=== PATIENT | female | born 1935 | race Caucasian/White ===

== ENCOUNTER 2017-04-28 17:52 | Inpatient (IN) ==
[2017-04-28] MEDS ORDERED: Ipratropium/Albuterol Neb 3 ML IH ONE (18:23)
[2017-04-28] MEDS ORDERED: methylPREDNISolone 125 MG/2 ML VIAL IVP ONE (18:23)
--- NOTE | 2017-04-28 18:27 | Emergency Department Note ---
Disposition Clinical Impression: Acute exacerbation of chronic obstructive airways disease, HEIDY (acute kidney injury) Acute and chronic respiratory failure Qualifiers: Respiratory failure complication: hypoxia and hypercapnia Qualified Code(s): J96.21 - Acute and chronic respiratory failure with hypoxia; J96.22 - Acute and chronic respiratory failure with hypercapnia; J96.22 - Acute and chronic respiratory failure with hypercapnia; J96.22 - Acute and chronic respiratory failure with hypercapnia Disposition: Admitted As Inpatient Referrals: Virgilio Delcid Jr, MD [Primary Care Provider] - Forms: ED Satisfaction Letter Time of Disposition: 22:02 SOB HPI - General Chief Complaint: ED Shortness of Breath/Dyspnea Stated Complaint: SHABNAM Time Seen by Provider: 04/28/17 18:21 Source: patient Limitations: no limitations Nursing Notes Reviewed: Yes Vital Signs Reviewed: Yes - History of Present Illness Mrs. Jesus, an 82-year-old female, presents from home for evaluation of increased work of breathing. Onset this afternoon and persisted. Mildly improved with at home albuterol nebulizer. Patient has history of chronic respiratory failure; COPD on 2.5 L oxygen continuous. PMH: COPD, A. fib on unknown anticoagulant, Parkinson's, hyperlipidemia ROS: Positive: Dyspnea, increased work of breathing Negative: Fever, chills, nausea, vomiting, chest pains, palpitations, abdominal pains, unusual weakness, cough, vertigo - Related Data Home Medications Medication Instructions Recorded Confirmed Carbidopa/Levodopa ER 50/200 1 each PO TID #0 02/26/15 04/28/17 [Sinemet ER 50-200 TAB] Quetiapine Fumarate [SEROquel] 12.5 mg PO HS #0 02/26/15 04/28/17 Diltiazem HCl [Diltiazem ER] 180 mg PO DAILY 04/28/17 04/28/17 Ipratropium/Albuterol Neb [Duoneb] 3 ml IH Q4H PRN 04/28/17 04/28/17 Previous Rx's Medication Instructions Recorded Aspirin Enteric Coated [Aspirin EC] 81 mg PO DAILY #30 tablet. 03/08/15 Calcitriol [Rocaltrol] 0.25 mcg PO DAILY #30 capsule 03/08/15 Allergies Allergy/AdvReac Type Severity Reaction Status Date / Time No Known Allergies Allergy Verified 02/25/15 19:57 All systems ED: reviewed and negative except as stated. 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 With her baseline 3 L oxygen via nasal cannula, she was oxygenating in the mid 70s on intake. Patient is oxygenating well with a nonrebreather however she is ventilating poorly in that she has significant hypercarbia; will begin BiPAP. Patient tolerating BiPAP quite well. O2 saturation high 90s. Chest x-ray not concerning for acute process. Initial lab specimens clotted; rejected. Will redraw. Lab work shows elevated creatinine which is above patient's baseline; acute kidney injury. I discussed the patient with the admitting hospitalist, Dr. Rousseau, who agrees to accept the patient for continued evaluation and management. Chest X-Ray 04/28/17 18:23 IMPRESSION: Minimal irregular opacity is seen over the right apex. This may be artifactual due to overlapping structures or represent a small lung nodule. Dedicated chest CT recommended for further evaluation on a nonemergent basis. D/ / Lin East MD / Lin East MD Interpreting Provider: Lin East MD Vital Signs Temperature 98.5 F 04/28/17 18:13 Pulse Rate 105 04/28/17 18:13 Respiratory Rate 18 04/28/17 18:13 Blood Pressure 144/79 04/28/17 18:13 O2 Sat by Pulse Oximetry 70 04/28/17 18:13 Temperature 98.5 F 04/28/17 18:13 Pulse Rate 92 04/28/17 21:00 Respiratory Rate 27 04/28/17 21:19 Blood Pressure 123/70 04/28/17 21:00 O2 Sat by Pulse Oximetry 100 04/28/17 21:19 Oxygen Delivery Oxygen Delivery Bipap Shortness of Breath/Dyspnea - Lab Data Result diagrams: 04/28/17 21:14 04/28/17 20:32 Lab Results 04/28/17 04/28/17 04/28/17 Range/Units 18:37 19:30 20:32 WBC (4.3-11.1) K/mcL RBC (3.82-4.97) M/mcL Hgb (11.5-15.4) g/dL Hct (35.3-44.9) % MCV (83.0-100.0) fL MCH (28.0-33.3) pg MCHC (31.6-35.5) g/dL RDW (11.5-14.5) % Plt Count (140-400) K/mcL MPV (9.4-12.4) fL Immature Gran % (0-4) % Seg Neutrophils % % Lymphocytes % % Monocytes % % Eosinophils % % Basophils % % Neutrophils # (1.6-8.9) K/mcL Lymphocytes # (0.6-4.6) K/mcL Monocytes # (0.0-1.3) K/mcL Eosinophils # (0.0-0.6) K/mcL Basophils # (0.0-0.2) K/mcL Immature Plt Fraction (1.1-6.1) % ABG pH 7.34 (7.32-7.45) pH Units ABG pCO2 72 H* (35-45) mmHg ABG pO2 374 H (85-104) mmHg ABG HCO3 38 H (21-27) mEq/L ABG Total CO2 40 H (20-26) mEq/L ABG O2 Saturation 100 H (95-98) % ABG Base Excess 9 H (-2 to 3) mEq/L O2 Delivery Device NRB Inspired O2 100.0 (1-15=lpm zf87-673=%) Sodium 148 H (136-145) mEq/L Potassium 4.3 (3.5-4.5) mEq/L Chloride 107 (98-109) mEq/L Carbon Dioxide 28 (19-29) mEq/L BUN 31 H (7-20) mg/dL Creatinine 1.34 H (0.57-1.11) mg/dL Est GFR ( Amer) 46 L (> 60) Est GFR (Non-Af Amer) 38 L (> 60) BUN/Creatinine Ratio 23 (6-26) Glucose 201 H (70-99) mg/dL Calculated Osmolality 318 H (280-300) Calcium 10.5 (8.6-10.8) mg/dL Specimen Rejected Clotted 04/28/17 Range/Units 21:14 WBC 10.1 (4.3-11.1) K/mcL RBC 4.02 (3.82-4.97) M/mcL Hgb 11.9 (11.5-15.4) g/dL Hct 39.5 (35.3-44.9) % MCV 98.3 (83.0-100.0) fL MCH 29.6 (28.0-33.3) pg MCHC 30.1 L (31.6-35.5) g/dL RDW 14.6 H (11.5-14.5) % Plt Count 217 (140-400) K/mcL MPV 10.3 (9.4-12.4) fL Immature Gran % 0.5 (0-4) % Seg Neutrophils % 86.2 % Lymphocytes % 9.4 % Monocytes % 3.4 % Eosinophils % 0.3 % Basophils % 0.2 % Neutrophils # 8.7 (1.6-8.9) K/mcL Lymphocytes # 1.0 (0.6-4.6) K/mcL Monocytes # 0.3 (0.0-1.3) K/mcL Eosinophils # 0.0 (0.0-0.6) K/mcL Basophils # 0.0 (0.0-0.2) K/mcL Immature Plt Fraction 3.4 (1.1-6.1) % ABG pH (7.32-7.45) pH Units ABG pCO2 (35-45) mmHg ABG pO2 (85-104) mmHg ABG HCO3 (21-27) mEq/L ABG Total CO2 (20-26) mEq/L ABG O2 Saturation (95-98) % ABG Base Excess (-2 to 3) mEq/L O2 Delivery Device Inspired O2 (1-15=lpm [id number]=%) Sodium (136-145) mEq/L Potassium (3.5-4.5) mEq/L Chloride (98-109) mEq/L Carbon Dioxide (19-29) mEq/L BUN (7-20) mg/dL Creatinine (0.57-1.11) mg/dL Est GFR ( Amer) (> 60) Est GFR (Non-Af Amer) (> 60) BUN/Creatinine Ratio (6-26) Glucose (70-99) mg/dL Calculated Osmolality (280-300) Calcium (8.6-10.8) mg/dL Specimen Rejected - EKG Data EKG attestation: Yes I reviewed and interpreted this EKG. EKG results narrative: EKG dated 28 April 2017 at 18:25 interpreted as sinus rhythm with a rate of 96. Normal intervals OK 168, QRS 75, QT/QTC 344/. Normal intervals. Nonspecific ST-T changes. Compared to previous dated 03/03/2015 showing no acute extremity changes comparison.
--- NOTE | 2017-04-28 18:28 | Emergency Department Note ---
Disposition Clinical Impression: Acute exacerbation of chronic obstructive airways disease, HEIDY (acute kidney injury), Acute and chronic respiratory failure Disposition: Admitted As Inpatient General Adult HPI - General Chief complaint: ED Shortness of Breath/Dyspnea Stated complaint: SHABNAM Time Seen by Provider: 04/28/17 18:21 Source: patient Limitations: no limitations - History of Present Illness Pain Scale: 5 - Related Data Home Medications Medication Instructions Recorded Confirmed Carbidopa/Levodopa ER 50/200 1 each PO TID #0 02/26/15 04/28/17 [Sinemet ER 50-200 TAB] Quetiapine Fumarate [SEROquel] 12.5 mg PO HS #0 02/26/15 04/28/17 Diltiazem HCl [Diltiazem ER] 180 mg PO DAILY 04/28/17 04/28/17 Ipratropium/Albuterol Neb [Duoneb] 3 ml IH Q4H PRN 04/28/17 04/28/17 Previous Rx's Medication Instructions Recorded Aspirin Enteric Coated [Aspirin EC] 81 mg PO DAILY #30 tablet. 03/08/15 Calcitriol [Rocaltrol] 0.25 mcg PO DAILY #30 capsule 03/08/15 Allergies Allergy/AdvReac Type Severity Reaction Status Date / Time No Known Allergies Allergy Verified 02/25/15 19:57 Past Medical History - Past Medical History Medical history: Reports: COPD, dementia, other Surgical history: Reports: hysterectomy, other (neck surgery) Psychiatric history: Reports: no psych history INSIDE ACCOUNT REPRESENTATIVE history: Reports: non-contributory - Social History Smoking Status: Heavy tobacco smoker Smokeless Tobacco Status: No Alcohol use: Reports: none Drug use: Reports: none Physical Exam - General Limitations: no limitations General appearance: alert, in no apparent distress Course Vital Signs Temperature 98.5 F 04/28/17 18:13 Pulse Rate 105 04/28/17 18:13 Respiratory Rate 18 04/28/17 18:13 Blood Pressure 144/79 04/28/17 18:13 O2 Sat by Pulse Oximetry 70 04/28/17 18:13 Temperature 97.6 F 04/29/17 06:30 Pulse Rate 73 04/29/17 06:30 Respiratory Rate 18 04/29/17 06:30 Blood Pressure 117/70 04/29/17 06:30 O2 Sat by Pulse Oximetry 100 11/07/17 06:30 Oxygen Delivery Oxygen Delivery Room Air Medical Decision Making - Lab Data Result diagrams: 04/29/17 07:15 04/29/17 07:15 Lab Results 04/28/17 04/28/17 04/28/17 Range/Units 18:37 19:30 20:32 WBC (4.3-11.1) K/mcL RBC (3.82-4.97) M/mcL Hgb (11.5-15.4) g/dL Hct (35.3-44.9) % MCV (83.0-100.0) fL MCH (28.0-33.3) pg MCHC (31.6-35.5) g/dL RDW (11.5-14.5) % Plt Count (140-400) K/mcL MPV (9.4-12.4) fL Immature Gran % (0-4) % Seg Neutrophils % % Lymphocytes % % Monocytes % % Eosinophils % % Basophils % % Neutrophils # (1.6-8.9) K/mcL Lymphocytes # (0.6-4.6) K/mcL Monocytes # (0.0-1.3) K/mcL Eosinophils # (0.0-0.6) K/mcL Basophils # (0.0-0.2) K/mcL Immature Plt Fraction (1.1-6.1) % Sample Site ABG pH 7.34 (7.32-7.45) pH Units ABG pCO2 72 H* (35-45) mmHg ABG pO2 374 H (85-104) mmHg ABG HCO3 38 H (21-27) mEq/L ABG Total CO2 40 H (20-26) mEq/L ABG O2 Saturation 100 H (95-98) % ABG Base Excess 9 H (-2 to 3) mEq/L Geoff Test O2 Delivery Device NRB Inspired O2 100.0 (1-15=lpm zp14-490=%) Sodium 148 H (136-145) mEq/L Potassium 4.3 (3.5-4.5) mEq/L Chloride 107 (98-109) mEq/L Carbon Dioxide 28 (19-29) mEq/L BUN 31 H (7-20) mg/dL Creatinine 1.34 H (0.57-1.11) mg/dL Est GFR ( Amer) 46 L (> 60) Est GFR (Non-Af Amer) 38 L (> 60) BUN/Creatinine Ratio 23 (6-26) Glucose 201 H (70-99) mg/dL Calculated Osmolality 318 H (280-300) Calcium 10.5 (8.6-10.8) mg/dL Specimen Rejected Clotted 04/28/17 04/29/17 Range/Units 21:14 06:08 WBC 10.1 (4.3-11.1) K/mcL RBC 4.02 (3.82-4.97) M/mcL Hgb 11.9 (11.5-15.4) g/dL Hct 39.5 (35.3-44.9) % MCV 98.3 (83.0-100.0) fL MCH 29.6 (28.0-33.3) pg MCHC 30.1 L (31.6-35.5) g/dL RDW 14.6 H (11.5-14.5) % Plt Count 217 (140-400) K/mcL MPV 10.3 (9.4-12.4) fL Immature Gran % 0.5 (0-4) % Seg Neutrophils % 86.2 % Lymphocytes % 9.4 % Monocytes % 3.4 % Eosinophils % 0.3 % Basophils % 0.2 % Neutrophils # 8.7 (1.6-8.9) K/mcL Lymphocytes # 1.0 (0.6-4.6) K/mcL Monocytes # 0.3 (0.0-1.3) K/mcL Eosinophils # 0.0 (0.0-0.6) K/mcL Basophils # 0.0 (0.0-0.2) K/mcL Immature Plt Fraction 3.4 (1.1-6.1) % Sample Site R Radial ABG pH 7.32 (7.32-7.45) pH Units ABG pCO2 60 H (35-45) mmHg ABG pO2 96 (85-104) mmHg ABG HCO3 31 H (21-27) mEq/L ABG Total CO2 33 H (20-26) mEq/L ABG O2 Saturation 97 (95-98) % ABG Base Excess 3 (-2 to 3) mEq/L Geoff Test N/A O2 Delivery Device BiPAP Inspired O2 40.0 (1-15=lpm fe72-485=%) Sodium (136-145) mEq/L Potassium (3.5-4.5) mEq/L Chloride (98-109) mEq/L Carbon Dioxide (19-29) mEq/L BUN (7-20) mg/dL Creatinine (0.57-1.11) mg/dL Est GFR ( Amer) (> 60) Est GFR (Non-Af Amer) (> 60) BUN/Creatinine Ratio (6-26) Glucose (70-99) mg/dL Calculated Osmolality (280-300) Calcium (8.6-10.8) mg/dL Specimen Rejected Critical Care Time Critical Care Time: Yes Total Critical Care Time: 30 Attestation: Dyspnea with hypercarbia per blood gas interpretation require any BiPAP Attestation Statement - Attestation Attestation: I examined this patient and my medical decision-making was reviewed with the Resident Physician. I agree with the documented findings, disposition and treatment plan as described except to the extent set forth below. [id number] time provided Patient arrives in the care of her family. She is a limited historian due to dementia. She exhibits pursed lip breathing and tachypnea upon arrival. She has known history of oxygen-dependent COPD
[2017-04-28 18:43] LABS: ABG Base Excess 9 mEq/L (-2 to 3); ABG HCO3 38 mEq/L (21-27); ABG Oxygen Saturation 100 % (95-98); ABG PCO2 72 mmHg (35-45); ABG PH 7.34 pH Units (7.32-7.45); ABG PO2 374 mmHg (85-104); ABG TCO2 40 mEq/L (20-26)
[2017-04-28 20:55] LABS: Calcium 10.5 mg/dL (8.6-10.8); Potassium 4.3 mEq/L (3.5-4.5)
[2017-04-28 21:21] LABS: Basophils % 0.2 %; Eosinophils % 0.3 %; Hematocrit 39.5 % (35.3-44.9); Hemoglobin 11.9 g/dL (11.5-15.4); Immature Granulocytes % 0.5 % (0-4); Immature Platelets 3.4 % (1.1-6.1); Lymphocytes % 9.4 %; Mean Corpuscular HGB Conc 30.1 g/dL (31.6-35.5); Mean Corpuscular Hemoglobin 29.6 pg (28.0-33.3); Mean Corpuscular Volume 98.3 fL (83.0-100.0); Mean Platelet Volume 10.3 fL (9.4-12.4); Monocytes # 0.3 K/mcL (0.0-1.3); Monocytes % 3.4 %; Neutrophils # 8.7 K/mcL (1.6-8.9); Platelet Count 217 K/mcL (140-400); Red Blood Count 4.02 M/mcL (3.82-4.97); Red Cell Distribution Width 14.6 % (11.5-14.5); Segmented Neutrophils % 86.2 %
--- NOTE | 2017-04-29 03:32 | Internal Med History&Physical ---
<Juan Francisco Medina - Last Filed: 04/29/17 04:51> Date of Encounter: 04/29/17 Time of Encounter: 03:29 Assessment and Plan (1) Acute and chronic respiratory failure ([id number]) Current visit: Yes Status: Acute - Likely secondary to COPD exacerbation given the recent information as well as past medical history - Patient was noted to be hypoxic and hypercapnic in the emergency department - Started on BiPAP and patient is tolerating it well. Unable to express plaints at this time - Saturating well, will follow up with ABG in a.m. - Per nursing, however turning is okay with short-term intubation if necessary - Further management as below Qualifiers: Respiratory failure complication: hypoxia and hypercapnia Qualified Code(s) : J96.21 - Acute and chronic respiratory failure with hypoxia; J96.22 - Acute and chronic respiratory failure with hypercapnia; J96.22 - Acute and chronic respiratory failure with hypercapnia; J96.22 - Acute and chronic respiratory failure with hypercapnia (2) Acute on chronic renal failure Current visit: Yes Status: Acute - Per records review, patient has a history of chronic kidney disease - Baseline creatinine around 0.9-1.1. - Patient noted to have elevated BUN/creatinine at admission Of 311.34 -Most likely related to decreased oral intake, dehydration - Family reports decreased urine output and increased concentration of urine. - Patient is incontinent of urine. Will Place Tijerina catheter to obtain urine sample -Gentle IV hydration Qualifiers: Acute renal failure type: unspecified Chronic kidney disease stage: stage 3 (moderate) Qualified Code(s): N17.9 - Acute kidney failure, unspecified; N18.3 - Chronic kidney disease, stage 3 (moderate); N18.3 - Chronic kidney disease, stage 3 (moderate) (3) COPD exacerbation Current visit: Yes Status: Acute - BiPAP as necessary for hypercapnic hypoxic acute on chronic respiratory failure - Patient normally wears 3 L of oxygen via nasal cannula at home - We will give methylprednisone 40 milligrams IV twice a day as patient is able to tolerate by mouth meds - Azithromycin 500 mg daily, DuoNeb's - Repeat ABG in morning (4) Hypercapnic acidosis Current visit: Yes Status: Acute Secondary to COPD exacerbation as above (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 visit: Yes Status: Chronic - Per nursing report from family and patient at baseline is minimally vocal, bedbound - Patient unable to tolerate by mouth meds at this time, will continue home meds when able Qualifiers: Dementia behavioral disturbance: without behavioral disturbance Qualified Code(s): G20 - Parkinson's disease; F02.80 - Dementia in other diseases classified elsewhere without behavioral disturbance; F02.80 - Dementia in other diseases classified elsewhere without behavioral disturbance; F02.80 - Dementia in other diseases classified elsewhere without behavioral disturbance (6) Tobacco abuse Current visit: Yes Status: Chronic - Unknown baseline tobacco usage. - Patient unable to vocalize needs for nicotine patch at this time (7) DVT prophylaxis Current visit: No Status: Acute - Heparin 5000 units twice a day Internal Medicine - H&P: HPI Chief complaint: Difficulty breathing Admitted From: Emergency Dept Plans for Post Hospital Care: Home History of present illness: Ms. Jesus is a 82 year old female presents to the emergency room with family who reported pt had increased work of breathing. Her intelligence interview, patient is nonverbal and family is not at bedside. History obtained ROM emergency department reports as well as nursing who communicated with family who is power of research attorney. Patient is reportedly visiting from [place] where she is at a long-term care facility as well as receiving home health. She has a history of Parkinson's dementia, COPD requiring supplemental oxygen, 3 L. Family apparently noticed her having increased work of breathing and shortness of breath. She is reportedly minimally vocal at baseline, bedbound. In the emergency department, patient was noted to be hypoxic at 70% on 3 L of oxygen. He was placed on BiPAP. She was also noted to be tachycardic. Lab results were significant for arterial blood gas show respiratory acidosis with CO2 level of 72. HEIDY. CXR showed no acute process. Past Med Surg Social Fam HX - Past Medical History Medical history: COPD, dementia, other Psychiatric history: no psych history - Past Surgical History Surgical History: hysterectomy, other - Social History Smoking Status: Heavy tobacco smoker Smokeless Tobacco Status: No Alcohol use: none Drug use: none - Family History Father Adopted: No Living Status: Hx Family Cardiac Disorders: Yes Hx Family Respiratory Disorders: No Hx Family Cancer: No Hx Family GI Disorders: No Hx Family Endocrine Disorder: Yes Hx Family Neuromuscular Disorders: No Hx Family Neurologic Disorders: No Hx Family HEENT Disorders: No Hx Family Autoimmune Disorders: No Internal Medicine - H&P: Meds Carbidopa/Levodopa ER 50/200 [Sinemet ER 50-200 TAB] 1 each PO TID #0 02/26/15 [ History] Quetiapine Fumarate [SEROquel] 12.5 mg PO HS #0 02/26/15 [History] Aspirin Enteric Coated [Aspirin EC] 81 mg PO DAILY #30 tablet.dr 03/08/15 [Rx] Calcitriol [Rocaltrol] 0.25 mcg PO DAILY #30 capsule 03/08/15 [Rx] Diltiazem HCl [Diltiazem ER] 180 mg PO DAILY 04/28/17 [History] Ipratropium/Albuterol Neb [Duoneb] 3 ml IH Q4H PRN 04/28/17 [History] 3 Allergy/AdvReac Type Severity Reaction Status Date / Time No Known Allergies Allergy Verified 02/25/15 19:57 ROS unobtainable: due to mental status All Systems PM: A 10-system review of systems was performed and is negative for pertinent findings except as documented above in the HPI. - Constitutional Vitals: Temp Pulse Resp BP Pulse Ox 98.2 F 82 22 116/67 100 04/29/17 00:41 04/29/17 00:41 04/29/17 00:41 04/29/17 00:41 04/29/17 00:41 Exam: Gen: Elderly female resting in bed BiPAP in place. Nonvocal. Eye tracking to voice. Vitals noted. No acute distress. HEENT: scarred pupils, bipap in place. unable to evaluate oral cavity Cardiac: RRR, no murmur, +S1/S2 Pulmonary: difficulty assessing auscultation given bipap. No obvious rales, wheezes. equal chest expansion Abdomen: soft, nontender, BS noted, no guarding MSK: ROM intact, no joint swelling noted Extremities: no BLE edema, no cyanosis or clubbing Neuro: tremors. Non vocal. Eye tracking to vocal stimuli. Psych: Unable to determine. Internal Med - H&P Results - Labs CBC & Chem 7: 04/28/17 21:14 04/28/17 20:32 <Chidi Lindsey - Last Filed: 04/29/17 06:21> Date of Encounter: 04/29/17 Time of Encounter: 05:05 Internal Medicine - H&P: HPI History of present illness: Patient is nonverbal. All history obtained from RN and libertarian reports. ROS unobtainable: due to mental status - Constitutional Vitals: Temp Pulse Resp BP Pulse Ox 98.2 F 82 14 116/67 98 04/29/17 00:41 04/29/17 00:41 04/29/17 04:40 04/29/17 00:41 04/29/17 04:40 General appearance: Present: A&O X 0, no acute distress - Head Head exam: Present: atraumatic - Eye Eye exam: Present: PERRL. Absent: scleral icterus - ENT ENT exam: Present: mucous membranes dry Additional comments: BiPap mask in place - Neck Neck exam general surgery: Present: full ROM, supple. Absent: tenderness, trachea midline - Respiratory Respiratory exam: Present: accessory muscle use (mild), rhonchi, wheezes (rare scattered wheezes). Absent: chest wall tenderness, rales, respiratory distress - Cardiovascular Cardiovascular exam: Present: distant heart sounds, +S1, +S2. Absent: JVD, systolic murmur - GI/Abdominal GI/Abdominal exam: Present: soft. Absent: hepatomegaly, splenomegaly, tenderness - Extremities Exam Extremities exam: Present: warm, radial pulses palpable and symmetrical. Absent : calf tenderness, cyanotic, pedal edema - Neurological Exam Neurological exam: Present: altered Additional comments: non-verbal; resting tremor - Skin Skin exam: Present: dry, warm. Absent: rash Internal Med - H&P Results - Labs CBC & Chem 7: 04/28/17 21:14 04/28/17 20:32 - Diagnostic Studies Chest x-ray Status: image reviewed by me (negative in my opinion; radiology notes minimal opacity in right apex) - Attending Attestation I discussed the patient [place], PMH, lab data, and exam findings with Dr. Medina. I also discussed at length with patient's RN. I then saw and examined patient independently as well. Patient is resting comfortably in bed on BiPap. She responds to pain and loud stimuli. She will not acknowledge me or try to make eye contact. Family is not present. Patient was DNR-CC prior to admission. She is now DNR-Arrest. I recommend patient and family discuss end of life issues in the near future. If patient unable to come off BiPap, I would not recommend intubation and mechanical ventilation. I will consult palliative care to assist with goals of care. Other than my comments above and noted exam findings, I agree with Dr. Medina's assessment and plan.
[2017-04-29] MEDS ORDERED: Naloxone 0.4 MG/ML INJ IVP PRN (03:35)
[2017-04-29] MEDS ORDERED: *HR* Morphine 2 MG/ML SYRINGE IVP PRN (03:35)
[2017-04-29] MEDS ORDERED: *HR* OxyCODONE Immed Rel 5 MG TABLET PO PRN (03:35)
[2017-04-29] MEDS ORDERED: Ondansetron 4 MG/2 ML VIAL IVP PRN (03:35)
[2017-04-29] MEDS ORDERED: Acetaminophen 325 MG TABLET PO PRN (03:35)
[2017-04-29] MEDS ORDERED: 0.9 % Sodium Chloride 250 ML IVC ONE (03:53)
[2017-04-29] MEDS: Azithromycin 500 MG in D5% in Water 250 ML IVPB SCH (04:17)
[2017-04-29] MEDS: *HR* Heparin 5,000 UNIT/ML VIAL SQ SCH ×2 (04:18→18:00)
[2017-04-29] MEDS: Ipratropium/Albuterol Neb 3 ML IH SCH ×4 (04:40→23:58)
[2017-04-29 06:12] LABS: ABG Base Excess 3 mEq/L (-2 to 3); ABG HCO3 31 mEq/L (21-27); ABG Oxygen Saturation 97 % (95-98); ABG PCO2 60 mmHg (35-45); ABG PH 7.32 pH Units (7.32-7.45); ABG PO2 96 mmHg (85-104); ABG TCO2 33 mEq/L (20-26)
[2017-04-29] MEDS: MethylPREDNISolone 40 MG/ML VIAL IVP SCH ×2 (07:47→20:41)
[2017-04-29 07:50] LABS: Hematocrit 42.8 % (35.3-44.9); Hemoglobin 12.8 g/dL (11.5-15.4); Immature Granulocytes % 0.5 % (0-4); Lymphocytes # 0.6 K/mcL (0.6-4.6); Lymphocytes % 10.2 %; Mean Corpuscular HGB Conc 29.9 g/dL (31.6-35.5); Mean Corpuscular Hemoglobin 29.6 pg (28.0-33.3); Mean Corpuscular Volume 99.1 fL (83.0-100.0); Mean Platelet Volume 11.1 fL (9.4-12.4); Monocytes # 0.1 K/mcL (0.0-1.3); Monocytes % 1.4 %; Neutrophils # 5.1 K/mcL (1.6-8.9); Platelet Count 186 K/mcL (140-400); Red Blood Count 4.32 M/mcL (3.82-4.97); Red Cell Distribution Width 14.9 % (11.5-14.5); Segmented Neutrophils % 87.9 %
[2017-04-29 08:00] LABS: Calcium 10.5 mg/dL (8.6-10.8); Potassium 4.6 mEq/L (3.5-4.5)
[2017-04-29 08:23] LABS: Hemoglobin A1C 5.4 %
--- NOTE | 2017-04-29 10:50 | Palliative - Consult Note ---
Date of Encounter: 04/29/17 Time of Encounter: 10:50 - Assessment and Plan (1) Dyspnea Current Visit: Yes Status: Acute Assessment and plan: Appears to be tolerating bipap well and in no distress. Hopefully this can be weaned off some today. Continues on steroids/nebs. Qualifiers: Dyspnea type: unspecified Qualified Code(s): R06.00 - Dyspnea, unspecified (2) Counseling regarding advanced care planning and goals of care Current Visit: Yes Status: Acute Assessment and plan: Awaiting family to arrive. Nurse to notify team when daughter is here. (3) COPD exacerbation Current Visit: Yes Status: Acute (4) Parkinson disease Current Visit: No Status: Chronic Palliative-CN HPI - Data of Consult Consult date: 04/29/17 Requesting Physician: Alan Alejo MD Primary Care Provider: Virgilio Delcid Jr, MD - Consult Narrative History of present illness: Ms. Jesus is a 82 year old female brought to the ER last night with c/o difficulty in breathing. There is no family present so HPI obtained from chart review and discussion with nurse. She apparently resides in [place] half of the year with family. Daughter is next of kin and reported POA, however, there is nothing on file here. She has history of COPD and is on oxygen at baseline at home. Other medical issues include: Parkinson's, dementia, COPD, She has smoking history. Found to be hypoxia and hypercapneic in ED - placed on bipap which she has tolerated well. CO2 down to 60 from 72 initally. She has been started on IV steroids/nebs. Upon my visit, she opens eyes when spoken to. Appears [place] or has difficulty hearing while on bipap. Speech is difficult to understand at this time, but she did follow a few simple commands. Answered "2" when I asked how many children she has. Appears calm and comfortable and not in acute distress. CC: Alan Alejo MD Past Med Surg Social Fam HX - Past Medical History Medical history: COPD, dementia, other Psychiatric history: no psych history - Past Surgical History Surgical History: hysterectomy, other - Social History Smoking Status: Heavy tobacco smoker Smokeless Tobacco Status: No Alcohol use: none Drug use: none - Family History Father Adopted: No Living Status: Hx Family Cardiac Disorders: Yes Hx Family Respiratory Disorders: No Hx Family Cancer: No Hx Family GI Disorders: No Hx Family Endocrine Disorder: Yes Hx Family Neuromuscular Disorders: No Hx Family Neurologic Disorders: No Hx Family HEENT Disorders: No Hx Family Autoimmune Disorders: No Medications and Allergies Carbidopa/Levodopa ER 50/200 [Sinemet ER 50-200 TAB] 1 each PO TID #0 02/26/15 [ History] Quetiapine Fumarate [SEROquel] 12.5 mg PO HS #0 02/26/15 [History] Aspirin Enteric Coated [Aspirin EC] 81 mg PO DAILY #30 tablet.dr 03/08/15 [Rx] Calcitriol [Rocaltrol] 0.25 mcg PO DAILY #30 capsule 03/08/15 [Rx] Diltiazem HCl [Diltiazem ER] 180 mg PO DAILY 04/28/17 [History] Ipratropium/Albuterol Neb [Duoneb] 3 ml IH Q4H PRN 04/28/17 [History] 3 Allergy/AdvReac Type Severity Reaction Status Date / Time No Known Allergies Allergy Verified 02/25/15 19:57 ROS unobtainable: due to mental status Palliative Care-Exam - Constitutional Vitals: Temp Pulse Resp BP Pulse Ox 97.6 F 73 18 117/70 100 04/29/17 06:30 04/29/17 06:30 04/29/17 06:30 04/29/17 06:30 04/29/17 06:30 General appearance: Present: thin - Head Head Exam: Present: normal inspection, normocephalic - Respiratory Respiratory exam: Present: decreased breath sounds, CTAB - Cardiovascular Cardiovascular exam: Present: +S1, +S2 - GI/Abdominal Exam GI/Abdominal exam: Present: normal bowel sounds, soft - Catheter Type: Urethral ([place]) - Extremities Exam Extremities exam: Present: normal capillary refill, normal inspection - Neurological Exam Neurological exam: Present: alert Additional comments: Unable to understand speech at this time. Does follow very simple commands - Skin Skin exam: Present: dry, pallor, warm Internal Medicine - CN: Reslt - Labs CBC & Chem 7: 04/29/17 07:15 04/29/17 07:15 Labs: Short CBC 04/29/17 Range/Units 07:15 WBC 5.8 (4.3-11.1) K/mcL Hgb 12.8 (11.5-15.4) g/dL Hct 42.8 (35.3-44.9) % Plt Count 186 (140-400) K/mcL Neutrophils # 5.1 (1.6-8.9) K/mcL BMP 04/29/17 07:15 Sodium 146 H Potassium 4.6 H Chloride 105 Carbon Dioxide 24 BUN 36 H Creatinine 1.61 H Glucose 237 H Calcium 10.5 - ABG Interpretation ABG results: ABG ABG pH 7.32 pH Units (7.32-7.45) 04/29/17 06:08 ABG pCO2 60 mmHg (35-45) H 04/29/17 06:08 ABG pO2 96 mmHg (85-104) 04/29/17 06:08 ABG O2 Saturation 97 % (95-98) 04/29/17 06:08 Consult Discharge Plan - Plan Referrals: Virgilio Delcid Jr, MD [Primary Care Provider] - Palliative Quality Palliative Quality: Screen for Code Status: NA (awaiting family), Screen for Goals of Care: NA, Screen for Pain: Yes, If Pain Regimen Started, Initiate Bowel Regimen: NA, Screen for Nausea/Vomitting: Yes
--- NOTE | 2017-04-29 17:13 | Internal Med Progress Note ---
Date of Encounter: 04/29/17 Time of Encounter: 16:30 - Assessment and plan (1) Acute and chronic respiratory failure ([id number]) Current Visit: Yes Status: Acute Assessment and plan: Acute on chronic hypercapnic respiratory failure - secondary to acute exacerbation of probable end-stage COPD Continue DuoNeb breathing treatment, O2 via nasal cannula, Solu-Medrol IV Patient is currently off BiPAP, will continue empiric IV azithromycin Chest x-ray - minimal irregular opacity over the right apex EKG - sinus rhythm with no acute ST-T changes ABG - reviewed Cardiac Telemetry, labs in a.m., monitor closely Qualifiers: Respiratory failure complication: hypoxia and hypercapnia Qualified Code(s) : J96.21 - Acute and chronic respiratory failure with hypoxia; J96.22 - Acute and chronic respiratory failure with hypercapnia; J96.22 - Acute and chronic respiratory failure with hypercapnia; J96.22 - Acute and chronic respiratory failure with hypercapnia (2) Acute on chronic renal failure Current Visit: Yes Status: Acute Assessment and plan: Acute kidney injury on chronic kidney disease stage III - likely secondary to poor oral intake, dehydration Continue IV fluids, labs in a.m. 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 Current Visit: Yes Status: Chronic Assessment and plan: Moderate to severe dementia, bedbound, patient does not verbalize well - without behavioral disturbances Swallow study - no evidence of aspiration Qualifiers: Dementia behavioral disturbance: without behavioral disturbance Qualified Code(s): G20 - Parkinson's disease; F02.80 - Dementia in other diseases classified elsewhere without behavioral disturbance; F02.80 - Dementia in other diseases classified elsewhere without behavioral disturbance; F02.80 - Dementia in other diseases classified elsewhere without behavioral disturbance (5) DVT prophylaxis Current Visit: Yes Status: Acute Assessment and plan: Continue heparin subcutaneous - Time Spent With Patient 25 - 35 minutes - Subjective Interval history: Examined this afternoon. Patient is awake. She is unable to provide any history due to medical condition and due to dementia. Daughter is at bedside, she states that patient's breathing has improved. No fever. Hemodynamically stable. Swallow study does not show any evidence of aspiration. Patient is currently on O2 via nasal cannula. Admitted last night for acute on chronic respiratory failure. No acute events or complaints. Patient is a DNR comfort care arrest DNI status. - Constitutional Vitals: Temp Pulse Resp BP Pulse Ox 98.0 F 104 18 157/73 95 04/29/17 16:09 04/29/17 16:09 04/29/17 16:09 04/29/17 16:09 04/29/17 16:09 General appearance: Present: A&O X 0, no acute distress Exam: Chronically ill-appearing, frail, generalized weakness, unable to provide history due to medical condition - Head Head exam: Present: atraumatic - Eye Eye exam: Present: EOMI - ENT ENT exam: Present: mucous membranes dry - Respiratory Respiratory exam: Present: wheezes (Mild bibasilar, otherwise clear to auscultation). Absent: accessory muscle use, rales, rhonchi, tachypnea - Cardiovascular Cardiovascular exam: Present: RRR, +S1, +S2 - GI/Abdominal GI/Abdominal exam: Present: soft. Absent: distended, firm, guarding, tenderness - Extremities Exam Extremities exam: Present: radial pulses palpable and symmetrical. Absent: calf tenderness, cyanotic, pedal edema - Neurological Exam Additional comments: Patient does not verbalize well, does not follow commands well, opens eyes spontaneously, eye tracking to vocal stimuli, able to withdraw to pain. Probable moderate to severe dementia. Internal Medicine: Result - Labs CBC & Chem 7: 04/29/17 07:15 04/29/17 07:15 Labs: Short CBC 04/29/17 Range/Units 07:15 WBC 5.8 (4.3-11.1) K/mcL Hgb 12.8 (11.5-15.4) g/dL Hct 42.8 (35.3-44.9) % Plt Count 186 (140-400) K/mcL Neutrophils # 5.1 (1.6-8.9) K/mcL BMP 04/29/17 07:15 Sodium 146 H Potassium 4.6 H Chloride 105 Carbon Dioxide 24 BUN 36 H Creatinine 1.61 H Glucose 237 H Calcium 10.5 - ABG Interpretation ABG results: ABG ABG pH 7.32 pH Units (7.32-7.45) 04/29/17 06:08 ABG pCO2 60 mmHg (35-45) H 04/29/17 06:08 ABG pO2 96 mmHg (85-104) 04/29/17 06:08 ABG O2 Saturation 97 % (95-98) 04/29/17 06:08 - Impressions Impressions Videofluoroscopic Swallow 04/29/17 11:21 IMPRESSION: 1. Deep penetration with thin liquids. No evidence of aspiration. Please see separate speech pathology report for full discussion of findings and recommendations. D/ / 04/29/2017 16:45:49 Tim Cary MD / miguel Interpreting Provider: Tim Cary MD Consult Discharge Plan - Plan Referrals: Virgilio Delcid Jr, MD [Primary Care Provider] -
[2017-04-29] MEDS: Aspirin Enteric Coated 81 MG Tablet PO SCH (17:47)
[2017-04-29] MEDS: 0.9 % Sodium Chloride 1,000 ML IVC SCH (19:12)
[2017-04-29] MEDS: Carbidopa/Levodopa ER 50/200 TABLET PO SCH (20:41)
[2017-04-29 22:50] LABS: Bilirubin,Urine Negative (Negative); Blood,Urine Trace (Negative); Clarity,Urine Clear (Clear); Color,Urine Yellow (Yellow); Glucose,Urine (UA) Normal (Normal); Ketones,Urine Negative (Negative); Leukocyte Esterase,Urine Trace (Negative); Nitrite,Urine Negative (Negative); Protein,Urine Trace mg/dL (Neg-Trace); Specific Gravity,Urine 1.022 (1.010-1.025); Urobilinogen,Urine Normal (Normal)
[2017-04-29 22:52] LABS: Bacteria,Urine Many per hpf (None-Few); Hyaline Casts,Urine Few per lpf (None-Few); RBC,Urine 0-3 per hpf (0-3); Squamous Epithelial Cell,Urine Moderate per lpf (None-Few)
[2017-04-30] MEDS: Azithromycin 500 MG in D5% in Water 250 ML IVPB SCH (03:32)
[2017-04-30] MEDS: Ipratropium/Albuterol Neb 3 ML IH SCH ×4 (04:12→22:51)
[2017-04-30] MEDS: *HR* Heparin 5,000 UNIT/ML VIAL SQ SCH ×2 (05:26→16:38)
[2017-04-30 05:44] LABS: Calcium 9.7 mg/dL (8.6-10.8); Potassium 5.8 mEq/L (3.5-4.5)
[2017-04-30] MEDS ORDERED: Diltiazem CD (24hr) 180 MG CAPSULE PO SCH (09:00)
--- NOTE | 2017-04-30 09:05 | Palliative Progress Note ---
Date of Encounter: 04/30/17 Time of Encounter: 09:00 - Assessment and plan (1) Dyspnea Current Visit: Yes Status: Acute Assessment and plan: Appears improved. On bipap last pm - removed this am and on nasal cannula. Continues with neb/steroids. Monitor Qualifiers: Dyspnea type: unspecified Qualified Code(s): R06.00 - Dyspnea, unspecified (2) Counseling regarding advanced care planning and goals of care Current Visit: Yes Status: Acute Assessment and plan: Will meet again with daughter this afternoon. Although pt meets criteria for hospice for both COPD and Parkinson's, I believe the daughter will lean toward home health at this point. food service utility worker to discuss options further with family this afternoon. I did order bipap qualification. Will f/u later today. (3) COPD exacerbation Current Visit: Yes Status: Acute (4) Dysphagia Current Visit: Yes Status: Acute Assessment and plan: MBS results noted and pt currently on pureed with honey thick by spoon. Tolerating breakfast well. Monitor (5) Parkinson disease Current Visit: No Status: Chronic - Time Spent With Patient Total time spent is greater than 50% in coordination of care (as documented) at patient's floor/unit and/or counseling patient: 25 - 35 minutes - Subjective Interval history: Patient awakened easily. Appears pleasant and smiling. Mumbling speech. Bipap removed and placed on NC. Eating well this am. Night nurse reports she was having apneic periods during sleep last pm. - Constitutional Vitals: Abnormal lab results MCHC 29.9 g/dL (31.6-35.5) L 04/29/17 07:15 RDW 14.9 % (11.5-14.5) H 04/29/17 07:15 ABG pCO2 60 mmHg (35-45) H 04/29/17 06:08 ABG HCO3 31 mEq/L (21-27) H 04/29/17 06:08 ABG Total CO2 33 mEq/L (20-26) H 04/29/17 06:08 Sodium 148 mEq/L (136-145) H 04/30/17 04:48 Potassium 5.8 mEq/L (3.5-4.5) H D 04/30/17 04:48 Chloride 111 mEq/L (98-109) H 04/30/17 04:48 BUN 51 mg/dL (7-20) H D 04/30/17 04:48 Creatinine 1.22 mg/dL (0.57-1.11) H 04/30/17 04:48 Est GFR ( Amer) 51 (> 60) L 04/30/17 04:48 Est GFR (Non-Af Amer) 42 (> 60) L 04/30/17 04:48 BUN/Creatinine Ratio 42 (6-26) H 04/30/17 04:48 Glucose 168 mg/dL (70-99) H 04/30/17 04:48 POC Glucose 147 (58-89) H 04/29/17 21:00 Calculated Osmolality 324 (280-300) H 04/30/17 04:48 Urine Blood Trace (Negative) H 04/29/17 22:45 Ur Leukocyte Esterase Trace (Negative) H 04/29/17 22:45 Urine Microscopic WBC 5-15 per hpf (0-3) H 04/29/17 22:45 Ur Squamous Epith Cells Moderate per lpf (None-Few) H 04/29/17 22:45 Urine Bacteria Many per hpf (None-Few) H 04/29/17 22:45 Ur Culture Indicated? YES (NO) A 04/29/17 22:45 General appearance: Present: no acute distress - Respiratory Respiratory exam: Present: decreased breath sounds, CTAB - Cardiovascular Cardiovascular exam: Present: +S1, +S2 - GI/Abdominal GI/Abdominal exam: Present: normal bowel sounds, soft - Additional comments: [place] with yellow urine - Extremities Exam Extremities exam: Present: normal capillary refill, normal inspection - Neurological Exam Neurological exam: Present: alert Additional comments: Patient with mumbling speech. SARGENT - does not follow commands. - Skin Skin exam: Present: dry, pallor, warm Palliative Quality Palliative Quality: Screen for Code Status: NA (awaiting family), Screen for Goals of Care: NA, Screen for Pain: Yes, If Pain Regimen Started, Initiate Bowel Regimen: NA, Screen for Nausea/Vomitting: Yes Code Status: 04/29/17 14:53 DNR [Resuscitation Status: Active] [RES] Routine Comment: Resuscitation Status: [id number] - Labs CBC & Chem 7: 04/29/17 07:15 04/30/17 04:48 Labs: Laboratory Results - last 24 hr 04/29/17 04/29/17 04/29/17 06:30 21:00 22:45 Sodium Potassium Chloride Carbon Dioxide BUN Creatinine Est GFR ( Amer) Est GFR (Non-Af Amer) BUN/Creatinine Ratio Glucose POC Glucose 250 H 147 H Calculated Osmolality Calcium Urine Color Yellow Urine Clarity Clear Urine pH 6.0 Ur Specific [place] 1.022 Urine Protein Trace Urine Glucose (UA) Normal Urine Ketones Negative Urine Blood Trace H Urine Nitrite Negative Urine Bilirubin Negative Urine Urobilinogen Normal Ur Leukocyte Esterase Trace H Urine Microscopic RBC 0-3 Urine Microscopic WBC 5-15 H Ur Squamous Epith Cells Moderate H Urine Bacteria Many H Hyaline Casts Few Ur Culture Indicated? YES A Specimen Rejected 04/30/17 04/30/17 03:42 04:48 Sodium 148 H Potassium 5.8 H D Chloride 111 H Carbon Dioxide 23 BUN 51 H D Creatinine 1.22 H Est GFR ( Amer) 51 L Est GFR (Non-Af Amer) 42 L BUN/Creatinine Ratio 42 H Glucose 168 H POC Glucose Calculated Osmolality 324 H Calcium 9.7 Urine Color Urine Clarity Urine pH Ur Specific [place] Urine Protein Urine Glucose (UA) Urine Ketones Urine Blood Urine Nitrite Urine Bilirubin Urine Urobilinogen Ur Leukocyte Esterase Urine Microscopic RBC Urine Microscopic WBC Ur Squamous Epith Cells Urine Bacteria Hyaline Casts Ur Culture Indicated? Specimen Rejected Hemolyzed - Impressions Impressions Videofluoroscopic Swallow 04/29/17 11:21 IMPRESSION: 1. Deep penetration with thin liquids. No evidence of aspiration. Please see separate speech pathology report for full discussion of findings and recommendations. D/ / 04/29/2017 16:45:49 Tim Cary MD / miguel Interpreting Provider: Tim Cary MD - ABG Interpretation ABG results: ABG ABG pH 7.32 pH Units (7.32-7.45) 04/29/17 06:08 ABG pCO2 60 mmHg (35-45) H 04/29/17 06:08 ABG pO2 96 mmHg (85-104) 04/29/17 06:08 ABG O2 Saturation 97 % (95-98) 04/29/17 06:08 Consult Discharge Plan - Plan Referrals: Virgilio Delcid Jr, MD [Primary Care Provider] -
[2017-04-30] MEDS: Aspirin Enteric Coated 81 MG Tablet PO SCH ×2 (09:50→11:51)
[2017-04-30] MEDS: MethylPREDNISolone 40 MG/ML VIAL IVP SCH ×2 (09:51→20:32)
--- NOTE | 2017-04-30 11:29 | Electrocardiograph Report ---
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
[2017-04-30] MEDS: Carbidopa/Levodopa 25/100 TABLET PO SCH ×3 (11:52→20:32)
--- NOTE | 2017-04-30 15:12 | Internal Med Progress Note ---
Date of Encounter: 04/30/17 Time of Encounter: 10:30 - Assessment and plan (1) Acute and chronic respiratory failure ([id number]) Current Visit: Yes Status: Acute Assessment and plan: Acute on chronic hypercapnic respiratory failure - secondary to acute exacerbation of probable end-stage COPD - slowly improving Continue DuoNeb breathing treatment, O2 via nasal cannula, Solu-Medrol IV Patient is currently off BiPAP, will continue empiric Azithromycin Chest x-ray - minimal irregular opacity over the right apex EKG - sinus rhythm with no acute ST-T changes ABG - reviewed Palliative care following Cardiac Telemetry, labs in a.m., monitor closely 04/30 - patient required BiPAP last night due to prolonged apneic spells, currently on O2 via nasal cannula, currently at baseline mental status Qualifiers: Respiratory failure complication: hypoxia and hypercapnia Qualified Code(s) : J96.21 - Acute and chronic respiratory failure with hypoxia; J96.22 - Acute and chronic respiratory failure with hypercapnia; J96.22 - Acute and chronic respiratory failure with hypercapnia; J96.22 - Acute and chronic respiratory failure with hypercapnia (2) Acute on chronic renal failure Current Visit: Yes Status: Acute Assessment and plan: Acute kidney injury on chronic kidney disease stage III - likely secondary to poor oral intake, dehydration - now improved Continue IV fluids, labs in a.m. 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 Current Visit: Yes Status: Chronic Assessment and plan: Moderate to severe dementia, bedbound, patient does not verbalize well - without behavioral disturbances Swallow study - no evidence of aspiration Palliative care following Qualifiers: Dementia behavioral disturbance: without behavioral disturbance Qualified Code(s): G20 - Parkinson's disease; F02.80 - Dementia in other diseases classified elsewhere without behavioral disturbance; F02.80 - Dementia in other diseases classified elsewhere without behavioral disturbance; F02.80 - Dementia in other diseases classified elsewhere without behavioral disturbance (5) DVT prophylaxis Current Visit: Yes Status: Acute Assessment and plan: Continue Heparin subcutaneous - Time Spent With Patient 25 - 35 minutes - Subjective Interval history: Examined this afternoon. Patient is awake. Not in any distress. She is unable to provide any history due to medical condition and due to dementia. Patient was on BiPAP last night, currently on nasal cannula. No fever. Hemodynamically stable. Swallow study does not show any evidence of aspiration. Patient did have prolonged apneic spells during sleep and required BiPAP. No other acute events or complaints. Admitted last night for acute on chronic respiratory failure. No acute events or complaints. Patient is a DNR comfort care arrest DNI status. Palliative care following. - Constitutional Vitals: Temp Pulse Resp BP Pulse Ox 98.2 F 105 20 123/70 98 04/30/17 10:54 04/30/17 10:54 04/30/17 10:54 04/30/17 10:54 04/30/17 10:54 General appearance: Present: A&O X 0, no acute distress Exam: Chronically ill-appearing, frail, generalized weakness, unable to provide history due to medical condition - Head Head exam: Present: atraumatic - Eye Eye exam: Present: sclera anicteric - ENT ENT exam: Present: mucous membranes dry - Respiratory Respiratory exam: Present: wheezes (Mild bibasilar, otherwise clear to auscultation). Absent: accessory muscle use, chest wall tenderness, rales, rhonchi, tachypnea - Cardiovascular Cardiovascular exam: Present: RRR, +S1, +S2 - GI/Abdominal GI/Abdominal exam: Present: soft. Absent: distended, firm, guarding, tenderness - Extremities Exam Extremities exam: Present: radial pulses palpable and symmetrical. Absent: calf tenderness, cyanotic, pedal edema - Neurological Exam Additional comments: Patient does not verbalize well, does not follow commands well, opens eyes spontaneously, eye tracking to vocal stimuli, able to withdraw to pain. Withdraws to painful stimuli. Probable moderate to severe dementia. Internal Medicine: Result - Labs CBC & Chem 7: 04/29/17 07:15 04/30/17 04:48 Labs: BMP 04/30/17 04:48 Sodium 148 H Potassium 5.8 H D Chloride 111 H Carbon Dioxide 23 BUN 51 H D Creatinine 1.22 H Glucose 168 H Calcium 9.7 Urine 04/29/17 Range/Units 22:45 Urine Color Yellow (Yellow) Urine Clarity Clear (Clear) Urine pH 6.0 (5.0-8.0) pH Units Ur Specific [place] 1.022 (1.010-1.025) Urine Protein Trace (Neg-Trace) mg/dL Urine Glucose (UA) Normal (Normal) mg/dL - ABG Interpretation ABG results: ABG ABG pH 7.32 pH Units (7.32-7.45) 04/29/17 06:08 ABG pCO2 60 mmHg (35-45) H 04/29/17 06:08 ABG pO2 96 mmHg (85-104) 04/29/17 06:08 ABG O2 Saturation 97 % (95-98) 04/29/17 06:08 - Impressions Impressions Videofluoroscopic Swallow 04/29/17 11:21 IMPRESSION: 1. Deep penetration with thin liquids. No evidence of aspiration. Please see separate speech pathology report for full discussion of findings and recommendations. D/ / 04/29/2017 16:45:49 Tim Cary MD / miguel Interpreting Provider: Tim Cary MD Consult Discharge Plan - Plan Referrals: Virgilio Delcid Jr, MD [Primary Care Provider] -
[2017-04-30] MEDS: 0.9 % Sodium Chloride 1,000 ML IVC SCH (16:09)
[2017-04-30] MEDS: Carbidopa/Levodopa ER 50/200 TABLET PO SCH (16:10)
[2017-04-30] MEDS: dilTIAZem HCl 60 MG TABLET PO SCH (16:38)
[2017-05-01] MEDS: dilTIAZem HCl 60 MG TABLET PO SCH ×4 (01:00→23:51)
[2017-05-01] MEDS: 0.9 % Sodium Chloride 1,000 ML IVC SCH (03:29)
[2017-05-01] MEDS: Ipratropium/Albuterol Neb 3 ML IH SCH ×4 (04:13→22:26)
[2017-05-01] MEDS: *HR* Heparin 5,000 UNIT/ML VIAL SQ SCH ×2 (05:21→18:13)
[2017-05-01 05:53] LABS: BUN/Creatinine Ratio 51 (6-26); Blood Urea Nitrogen 45 mg/dL (7-20); Calcium 9.3 mg/dL (8.6-10.8); Carbon Dioxide 27 mEq/L (19-29); Chloride 113 mEq/L (98-109); Glucose 180 mg/dL (70-99); Osmolality,Calculated 324 (280-300); Sodium 149 mEq/L (136-145); eGFR For African Americans > 60 (> 60); eGFR For Non-African Americans > 60 (> 60)
[2017-05-01] MEDS ORDERED: Azithromycin 250 MG TABLET PO SCH (07:00)
--- NOTE | 2017-05-01 08:53 | Event Note ---
Date of Encounter: 05/01/17 Time of Encounter: 08:50 MOre alert today and able to answer questions with short sentence responses. Denies any complaints and is asking to go home. No family present as of this time. Eating and tolerating modified diet well. Social service working on home health set up. Will f/u later if new issues arise with pt family re: goals of care.
[2017-05-01] MEDS ORDERED: Levofloxacin 750 MG/150 ML 750 MG/150 ML BAG IVPB SCH (09:00)
[2017-05-01] MEDS: Aspirin Enteric Coated 81 MG Tablet PO SCH (09:21)
[2017-05-01] MEDS: MethylPREDNISolone 40 MG/ML VIAL IVP SCH ×2 (09:21→20:43)
[2017-05-01] MEDS: Carbidopa/Levodopa 25/100 TABLET PO SCH ×3 (09:21→20:42)
[2017-05-01] MEDS ORDERED: levoFLOXacin 750 MG TABLET PO ONE (10:54)
--- NOTE | 2017-05-01 15:45 | Internal Med Progress Note ---
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 - symptoms slowly improving Continue DuoNeb breathing treatment, O2 via nasal cannula, Solu-Medrol IV Patient is currently off BiPAP, will continue empiric Levaquin Chest x-ray - minimal irregular opacity over the right apex EKG - sinus rhythm with no acute ST-T changes ABG - reviewed Urine culture - Escherichia coli Palliative care following - appreciate input Cardiac Telemetry, labs in a.m., monitor closely 04/30 - patient required BiPAP last night due to prolonged apneic spells, currently on O2 via nasal cannula, currently at baseline mental status 05/01 - patient is now doing well on O2 via nasal cannula. She has qualified for BiPAP at home. Her mental status seems to be baseline and seems to have improved since yesterday. Anticipate discharge soon. Qualifiers: Respiratory failure complication: hypoxia and hypercapnia Qualified Code(s) : J96.21 - Acute and chronic respiratory failure with hypoxia; J96.22 - Acute and chronic respiratory failure with hypercapnia; J96.22 - Acute and chronic respiratory failure with hypercapnia; J96.22 - Acute and chronic respiratory failure with hypercapnia (2) Acute on chronic renal failure Current Visit: Yes Status: Acute Assessment and plan: Acute kidney injury on chronic kidney disease stage III - likely secondary to poor oral intake, dehydration - now improved Continue IV fluids, labs in a.m. 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 Visit: Yes Status: Chronic Assessment and plan: Moderate to severe dementia, bedbound, patient does not verbalize well - without behavioral disturbances Swallow study - no evidence of aspiration - continue honey thickened liquids and pureed diet Palliative care following Qualifiers: Dementia behavioral disturbance: without behavioral disturbance Qualified Code(s): G20 - Parkinson's disease; F02.80 - Dementia in other diseases classified elsewhere without behavioral disturbance; F02.80 - Dementia in other diseases classified elsewhere without behavioral disturbance; F02.80 - Dementia in other diseases classified elsewhere without behavioral disturbance (5) DVT prophylaxis Current Visit: Yes Status: Acute Assessment and plan: Continue Heparin subcutaneous - Time Spent With Patient 25 - 35 minutes - Subjective Interval history: Examined this afternoon. Patient is awake and seems to be more responsive today. Not in any distress. Tolerating oral diet. She is unable to provide any history due to medical condition and due to dementia. Patient was on BiPAP last night, currently doing well on nasal cannula. No fever. Hemodynamically stable. Swallow study does not show any evidence of aspiration. Patient does qualify for BiPAP at home. No other acute events or complaints. Admitted for acute on chronic respiratory failure. No acute events or complaints. Patient is a DNR comfort care arrest DNI status. Palliative care following. - Constitutional Vitals: Temp Pulse Resp BP Pulse Ox 98.2 F 92 20 153/76 97 05/01/17 11:44 05/01/17 11:44 05/01/17 11:44 05/01/17 11:44 05/01/17 11:44 General appearance: Present: A&O X 0, no acute distress Exam: Chronically ill-appearing, frail, generalized weakness, unable to provide history due to medical condition - Head Head exam: Present: atraumatic - Eye Eye exam: Present: sclera anicteric - ENT ENT exam: Present: mucous membranes dry - Respiratory Respiratory exam: Present: wheezes (Mild bibasilar, otherwise clear). Absent: accessory muscle use, chest wall tenderness, rales, rhonchi, tachypnea - Cardiovascular Cardiovascular exam: Present: RRR, +S1, +S2 - GI/Abdominal GI/Abdominal exam: Present: soft. Absent: distended, firm, guarding, tenderness - Extremities Exam Extremities exam: Present: radial pulses palpable and symmetrical. Absent: calf tenderness, cyanotic, pedal edema - Neurological Exam Additional comments: Patient seems to be more responsive today. Trying to verbalize. Patient does not verbalize well, does not follow commands well, opens eyes spontaneously, eye tracking to vocal stimuli, able to withdraw to pain. Withdraws to painful stimuli. Moderate to severe dementia. Internal Medicine: Result - Labs CBC & Chem 7: 04/29/17 07:15 05/01/17 04:40 Labs: BMP 05/01/17 04:40 Sodium 149 H Potassium 4.0 D Chloride 113 H Carbon Dioxide 27 BUN 45 H Creatinine 0.88 Glucose 180 H Calcium 9.3 Urine 04/29/17 Range/Units 22:45 Urine Color Yellow (Yellow) Urine Clarity Clear (Clear) Urine pH 6.0 (5.0-8.0) pH Units Ur Specific [place] 1.022 (1.010-1.025) Urine Protein Trace (Neg-Trace) mg/dL Urine Glucose (UA) Normal (Normal) mg/dL - ABG Interpretation ABG results: ABG ABG pH 7.32 pH Units (7.32-7.45) 04/29/17 06:08 ABG pCO2 60 mmHg (35-45) H 04/29/17 06:08 ABG pO2 96 mmHg (85-104) 04/29/17 06:08 ABG O2 Saturation 97 % (95-98) 04/29/17 06:08 - Impressions Impressions Videofluoroscopic Swallow 04/29/17 11:21 IMPRESSION: 1. Deep penetration with thin liquids. No evidence of aspiration. Please see separate speech pathology report for full discussion of findings and recommendations. D/ / 04/29/2017 16:45:49 Tim Cary MD / miguel Interpreting Provider: Tim Cary MD Consult Discharge Plan - Plan Referrals: Virgilio Delcid Jr, MD [Primary Care Provider] -
[2017-05-02 03:58] LABS: BUN/Creatinine Ratio 39 (6-26); Blood Urea Nitrogen 38 mg/dL (7-20); Calcium 8.9 mg/dL (8.6-10.8); Carbon Dioxide 32 mEq/L (19-29); Chloride 108 mEq/L (98-109); Glucose 209 mg/dL (70-99); Osmolality,Calculated 317 (280-300); Potassium 4.1 mEq/L (3.5-4.5); Sodium 146 mEq/L (136-145); eGFR For African Americans > 60 (> 60); eGFR For Non-African Americans 55 (> 60)
[2017-05-02] MEDS: Ipratropium/Albuterol Neb 3 ML IH SCH ×4 (04:20→23:26)
[2017-05-02] MEDS: 0.9 % Sodium Chloride 1,000 ML IVC SCH ×2 (05:31→17:29)
[2017-05-02] MEDS: *HR* Heparin 5,000 UNIT/ML VIAL SQ SCH ×2 (05:31→17:29)
[2017-05-02] MEDS ORDERED: Levofloxacin 750 MG/150 ML 750 MG/150 ML BAG IVPB SCH (09:00)
[2017-05-02] MEDS: Aspirin Enteric Coated 81 MG Tablet PO SCH (09:37)
[2017-05-02] MEDS: Carbidopa/Levodopa 25/100 TABLET PO SCH ×3 (09:37→22:28)
[2017-05-02] MEDS: dilTIAZem HCl 60 MG TABLET PO SCH ×2 (09:37→16:13)
[2017-05-02] MEDS: MethylPREDNISolone 40 MG/ML VIAL IVP SCH ×2 (09:37→22:28)
[2017-05-02] MEDS ORDERED: cefTRIAXone 1,000 MG in Water for inj. (sterile) 10 ML IVP SCH (13:00)
--- NOTE | 2017-05-02 17:05 | Internal Med Progress Note ---
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 - symptoms slowly improving Continue DuoNeb breathing treatment, O2 via nasal cannula, Solu-Medrol IV Patient is currently off BiPAP, will continue empiric Levaquin Chest x-ray - minimal irregular opacity over the right apex EKG - sinus rhythm with no acute ST-T changes ABG - reviewed Urine culture - Escherichia coli Palliative care following - appreciate input Cardiac Telemetry, labs in a.m., monitor closely 04/30 - patient required BiPAP last night due to prolonged apneic spells, currently on O2 via nasal cannula, currently at baseline mental status 05/01 - patient is now doing well on O2 via nasal cannula. She has qualified for BiPAP at home. Her mental status seems to be baseline and seems to have improved since yesterday. Anticipate discharge soon. 05/02 - patient was on BiPAP last night. Doing well on O2 via NC. At baseline mental status at this time. Poor appetite. [facility]. Palliative care following. Qualifiers: Respiratory failure complication: hypoxia and hypercapnia Qualified Code(s) : J96.21 - Acute and chronic respiratory failure with hypoxia; J96.22 - Acute and chronic respiratory failure with hypercapnia; J96.22 - Acute and chronic respiratory failure with hypercapnia; J96.22 - Acute and chronic respiratory failure with hypercapnia (2) Acute on chronic renal failure Current Visit: Yes Status: Acute Assessment and plan: Acute kidney injury on chronic kidney disease stage III - likely secondary to poor oral intake, dehydration - now improved Continue IV fluids, labs in a.m. 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 Visit: Yes Status: Chronic Assessment and plan: Moderate to severe dementia, bedbound, patient does not verbalize well - without behavioral disturbances Swallow study - no evidence of aspiration - continue honey thickened liquids and pureed diet Palliative care following Qualifiers: Dementia behavioral disturbance: without behavioral disturbance Qualified Code(s): G20 - Parkinson's disease; F02.80 - Dementia in other diseases classified elsewhere without behavioral disturbance; F02.80 - Dementia in other diseases classified elsewhere without behavioral disturbance; F02.80 - Dementia in other diseases classified elsewhere without behavioral disturbance (5) DVT prophylaxis Current Visit: Yes Status: Acute Assessment and plan: Continue Heparin subcutaneous - Time Spent With Patient 25 - 35 minutes - Subjective Interval history: Examined this afternoon. Patient is awake and she continues to be confused. Not in any distress. Tolerating oral diet. She is unable to provide any history due to medical condition and due to dementia. Patient was on BiPAP last night, currently doing well on nasal cannula. No fever. Hemodynamically stable. Swallow study does not show any evidence of aspiration. Patient does qualify for BiPAP at home. She has a poor appetite. No other acute events or complaints. Patient is a DNR comfort care arrest DNI status. Palliative care following. Anticipate discharge [facility] tomorrow. - Constitutional Vitals: Temp Pulse Resp BP Pulse Ox 97.9 F 102 18 128/65 97 05/02/17 16:03 05/02/17 16:03 05/02/17 16:03 05/02/17 16:03 05/02/17 16:03 General appearance: Present: A&O X 0, no acute distress Exam: Chronically ill-appearing, frail, generalized weakness, unable to provide history due to medical condition, moderate to severe dementia - Head Head exam: Present: atraumatic - Eye Eye exam: Present: EOMI - ENT ENT exam: Present: mucous membranes dry - Respiratory Respiratory exam: Present: wheezes (Mild bibasilar, otherwise clear to auscultation). Absent: accessory muscle use, chest wall tenderness, rales, rhonchi, tachypnea - Cardiovascular Cardiovascular exam: Present: RRR, +S1, +S2 - GI/Abdominal GI/Abdominal exam: Present: soft. Absent: distended, firm, guarding, tenderness - Extremities Exam Extremities exam: Present: radial pulses palpable and symmetrical. Absent: calf tenderness, cyanotic, pedal edema - Neurological Exam Additional comments: Patient is awake, but is confused. She does have moderate to severe dementia. Trying to verbalize. Patient does not verbalize well, does not follow commands well, opens eyes spontaneously, eye tracking to vocal stimuli, able to withdraw to pain. Withdraws to painful stimuli. Internal Medicine: Result - Labs CBC & Chem 7: 04/29/17 07:15 05/02/17 03:25 Labs: BMP 05/02/17 03:25 Sodium 146 H Potassium 4.1 Chloride 108 Carbon Dioxide 32 H BUN 38 H Creatinine 0.97 Glucose 209 H Calcium 8.9 - ABG Interpretation ABG results: ABG ABG pH 7.32 pH Units (7.32-7.45) 04/29/17 06:08 ABG pCO2 60 mmHg (35-45) H 04/29/17 06:08 ABG pO2 96 mmHg (85-104) 04/29/17 06:08 ABG O2 Saturation 97 % (95-98) 04/29/17 06:08 Consult Discharge Plan - Plan Referrals: Virgilio Delcid Jr, MD [Primary Care Provider] - (Web request sent on 05/01/17)
[2017-05-03] MEDS: dilTIAZem HCl 60 MG TABLET PO SCH ×4 (00:26→22:36)
[2017-05-03] MEDS: Ipratropium/Albuterol Neb 3 ML IH SCH ×6 (05:31→23:33)
[2017-05-03] MEDS: *HR* Heparin 5,000 UNIT/ML VIAL SQ SCH ×2 (06:19→17:22)
[2017-05-03] MEDS: 0.9 % Sodium Chloride 1,000 ML IVC SCH ×2 (06:23→22:48)
[2017-05-03] MEDS ORDERED: Levofloxacin 750 MG/150 ML 750 MG/150 ML BAG IVPB SCH (09:00)
[2017-05-03] MEDS: MethylPREDNISolone 40 MG/ML VIAL IVP SCH ×2 (09:30→22:44)
[2017-05-03] MEDS: Carbidopa/Levodopa 25/100 TABLET PO SCH ×3 (09:30→22:37)
[2017-05-03] MEDS: cefTRIAXone 1,000 MG in Water for inj. (sterile) 10 ML IVP SCH (09:30)
[2017-05-03] MEDS: Aspirin Enteric Coated 81 MG Tablet PO SCH (09:30)
--- NOTE | 2017-05-03 14:51 | Internal Med Progress Note ---
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 She has qualified for BiPAP at home. Her mental status seems to be baseline and seems to have improved since yesterday. Anticipate discharge soon. 05/02 - patient was on BiPAP last night. Doing well on O2 via NC. At baseline mental status at this time. Poor appetite. Anticipate discharge to [facility] tomorrow. Palliative care following. 05/03 - no acute events. Tolerating honey thickened liquids and pureed diet. Anticipate discharge to [facility] soon. Patient does qualify for BiPAP due to end- stage COPD. Settings 05/30 with FiO2 40%. Qualifiers: Respiratory failure complication: hypoxia and hypercapnia Qualified Code(s) : J96.21 - Acute and chronic respiratory failure with hypoxia; J96.22 - Acute and chronic respiratory failure with hypercapnia; J96.22 - Acute and chronic respiratory failure with hypercapnia; J96.22 - Acute and chronic respiratory failure with hypercapnia (2) Acute on chronic renal failure Current Visit: Yes Status: Acute Assessment and plan: Acute kidney injury on chronic kidney disease stage III - likely secondary to poor oral intake, dehydration - now improved Continue IV fluids, labs in a.m. 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 Visit: Yes Status: Chronic Assessment and plan: Moderate to severe dementia, bedbound, patient does not verbalize well - without behavioral disturbances Swallow study - no evidence of aspiration - continue honey thickened liquids and pureed diet Palliative care following Qualifiers: Dementia behavioral disturbance: without behavioral disturbance Qualified Code(s): G20 - Parkinson's disease; F02.80 - Dementia in other diseases classified elsewhere without behavioral disturbance; F02.80 - Dementia in other diseases classified elsewhere without behavioral disturbance; F02.80 - Dementia in other diseases classified elsewhere without behavioral disturbance (5) DVT prophylaxis Current Visit: Yes Status: Acute Assessment and plan: Continue Heparin subcutaneous - Time Spent With Patient 25 - 35 minutes - Subjective Interval history: Examined this afternoon. Patient is awake. Not in any distress. Tolerating oral diet. She is unable to provide any history due to medical condition and due to dementia. Patient continues to have confusion. Tolerating honey thickened liquids and pureed diet. Patient was on BiPAP last night, currently doing well on nasal cannula. No fever. Hemodynamically stable. Swallow study does not show any evidence of aspiration. Patient does qualify for BiPAP at home. She has a poor appetite. No other acute events or complaints. Patient is a DNR comfort care arrest DNI status. Palliative care following. Anticipate discharge to [facility] soon. - Constitutional Vitals: Temp Pulse Resp BP Pulse Ox 97.8 F 78 16 152/78 97 05/03/17 11:24 05/03/17 11:24 05/03/17 11:24 05/03/17 11:24 05/03/17 11:24 General appearance: Present: A&O X 0, no acute distress Exam: Chronically ill-appearing, frail, generalized weakness, unable to provide history due to medical condition, moderate to severe dementia - Head Head exam: Present: atraumatic - Eye Eye exam: Present: EOMI - ENT ENT exam: Present: mucous membranes moist - Respiratory Respiratory exam: Present: wheezes (Mild bibasilar, otherwise clear). Absent: accessory muscle use, chest wall tenderness, rales, respiratory distress, rhonchi, tachypnea - Cardiovascular Cardiovascular exam: Present: RRR, +S1, +S2 - GI/Abdominal GI/Abdominal exam: Present: soft. Absent: distended, firm, guarding, tenderness - Extremities Exam Extremities exam: Present: radial pulses palpable and symmetrical. Absent: calf tenderness, cyanotic, pedal edema - Neurological Exam Additional comments: Patient is awake, but is confused. She does have moderate to severe dementia. Trying to verbalize. Patient does not verbalize well, does not follow commands well, opens eyes spontaneously, eye tracking to vocal stimuli, able to withdraw to pain. Withdraws to painful stimuli. Patient seems to be at baseline mental status. Internal Medicine: Result - Labs CBC & Chem 7: 04/29/17 07:15 05/02/17 03:25 - ABG Interpretation ABG results: ABG ABG pH 7.32 pH Units (7.32-7.45) 04/29/17 06:08 ABG pCO2 60 mmHg (35-45) H 04/29/17 06:08 ABG pO2 96 mmHg (85-104) 04/29/17 06:08 ABG O2 Saturation 97 % (95-98) 04/29/17 06:08 Consult Discharge Plan - Plan Referrals: Virgilio Delcid Jr, MD [Primary Care Provider] - (Web request sent on 05/01/17)
[2017-05-03] MEDS ORDERED: Ipratropium/Albuterol Neb 3 ML IH SCH (20:00)
[2017-05-04] MEDS: Ipratropium/Albuterol Neb 3 ML IH SCH ×6 (04:28→23:15)
[2017-05-04] MEDS: *HR* Heparin 5,000 UNIT/ML VIAL SQ SCH ×2 (05:38→18:12)
[2017-05-04] MEDS: Aspirin Enteric Coated 81 MG Tablet PO SCH (08:56)
[2017-05-04] MEDS: MethylPREDNISolone 40 MG/ML VIAL IVP SCH ×2 (08:56→21:39)
[2017-05-04] MEDS: Carbidopa/Levodopa 25/100 TABLET PO SCH ×3 (08:56→21:39)
[2017-05-04] MEDS: cefTRIAXone 1,000 MG in Water for inj. (sterile) 10 ML IVP SCH (08:56)
[2017-05-04] MEDS: dilTIAZem HCl 60 MG TABLET PO SCH ×2 (08:56→15:22)
--- NOTE | 2017-05-04 14:18 | Discharge Summary ---
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 Doing well on O2 via NC. At baseline mental status at this time. Poor appetite. Anticipate discharge to ECF tomorrow. Palliative care following. 05/03 - no acute events. Tolerating honey thickened liquids and pureed diet. Anticipate discharge to ECF soon. Patient does qualify for BiPAP due to end- stage COPD. Settings 05/30 with FiO2 40%. - no new complaints or events. Anticipate discharge to ECF or home with [facility] tomorrow. Continue BiPAP at night, O2 via nasal cannula during daytime. Qualifiers: Respiratory failure complication: hypoxia and hypercapnia Qualified Code(s) : J96.21 - Acute and chronic respiratory failure with hypoxia; J96.22 - Acute and chronic respiratory failure with hypercapnia; J96.22 - Acute and chronic respiratory failure with hypercapnia; J96.22 - Acute and chronic respiratory failure with hypercapnia (2) Acute on chronic renal failure Priority: Primary Status: Acute Comments: Acute kidney injury on chronic kidney disease stage III - likely secondary to poor oral intake, dehydration - now improved Hyperkalemia has improved Qualifiers: Acute renal failure type: unspecified Chronic kidney disease stage: stage 3 (moderate) Qualified Code(s): N17.9 - Acute kidney failure, unspecified; N18.3 - Chronic kidney disease, stage 3 (moderate); N18.3 - Chronic kidney disease, stage 3 (moderate) (3) Parkinson disease Priority: Primary Status: Chronic Comments: Continue home dose of Sinemet (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 Priority: Primary Status: Chronic Comments: Moderate to severe dementia, bedbound, patient does not verbalize well - without behavioral disturbances Swallow study - no evidence of aspiration - continue honey thickened liquids and pureed diet Palliative care following Qualifiers: Dementia behavioral disturbance: without behavioral disturbance Qualified Code(s): G20 - Parkinson's disease; F02.80 - Dementia in other diseases classified elsewhere without behavioral disturbance; F02.80 - Dementia in other diseases classified elsewhere without behavioral disturbance; F02.80 - Dementia in other diseases classified elsewhere without behavioral disturbance (5) UTI (urinary tract infection) Priority: Primary Status: Acute Comments: Acute cystitis, UTI, present on admission - continue the Escherichia coli Cultures - Escherichia coli pansensitive IV Rocephin given in the hospital, discharged with Augmentin Qualifiers: Urinary tract infection type: acute cystitis Hematuria presence: without hematuria Qualified Code(s): N30.00 - Acute cystitis without hematuria - Discharge Medications Prescriptions: Amoxicillin/Clavulanate [Augmentin] 500 mg PO BIDWM 7 Days #14 tablet Carbidopa/Levodopa ER 50/200 [Sinemet ER 50-200 Tab] 1 each PO TID #30 tablet.er PredniSONE [Deltasone] 20 mg PO DAILY #5 tablet Quetiapine Fumarate [Seroquel] 12.5 mg PO HS #30 tablet Home Medications: Aspirin Enteric Coated [Aspirin EC] 81 mg PO DAILY #30 tablet.dr 03/08/15 [Rx] Calcitriol [Rocaltrol] 0.25 mcg PO DAILY #30 capsule 03/08/15 [Rx] Diltiazem HCl [Diltiazem ER] 180 mg PO DAILY 04/28/17 [History] Ipratropium/Albuterol Neb [Duoneb] 3 ml IH Q4H PRN 04/28/17 [History] Amoxicillin/Clavulanate [Augmentin] 500 mg PO BIDWM 7 Days #14 tablet 05/04/17 [ Rx] Carbidopa/Levodopa ER 50/200 [Sinemet ER 50-200 Tab] 1 each PO TID #30 tablet.er 05/04/17 [Rx] PredniSONE [Deltasone] 20 mg PO DAILY #5 tablet 05/04/17 [Rx] Quetiapine Fumarate [Seroquel] 12.5 mg PO HS #30 tablet 05/04/17 [Rx] Allergies/Adverse Reactions: 3 Allergy/AdvReac Type Severity Reaction Status Date / Time No Known Allergies Allergy Verified 02/25/15 19:57 Date of admission: 04/29/17 06:22 Primary care physician: Virgilio Delcid Jr, MD Consults: 04/29/17 06:23 Consult to Palliative Care [CONS] Routine Comment: Consulting Provider: Palliative Care Haley Reason for Consult: goals of care; end of life discussions Call Completed: No 04/29/17 09:34 Consult to Speech Therapy [CONS] Routine Comment: Evaluate, develop and implement POC Reason for Consult: Per family report, pt has been coughing and choking easily on foods Call Completed: No 04/29/17 15:05 Consult to Physical Therapy [CONS] Routine Comment: Evaluate, develop and implement POC Reason for Consult: eval and treat 04/29/17 15:06 Consult to Occupational Therapy [CONS] Routine Comment: Evaluate, develop and implement POC Reason for Consult: eval and treat Anticipated date of discharge: 05/05/17 - Patient Status Disposition: Home Health Service Condition: Fair Functional capacity at discharge: bed bound Overall status at discharge: patient is progressing back to baseline - Discharge Instructions Follow Up With: Virgilio Delcid Jr, MD [Primary Care Provider] - (Web request sent on 05/01/17) - Diet and Activity Activity: as per physical therapy, wear oxygen at all times Diet: other (Honey thickened liquids, pureed diet with aspiration precautions) Hospital course: Ms. Jesus is a 82 year old female with past medical history of COPD, Parkinson disease and dementia. Patient presented to the ED with complaints of shortness of breath. Unable to obtain history from patient due to dementia and she does not verbalize well. Patient is currently visiting from [place], where she is at a long-term facility. Patient is on supplemental O2 via nasal cannula. Patient is admitted for acute on chronic respiratory failure and COPD exacerbation with hypercapnic acidosis. Patient also had mild acute kidney injury. Patient was started on DuoNeb breathing treatment, O2 via nasal cannula and IV Solu-Medrol. She was also initially on BiPAP and empiric IV antibiotics. Chest x-ray showed irregular opacity with a right apex. EKG shows sinus rhythm. Acute kidney injury was likely due to poor oral intake and dehydration. Patient was continued on home dose of Sinemet. Speech therapy has evaluated the patient and there was no evidence of aspiration. Palliative care was consulted. Patient is a DO NOT RESUSCITATE and DO NOT INTUBATE status. I have discussed with the patient's daughter regarding patient's poor overall prognosis due to end-stage COPD. She understood and agreed. Palliative care has been following. Patient does qualify for BiPAP at home. She will need to use it at night at least. Patient is currently tolerating oral diet well. She is at baseline mental status. She is mostly bedbound. Unable to provide any history. Currently doing well on 2 L via nasal cannula. She does require BiPAP at night. Again patient has a poor overall prognosis due to end-stage COPD and due to advanced dementia. Initial plan was discharged to [facility], but family wants to take patient home. No other acute events or complications. - Time Spent with Patient Total time spent providing and/or coordinating discharge services: Greater than 30 minutes - Constitutional Vitals: Temp Pulse Resp BP Pulse Ox 97.7 F 91 16 144/78 93 05/04/17 07:23 05/04/17 07:23 05/04/17 07:23 05/04/17 07:23 05/04/17 09:15 General appearance: Present: A&O X 0, no acute distress Exam: Chronically ill-appearing, frail, generalized weakness, unable to provide history due to medical condition, moderate to severe dementia - Head Head exam: Present: atraumatic - Eye Eye exam: Present: EOMI - ENT ENT exam: Present: mucous membranes moist - Respiratory Respiratory exam: Present: wheezes (Mild bibasilar, otherwise clear to auscultation). Absent: accessory muscle use, chest wall tenderness, rales, respiratory distress, rhonchi, tachypnea - Cardiovascular Cardiovascular exam: Present: RRR, +S1, +S2 - GI/Abdominal GI/Abdominal exam: Present: soft. Absent: distended, firm, guarding, tenderness - Extremities Exam Extremities exam: Present: radial pulses palpable and symmetrical. Absent: calf tenderness, cyanotic, pedal edema - Neurological Exam Neurological exam: Present: alert, oriented X3, no focal deficits. Absent: facial droop, speech deficit
--- NOTE | 2017-05-04 14:28 | Physician Discharge Referral ---
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 03/08/15 [Rx] Calcitriol [Rocaltrol] 0.25 mcg PO DAILY #30 capsule 03/08/15 [Rx] Diltiazem HCl [Diltiazem ER] 180 mg PO DAILY 04/28/17 [History] Ipratropium/Albuterol Neb [Duoneb] 3 ml IH Q4H PRN 04/28/17 [History] Amoxicillin/Clavulanate [Augmentin] 500 mg PO BIDWM 7 Days #14 tablet 05/04/17 [ Rx] Carbidopa/Levodopa ER 50/200 [Sinemet ER 50-200 Tab] 1 each PO TID #30 tablet.er 05/04/17 [Rx] PredniSONE [Deltasone] 20 mg PO DAILY #5 tablet 05/04/17 [Rx] Quetiapine Fumarate [Seroquel] 12.5 mg PO HS #30 tablet 05/04/17 [Rx] Allergies/Adverse Reactions: 3 Allergy/AdvReac Type Severity Reaction Status Date / Time No Known Allergies Allergy Verified 02/25/15 19:57 - Respiratory Orders Oxygen / L per min (2 L via nasal cannula, BiPAP at night. Settings 12/8 and FiO2 40%. Patient does require BiPAP due to end-stage COPD) Smoking Cessation: Smoking cessation has been advised. For more information, call the [place] Tobacco Quit Line at 0-565-RGIH-NOW. - Ancillary Orders May use pressure relief devices daily prn - Advance Directives Code Status: DNR-Arrest/Don't Intubate - Mobility Orders Bedrest - Rehabiliation Orders Rehab Orders: Evaluation for Physical Therapy, Evaluation for Occupational Therapy - Treatments Skin tear care topically daily PRN per policy - Diet Orders Pureed CERTIFICATION: I certify that the transfer of the above named patient to an Extended Care Facility is necessary for the continuing treatment of the diagnosis listed. The above information is true and accurate reflection of patient's current condition. Confidential - Redisclosure prohibited without a patient's written consent.
--- NOTE | 2017-05-04 14:46 | Physician Discharge Referral ---
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 Settings /8 and FiO2 40%. Patient requires BiPAP due to end-stage COPD.) Smoking Cessation: Smoking cessation has been advised. For more information, call the [place] Quit Line at 1-072-YYSS-NOW. - Diet/Nutrition Diet/Nutrition Orders: Pureed - Activity Activity Orders: Bedrest - Services Needed Following services are medically necessary services: Nursing, Home Health Aide, Physical Therapy, Occupational Therapy - Transfer Medications Prescriptions: Amoxicillin/Clavulanate [Augmentin] 500 mg PO BIDWM 7 Days #14 tablet Carbidopa/Levodopa ER 50/200 [Sinemet ER 50-200 Tab] 1 each PO TID #30 tablet.er PredniSONE [Deltasone] 20 mg PO DAILY #5 tablet Quetiapine Fumarate [Seroquel] 12.5 mg PO HS #30 tablet Home Medications: Aspirin Enteric Coated [Aspirin EC] 81 mg PO DAILY #30 tablet. 03/08/15 [Rx] Calcitriol [Rocaltrol] 0.25 mcg PO DAILY #30 capsule 03/08/15 [Rx] Diltiazem HCl [Diltiazem ER] 180 mg PO DAILY 04/28/17 [History] Ipratropium/Albuterol Neb [Duoneb] 3 ml IH Q4H PRN 04/28/17 [History] Amoxicillin/Clavulanate [Augmentin] 500 mg PO BIDWM 7 Days #14 tablet 05/04/17 [ Rx] Carbidopa/Levodopa ER 50/200 [Sinemet ER 50-200 Tab] 1 each PO TID #30 tablet.er 05/04/17 [Rx] PredniSONE [Deltasone] 20 mg PO DAILY #5 tablet 05/04/17 [Rx] Quetiapine Fumarate [Seroquel] 12.5 mg PO HS #30 tablet 05/04/17 [Rx] Allergies/Adverse Reactions: 3 Allergy/AdvReac Type Severity Reaction Status Date / Time No Known Allergies Allergy Verified 02/25/15 19:57 Certification: Further, I certify that my clinical findings support that this patient is homebound (i.e. absences from home require considerable and taxing effort and are for medical reasons or baptism services or infrequently or short duration when for other reasons) because: Homebound Reason: Patient requires assistance of a person or device to safely leave home, Severity of cardiac or pulmonary status limits activity tolerance Attestation: My signature below is to certify that this patient is under my care and that I, or nurse practitioner, or a physician's marketing assistant working with me, has a face-to -face encounter with this patient.
[2017-05-04] MEDS: 0.9 % Sodium Chloride 1,000 ML IVC SCH (15:10)
[2017-05-05] MEDS: dilTIAZem HCl 60 MG TABLET PO SCH ×3 (00:45→18:09)
[2017-05-05] MEDS: Ipratropium/Albuterol Neb 3 ML IH SCH ×5 (03:33→20:00)
[2017-05-05] MEDS: *HR* Heparin 5,000 UNIT/ML VIAL SQ SCH ×2 (06:39→18:09)
[2017-05-05 07:13] VITALS: BP 154/80
[2017-05-05] MEDS: cefTRIAXone 1,000 MG in Water for inj. (sterile) 10 ML IVP SCH (10:57)
[2017-05-05] MEDS: Carbidopa/Levodopa 25/100 TABLET PO SCH ×2 (10:57→18:09)
[2017-05-05] MEDS: MethylPREDNISolone 40 MG/ML VIAL IVP SCH (10:57)
[2017-05-05] MEDS: Aspirin Enteric Coated 81 MG Tablet PO SCH (10:57)
--- NOTE | 2017-05-05 12:11 | Internal Med Progress Note ---
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 Doing well on O2 via NC. At baseline mental status at this time. Poor appetite. Anticipate discharge to ECF tomorrow. Palliative care following. 05/03 - no acute events. Tolerating honey thickened liquids and pureed diet. Anticipate discharge to ECF soon. Patient does qualify for BiPAP due to end- stage COPD. Settings 05/30 with FiO2 40%. 05/05 - at baseline mental status. Stable for discharge home with home health services today. Family wants to take patient home. Continue BiPAP at home and O2 via nasal cannula. Follow-up with PCP. Return if symptoms worsen. Qualifiers: Respiratory failure complication: hypoxia and hypercapnia Qualified Code(s) : J96.21 - Acute and chronic respiratory failure with hypoxia; J96.22 - Acute and chronic respiratory failure with hypercapnia; J96.22 - Acute and chronic respiratory failure with hypercapnia; J96.22 - Acute and chronic respiratory failure with hypercapnia (2) Acute on chronic renal failure Current Visit: Yes Status: Acute Assessment and plan: Acute kidney injury on chronic kidney disease stage III - likely secondary to poor oral intake, dehydration - now improved Hyperkalemia has improved 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 Current Visit: Yes Status: Chronic Assessment and plan: Moderate to severe dementia, bedbound, patient does not verbalize well - without behavioral disturbances Swallow study - no evidence of aspiration - continue honey thickened liquids and pureed diet Palliative care following - appreciate input Qualifiers: Dementia behavioral disturbance: without behavioral disturbance Qualified Code(s): G20 - Parkinson's disease; F02.80 - Dementia in other diseases classified elsewhere without behavioral disturbance; F02.80 - Dementia in other diseases classified elsewhere without behavioral disturbance; F02.80 - Dementia in other diseases classified elsewhere without behavioral disturbance (5) UTI (urinary tract infection) Current Visit: Yes Status: Acute Assessment and plan: Acute cystitis, UTI, present on admission - continue the Escherichia coli Cultures - Escherichia coli pansensitive IV Rocephin given in the hospital, discharged with Augmentin Qualifiers: Urinary tract infection type: acute cystitis Hematuria presence: without hematuria Qualified Code(s): N30.00 - Acute cystitis without hematuria - Time Spent With Patient 25 - 35 minutes - Subjective Interval history: Examined this afternoon. Patient is awake. Not in any distress. Tolerating oral diet. She is unable to provide any history due to medical condition and due to dementia. Tolerating honey thickened liquids and pureed diet. At baseline mental status. Patient was on BiPAP last night, currently doing well on nasal cannula. No fever. Hemodynamically stable. Swallow study does not show any evidence of aspiration. Patient does qualify for BiPAP at home. No other acute events or complaints. Patient is a DNR comfort care arrest DNI status. Palliative care following. Patient seems to be at baseline mental status. Discharge home with home health services today. Stable for discharge. - Constitutional Vitals: Temp Pulse Resp BP Pulse Ox 98.2 F 98 18 154/80 100 05/05/17 07:09 05/05/17 07:09 05/05/17 11:33 05/05/17 07:09 05/05/17 11:33 General appearance: Present: A&O X 0, no acute distress Exam: Chronically ill-appearing, frail, generalized weakness, unable to provide history due to medical condition, moderate to severe dementia - Head Head exam: Present: atraumatic - Eye Eye exam: Present: EOMI - ENT ENT exam: Present: mucous membranes moist - Respiratory Respiratory exam: Present: CTAB. Absent: accessory muscle use, chest wall tenderness, rales, respiratory distress, rhonchi, wheezes, tachypnea - Cardiovascular Cardiovascular exam: Present: RRR, +S1, +S2 - GI/Abdominal GI/Abdominal exam: Present: soft. Absent: distended, firm, guarding, tenderness - Extremities Exam Extremities exam: Present: radial pulses palpable and symmetrical. Absent: calf tenderness, cyanotic, pedal edema - Neurological Exam Additional comments: Patient is awake, but is confused. She does have moderate to severe dementia. Trying to verbalize. Patient does not verbalize well, does not follow commands well, opens eyes spontaneously, eye tracking to vocal stimuli, able to withdraw to pain. Withdraws to painful stimuli. Patient seems to be at baseline mental status at this time. Internal Medicine: Result - Labs CBC & Chem 7: 04/29/17 07:15 05/02/17 03:25 - ABG Interpretation ABG results: ABG ABG pH 7.32 pH Units (7.32-7.45) 04/29/17 06:08 ABG pCO2 60 mmHg (35-45) H 04/29/17 06:08 ABG pO2 96 mmHg (85-104) 04/29/17 06:08 ABG O2 Saturation 97 % (95-98) 04/29/17 06:08 Consult Discharge Plan - Plan Referrals: Virgilio Delcid Jr, MD [Primary Care Provider] - 05/07/17 2:00 pm (Web request sent on 05/01/17) Prescriptions: Amoxicillin/Clavulanate [Augmentin] 500 mg PO BIDWM 7 Days #14 tablet Carbidopa/Levodopa ER 50/200 [Sinemet ER 50-200 Tab] 1 each PO TID #30 tablet.er PredniSONE [Deltasone] 20 mg PO DAILY #5 tablet Quetiapine Fumarate [Seroquel] 12.5 mg PO HS #30 tablet
[2017-05-05] MEDS: 0.9 % Sodium Chloride 1,000 ML IVC SCH (12:33)
[2017-05-05] MEDS: FLUARIX QUAD 2017-18 36MOS UP/PF 0.5 ML SYRINGE IM ONE ×2 (20:14→20:18)
== END 2017-05-05 23:06 | disposition home health service (06) | DRG 189 ==
LOC: EMEROO 17:52 → 2ANU 17:52
PROVIDERS: ADMIT Pediatrics; ATTEND Internal Medicine

== ENCOUNTER 2017-05-07 14:56 | Inpatient (IN) ==
[2017-05-07] MEDS ORDERED: 0.9 % Sodium Chloride 500 ML IVC ONE (16:39)
[2017-05-07 17:10] LABS: Basophils % 0.2 %; Eosinophils % 0.3 %; Hematocrit 40.8 % (35.3-44.9); Hemoglobin 12.9 g/dL (11.5-15.4); Immature Granulocytes % 1.9 % (0-4); Immature Platelets 5.3 % (1.1-6.1); Lymphocytes # 1.1 K/mcL (0.6-4.6); Lymphocytes % 10.6 %; Mean Corpuscular HGB Conc 31.6 g/dL (31.6-35.5); Mean Corpuscular Hemoglobin 29.9 pg (28.0-33.3); Mean Corpuscular Volume 94.4 fL (83.0-100.0); Monocytes # 0.7 K/mcL (0.0-1.3); Monocytes % 6.5 %; Neutrophils # 8.2 K/mcL (1.6-8.9); Platelet Count 151 K/mcL (140-400); Red Blood Count 4.32 M/mcL (3.82-4.97); Red Cell Distribution Width 15.1 % (11.5-14.5); Segmented Neutrophils % 80.5 %
--- NOTE | 2017-05-07 17:11 | Emergency Department Note ---
Disposition Clinical Impression: SOB (shortness of breath), BiPAP (biphasic positive airway pressure) dependence , Pleural effusion Altered mental status Qualifiers: Altered mental status type: unspecified Qualified Code(s): R41.82 - Altered mental status, unspecified Respiratory failure Qualifiers: Chronicity: acute on chronic Respiratory failure complication: unspecified whether with hypoxia or hypercapnia Qualified Code(s): J96.20 - Acute and chronic respiratory failure, unspecified whether with hypoxia or hypercapnia Disposition: Admitted As Inpatient Condition: Fair Altered Mental Status HPI - General Chief Complaint: ED Shortness of Breath/Dyspnea Stated Complaint: AMS Time Seen by Provider: 05/07/17 15:02 Source: patient, family Mode of arrival: EMS Limitations: altered mental status Nursing Notes Reviewed: Yes Vital Signs Reviewed: Yes - History of Present Illness HPI Narrative: 82-year-old female presents to the emergency department with concern by family members that she is having worsening mental status as well as issues with her breathing. They state that the patient is gargling with her mouth open. They report no fever, cough, hemoptysis. - Related Data Home Medications Medication Instructions Recorded Confirmed Diltiazem HCl [Diltiazem ER] 180 mg PO DAILY 04/28/17 05/07/17 PredniSONE [Deltasone] See Taper PO DAILY 05/07/17 05/07/17 Previous Rx's Medication Instructions Recorded Aspirin Enteric Coated [Aspirin EC] 81 mg PO DAILY #30 tablet. 03/08/15 Calcitriol [Rocaltrol] 0.25 mcg PO DAILY #30 capsule 03/08/15 Amoxicillin/Clavulanate [Augmentin] 500 mg PO BIDWM 7 Days #14 tablet 05/04/17 Carbidopa/Levodopa ER 50/200 1 each PO TID #30 tablet.er 05/04/17 [Sinemet ER 50-200 Tab] Quetiapine Fumarate [Seroquel] 12.5 mg PO HS #30 tablet 05/04/17 Ipratropium/Albuterol Neb [Duoneb] 3 ml IH [id number] PRN #30 inhsol 05/05/17 Allergies Allergy/AdvReac Type Severity Reaction Status Date / Time No Known Allergies Allergy Verified 02/25/15 19:57 All systems ED: reviewed and negative except as stated. Review of Systems: As Per HPI Constitutional: Denies: fever Cardiovascular: Denies: chest pain Respiratory: Reports: dyspnea. Denies: cough Gastrointestinal: Denies: abdominal pain, nausea, vomiting Past Medical History - Past Medical History Attestation: Yes The following information was validated with the patient. Source: patient, obtained from family Medical history: Reports: COPD, dementia, other Surgical history: Reports: hysterectomy, other (neck surgery) Psychiatric history: Reports: no psych history [employer] history: Reports: non-contributory - Social History Smoking Status: Heavy tobacco smoker Smokeless Tobacco Status: No Alcohol use: Reports: none Drug use: Reports: none Physical Exam General: Frail appearing 82-year-old female who is lying down, gargling breath sounds, not really speaking a lot. Head: autraumatic, EOMI, no conjuncitval pallor, no scleral icterus, Mouth: oral mucous membranes moist Neck: neck soft, trachea midline Chest:: Equal chest wall rise Lungs: Rales throughout Heart: normal heart sounds, normal rate and rhythm, Abdomen: soft, non-tender, no rigidity, no guarding, no rebdound tenderness Lower Extremities: no pedal edema, calves non-tender Integumentary: Skin warm, dry, and intact, poor capillary refill Psych: normal affect, normal mood - General General appearance: alert, in distress Course Vital Signs Temperature 97.5 F L 05/07/17 15:01 Pulse Rate 98 05/07/17 15:01 Respiratory Rate 28 05/07/17 15:01 Blood Pressure 135/92 05/07/17 15:01 O2 Sat by Pulse Oximetry 94 05/07/17 15:01 Temperature 97.5 F L 05/07/17 19:31 Pulse Rate 81 05/07/17 19:31 Respiratory Rate 16 05/07/17 19:31 Blood Pressure 143/83 05/07/17 19:31 O2 Sat by Pulse Oximetry 95 05/07/17 19:31 Oxygen Delivery Oxygen Delivery Bipap Altered Mental Status - MDM Narrative Medical decision making narrative: 82-year-old female presents to the emergency department with concern for altered mental status and possible pneumonia. Patient was recently admitted in the hospital. On exam, patient was gurgling and appeared to be very altered. Her lactic acid, blood cultures, CBC, BMP. Chest x-ray revealed bilateral pleural effusions. We gave the patient BiPAP and this helped out her mental status as she was able to speak a lot more appropriately after administration of the BiPAP. Urinalysis was attempted, but only a small amount of urine sample was obtained. We were not able to complete a urinalysis. EKG did not reveal any ischemic changes. I spoke with the hospitalist about admitting the patient she agreed to accept the patient as this patient requires BiPAP. I spoke with the family and patient bedside and they agreed to be admitted. As I cannot find any source of infection at this time, we will not start any antimicrobials. Also, with the patient's pleural effusions, I did not initiate loop diuretic therapy as the patient appears to be really dry and had poor capillary refill. Fluid balance in this elderly patient will be tenuous upon her admission. This is an 82-year-old female who appears to be on the decline and in poor condition. There is a DNR/DNI, CCA already in place. Chest X-Ray 05/07/17 15:13 IMPRESSION: New trace bilateral pleural effusions. Previously seen questionable nodular opacity in the right apex is unable to be evaluated due to overlying tubing. Follow-up recommended once the patient's acute illness has resolved. D/ / Lin East MD / Lin East MD Interpreting Provider: Lin East MD Vital Signs Temperature 97.5 F L 05/07/17 15:01 Pulse Rate 98 05/07/17 15:01 Respiratory Rate 28 05/07/17 15:01 Blood Pressure 135/92 05/07/17 15:01 O2 Sat by Pulse Oximetry 94 05/07/17 15:01 Temperature 97.5 F L 05/07/17 15:01 Pulse Rate 98 05/07/17 15:01 Respiratory Rate 18 05/07/17 18:00 Blood Pressure 135/90 05/07/17 18:00 O2 Sat by Pulse Oximetry 97 05/07/17 15:25 Oxygen Delivery Oxygen Delivery Bipap - Medical Records Medical records reviewed: Yes I reviewed the patient's medical records. - Lab Data Lab results reviewed: Yes I reviewed the patient's lab results. Result diagrams: 05/07/17 17:03 05/07/17 17:03 Lab Results 05/07/17 05/07/17 05/07/17 Range/Units 17:03 17:03 17:03 WBC 10.2 (4.3-11.1) K/mcL RBC 4.32 (3.82-4.97) M/mcL Hgb 12.9 (11.5-15.4) g/dL Hct 40.8 (35.3-44.9) % MCV 94.4 (83.0-100.0) fL MCH 29.9 (28.0-33.3) pg MCHC 31.6 (31.6-35.5) g/dL RDW 15.1 H (11.5-14.5) % Plt Count 151 (140-400) K/mcL MPV 11.0 (9.4-12.4) fL Immature Gran % 1.9 (0-4) % Seg Neutrophils % 80.5 % Lymphocytes % 10.6 % Monocytes % 6.5 % Eosinophils % 0.3 % Basophils % 0.2 % Neutrophils # 8.2 (1.6-8.9) K/mcL Lymphocytes # 1.1 (0.6-4.6) K/mcL Monocytes # 0.7 (0.0-1.3) K/mcL Eosinophils # 0.0 (0.0-0.6) K/mcL Basophils # 0.0 (0.0-0.2) K/mcL Immature Plt Fraction 5.3 (1.1-6.1) % Sodium 143 (136-145) mEq/L Potassium 4.0 (3.5-4.5) mEq/L Chloride 104 (98-109) mEq/L Carbon Dioxide 34 H (19-29) mEq/L BUN 37 H (7-20) mg/dL Creatinine 0.80 (0.57-1.11) mg/dL Est GFR ( Amer) > 60 (> 60) Est GFR (Non-Af Amer) > 60 (> 60) BUN/Creatinine Ratio 46 H (6-26) Glucose 81 (70-99) mg/dL Calculated Osmolality 304 H (280-300) Lactic Acid 1.0 (0.5-2.2) mmol/L Calcium 8.5 L (8.6-10.8) mg/dL Troponin I (0-0.03) ng/mL B-Natriuretic Peptide (0-100) pg/mL 05/07/17 05/07/17 Range/Units 17:03 17:03 WBC (4.3-11.1) K/mcL RBC (3.82-4.97) M/mcL Hgb (11.5-15.4) g/dL Hct (35.3-44.9) % MCV (83.0-100.0) fL MCH (28.0-33.3) pg MCHC (31.6-35.5) g/dL RDW (11.5-14.5) % Plt Count (140-400) K/mcL MPV (9.4-12.4) fL Immature Gran % (0-4) % Seg Neutrophils % % Lymphocytes % % Monocytes % % Eosinophils % % Basophils % % Neutrophils # (1.6-8.9) K/mcL Lymphocytes # (0.6-4.6) K/mcL Monocytes # (0.0-1.3) K/mcL Eosinophils # (0.0-0.6) K/mcL Basophils # (0.0-0.2) K/mcL Immature Plt Fraction (1.1-6.1) % Sodium (136-145) mEq/L Potassium (3.5-4.5) mEq/L Chloride (98-109) mEq/L Carbon Dioxide (19-29) mEq/L BUN (7-20) mg/dL Creatinine (0.57-1.11) mg/dL Est GFR ( Amer) (> 60) Est GFR (Non-Af Amer) (> 60) BUN/Creatinine Ratio (6-26) Glucose (70-99) mg/dL Calculated Osmolality (280-300) Lactic Acid (0.5-2.2) mmol/L Calcium (8.6-10.8) mg/dL Troponin I 0.03 (0-0.03) ng/mL B-Natriuretic Peptide 89 (0-100) pg/mL - EKG Data EKG attestation: Yes I reviewed and interpreted this EKG. EKG results narrative: 15:44 Ventricular rate 94 bpm, by mouth 172 ms, QRS duration 80 ms, QT 341 ms, QTC 393 ms, normal axis. Sinus rhythm with occasional PVCs. Ventricular rate is 94 bpm. There are no new changes from a previous electrocardiogram performed on April 28, 2017. Attestation Statement - Attestation Attestation: I, Quan Thacker, examined this patient and my medical decision-making was reviewed with the NEWSPAPER DELIVERY COUNSELOR/PA/Advanced Practice Nurse/Resident Physician. I agree with the documented findings, disposition and treatment plan as described except to the extent set forth below. 82-year-old female presents to emergency Department with concerns of increased shortness of breath and difficulty breathing. Family states patient was recently admitted for similar symptoms and discharged within the past week. Family denies new onset fever however patient has altered mental status and has difficulty answering questions regarding her case and presentation. On physical exam the patient has crackles in the bilateral posterior lung wick. Patient was placed on BiPAP with significant improvement of her symptoms patient is comfortable to be admitted to the hospital for further care and evaluation.
[2017-05-07 17:22] LABS: BUN/Creatinine Ratio 46 (6-26); Blood Urea Nitrogen 37 mg/dL (7-20); Calcium 8.5 mg/dL (8.6-10.8); Carbon Dioxide 34 mEq/L (19-29); Chloride 104 mEq/L (98-109); Glucose 81 mg/dL (70-99); Osmolality,Calculated 304 (280-300); Sodium 143 mEq/L (136-145); eGFR For African Americans > 60 (> 60); eGFR For Non-African Americans > 60 (> 60)
[2017-05-07] MEDS ORDERED: Naloxone 0.4 MG/ML INJ IVP PRN (19:35)
[2017-05-07] MEDS ORDERED: Ondansetron 4 MG/2 ML VIAL IVP PRN (19:35)
[2017-05-07] MEDS ORDERED: MOM Conc 10 ML UD.LIQ PO PRN (19:35)
[2017-05-07] MEDS ORDERED: Mag Hydrox/Al Hydrox/Simeth 30 ML UDC PO PRN (19:35)
[2017-05-07] MEDS: *HR* Heparin 5,000 UNIT/ML VIAL SQ SCH (22:39)
[2017-05-07] MEDS: Carbidopa/Levodopa ER 50/200 TABLET PO SCH (22:39)
--- NOTE | 2017-05-07 23:24 | Internal Med History&Physical ---
Date of Encounter: 05/07/17 Time of Encounter: 17:45 Assessment and Plan (1) Acute and chronic respiratory failure ([id number]) Current visit: No Status: Acute Pt just recently discharged with similar diagnosis. Will continue bipap as needed and supportive care. No intubation. Will ask palliative to reeval patient for continued support. 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 Will continue aerosols, oxygen, bipap and comfort measures (3) Parkinson disease Current visit: No Status: Chronic Continue home meds. 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: No Status: Chronic Chronic issue Qualifiers: Dementia behavioral disturbance: without behavioral disturbance Qualified Code(s): G20 - Parkinson's disease; F02.80 - Dementia in other diseases classified elsewhere without behavioral disturbance; F02.80 - Dementia in other diseases classified elsewhere without behavioral disturbance; F02.80 - Dementia in other diseases classified elsewhere without behavioral disturbance (5) Tobacco abuse Current visit: No Status: Chronic Cessation counselling Internal Medicine - H&P: HPI Chief complaint: Shortness of breath Admitted From: Emergency Dept Plans for Post Hospital Care: Home History of present illness: Ms. Jesus is a 82 year old female just recently discharged from [facility] brought back to hospital for difficulty breathing and confusion. Pt was more somnolent on arrival and was placed on bipap with some improvement. Family at bedside and were asking about whether she would need this all the time now. Pt unable to give history and just wanted to eat something. Family did agree that she is to remain DNR/DNI. Upon my arrival pt was on bipap. She was alert and responsive but had difficulty answering questions. She is currently high risk due to need for respiratory support and potential for worsening respiratory status. Past Med Surg Social Fam HX - Past Medical History Medical history: COPD, dementia, other Psychiatric history: no psych history - Past Surgical History Surgical History: hysterectomy, other (neck surgery) - Social History Smoking Status: Heavy tobacco smoker Smokeless Tobacco Status: No Alcohol use: none Drug use: none - Family History Father Adopted: No Living Status: Hx Family Cardiac Disorders: Yes Hx Family Respiratory Disorders: No Hx Family Cancer: No Hx Family GI Disorders: No Hx Family Endocrine Disorder: Yes Hx Family Neuromuscular Disorders: No Hx Family Neurologic Disorders: No Hx Family HEENT Disorders: No Hx Family Autoimmune Disorders: No Internal Medicine - H&P: Meds Aspirin Enteric Coated [Aspirin EC] 81 mg PO DAILY #30 tablet.dr 03/08/15 [Rx] Calcitriol [Rocaltrol] 0.25 mcg PO DAILY #30 capsule 03/08/15 [Rx] Diltiazem HCl [Diltiazem ER] 180 mg PO DAILY 04/28/17 [History] Amoxicillin/Clavulanate [Augmentin] 500 mg PO BIDWM 7 Days #14 tablet 05/04/17 [ Rx] Carbidopa/Levodopa ER 50/200 [Sinemet ER 50-200 Tab] 1 each PO TID #30 tablet.er 05/04/17 [Rx] Quetiapine Fumarate [Seroquel] 12.5 mg PO HS #30 tablet 05/04/17 [Rx] Ipratropium/Albuterol Neb [Duoneb] 3 ml IH [id number] PRN #30 inhsol 05/05/17 [Rx] PredniSONE [Deltasone] See Taper PO DAILY 05/07/17 [History] 3 Allergy/AdvReac Type Severity Reaction Status Date / Time No Known Allergies Allergy Verified 02/25/15 19:57 ROS unobtainable: due to mental status, other (bipap in place) All Systems PM: A 10-system review of systems was performed and is negative for pertinent findings except as documented above in the HPI. - Constitutional Constitutional: lethargy - EENT Eyes: no loss of vision Ears: no decreased hearing Nose, mouth and throat: dry mouth - Cardiovascular Cardiovascular ROS IM: dyspnea, no irregular heart rhythm - Respiratory Respiratory: dyspnea, dyspnea on exertion, wheezing - Gastrointestinal Gastrointestinal: no constipation, no diarrhea, no melena - Genitourinary Genitourinary: no urinary frequency - Musculoskeletal Musculoskeletal ROS IM: arthralgias - Integumentary Integumentary IM: no erythema, no rash - Neurological Neurological ROS: as per HPI - Endocrine Endocrine IM: no cold intolerance, no heat intolerance - Hematologic/Lymphatic Hematologic/Lymphatic: no easy bleeding - Allergic/Immunologic Allergic/Immunologic: no throat swelling - Constitutional Vitals: Temp Pulse Resp BP Pulse Ox 97.5 F L 81 16 143/83 95 05/07/17 19:31 05/07/17 19:31 05/07/17 19:31 05/07/17 19:31 05/07/17 19:31 General appearance: Present: cachectic, A&O X 2 Exam: Bipap in place - Head Head exam: Present: normocephalic - Eye Eye exam: Present: EOMI, conjuntiva pink - ENT ENT exam: Present: mucous membranes dry - Neck Neck exam general surgery: Absent: lymphadenopathy, thyromegaly - Respiratory Respiratory exam: Present: decreased breath sounds, rhonchi - Cardiovascular Cardiovascular exam: Present: distant heart sounds. Absent: tachycardia - GI/Abdominal GI/Abdominal exam: Present: normal bowel sounds, soft - Extremities Exam Extremities exam: Present: warm. Absent: pedal edema, tenderness - Neurological Exam Neurological exam: Present: alert, no focal deficits - Skin Skin exam: Present: dry, warm Internal Med - H&P Results - Labs CBC & Chem 7: 05/07/17 17:03 05/07/17 17:03
[2017-05-07] MEDS ORDERED: Ipratropium/Albuterol Neb 3 ML IH PRN (23:33)
[2017-05-08 08:28] LABS: Hemoglobin 11.6 g/dL (11.5-15.4)
[2017-05-08 08:30] LABS: Hematocrit 36.1 % (35.3-44.9); Mean Corpuscular HGB Conc 32.1 g/dL (31.6-35.5); Mean Corpuscular Hemoglobin 29.9 pg (28.0-33.3); Mean Platelet Volume 11.5 fL (9.4-12.4); Red Blood Count 3.88 M/mcL (3.82-4.97)
--- NOTE | 2017-05-08 08:35 | Palliative - Consult Note ---
<Rodrigo Vogt - Last Filed: 05/08/17 08:43> Date of Encounter: 05/08/17 Time of Encounter: 08:15 - Assessment and Plan (1) Acute and chronic respiratory failure ([id number]) Current Visit: No Status: Acute Assessment and plan: Patient initially presented to the hospital with difficulty breathing. -Currently on BiPAP; continue. -Supportive care: aerosols, oxygen, comfort measures. -No intubation; DNR/DNI. Qualifiers: Respiratory failure complication: hypoxia and hypercapnia Qualified Code(s) : J96.21 - Acute and chronic respiratory failure with hypoxia; J96.22 - Acute and chronic respiratory failure with hypercapnia; J96.22 - Acute and chronic respiratory failure with hypercapnia; J96.22 - Acute and chronic respiratory failure with hypercapnia (2) Altered mental status Current Visit: Yes Status: Acute Assessment and plan: Patient was not responsive this morning. -Appears to be very drowsy. Qualifiers: Altered mental status type: unspecified Qualified Code(s): R41.82 - Altered mental status, unspecified (3) Advanced care planning/counseling discussion Current Visit: Yes Status: Acute Assessment and plan: Family is not currently at bedside. -Patient's CODE STATUS is DNR/DNI. -Goal for today is to ask family members if they want to continue with home health. (4) Parkinson disease Current Visit: No Status: Chronic Assessment and plan: Continue home medication. Palliative-CN HPI - Data of Consult Requesting Physician: Mira Russo MD Primary Care Provider: Virgilio Delcid Jr, MD - Consult Narrative Palliative Care/Comfort Measures: Palliative care History of present illness: Ms. Jesus is a 82 year old female with a past medical history of COPD who presented to the emergency department with worsening mental status and difficulty breathing. Her family reported that she had been gargling with her mouth open. She was admitted with similar symptoms and discharged within the past week. In the ER, Patient had crackles bilaterally in posterior lung wick. Patient was placed on BiPAP. Her symptoms significantly improved. Patient was seen and examined at bedside this morning. She is currently unresponsive to stimuli. She is on bipap. Does not appear to be in any distress. Family members are not present at bedside. Goal for today is to ask family if they want to continue with home health. CC: Mira Russo MD Past Med Surg Social Fam HX - Past Medical History Medical history: COPD, dementia, other Psychiatric history: no psych history - Past Surgical History Surgical History: hysterectomy, other (neck surgery) - Social History Smoking Status: Heavy tobacco smoker Smokeless Tobacco Status: No Alcohol use: none Drug use: none - Family History Father Adopted: No Living Status: Hx Family Cardiac Disorders: Yes Hx Family Respiratory Disorders: No Hx Family Cancer: No Hx Family GI Disorders: No Hx Family Endocrine Disorder: Yes Hx Family Neuromuscular Disorders: No Hx Family Neurologic Disorders: No Hx Family HEENT Disorders: No Hx Family Autoimmune Disorders: No Medications and Allergies Aspirin Enteric Coated [Aspirin EC] 81 mg PO DAILY #30 tablet. 03/08/15 [Rx] Calcitriol [Rocaltrol] 0.25 mcg PO DAILY #30 capsule 03/08/15 [Rx] Diltiazem HCl [Diltiazem ER] 180 mg PO DAILY 04/28/17 [History] Amoxicillin/Clavulanate [Augmentin] 500 mg PO BIDWM 7 Days #14 tablet 05/04/17 [ Rx] Carbidopa/Levodopa ER 50/200 [Sinemet ER 50-200 Tab] 1 each PO TID #30 tablet.er 05/04/17 [Rx] Quetiapine Fumarate [Seroquel] 12.5 mg PO HS #30 tablet 05/04/17 [Rx] Ipratropium/Albuterol Neb [Duoneb] 3 ml IH [id number] PRN #30 inhsol 05/05/17 [Rx] PredniSONE [Deltasone] See Taper PO DAILY 05/07/17 [History] 3 Allergy/AdvReac Type Severity Reaction Status Date / Time No Known Allergies Allergy Verified 02/25/15 19:57 ROS unobtainable: due to mental status Palliative Care-Exam - Constitutional Vitals: Temp Pulse Resp BP Pulse Ox 97.5 F L 82 17 101/62 98 05/08/17 06:35 05/08/17 06:35 05/08/17 06:35 05/08/17 06:35 05/08/17 06:35 - Head Head Exam: Present: atraumatic, normal inspection, normocephalic - Neck Neck exam: Present: normal inspection - Respiratory Respiratory exam: Present: rales - Expanded Respiratory Exam Location: rales: Left, Right, Upper, Lower - Cardiovascular Cardiovascular exam: Present: RRR, +S1, +S2 - Psychiatric Psychiatric exam: Present: normal affect, normal mood - Skin Skin exam: Present: dry, intact Internal Medicine - CN: Reslt - Labs CBC & Chem 7: 05/08/17 07:57 05/07/17 17:03 Consult Discharge Plan - Plan Referrals: Virgilio Delcid Jr, MD [Primary Care Provider] - Palliative Quality Palliative Quality: Screen for Code Status: Yes, Screen for Goals of Care: Yes, Screen for Pain: Yes, If Pain Regimen Started, Initiate Bowel Regimen: No, Screen for Nausea/Vomitting: No Code Status: DNR/DNI <George Roper - Last Filed: 05/08/17 09:42> Date of Encounter: 05/08/17 Palliative-CN HPI - Data of Consult Requesting Physician: Mira Russo MD Primary Care Provider: Virgilio Delcid Jr, MD - Consult Narrative History of present illness: Ms. Jesus is a 82 year old female CC: Mira Russo MD Palliative Care-Exam - Constitutional Vitals: Temp Pulse Resp BP Pulse Ox 97.5 F L 82 17 101/62 98 05/08/17 06:35 05/08/17 06:35 05/08/17 06:35 05/08/17 06:35 05/08/17 06:35 Internal Medicine - CN: Reslt - Labs CBC & Chem 7: 05/08/17 07:57 05/08/17 07:57 Labs: Short CBC 05/08/17 Range/Units 07:57 WBC 8.2 (4.3-11.1) K/mcL Hgb 11.6 (11.5-15.4) g/dL Hct 36.1 (35.3-44.9) % Plt Count 98 L (140-400) K/mcL BMP 05/08/17 07:57 Sodium 144 Potassium 4.6 H Chloride 109 Carbon Dioxide 30 H BUN 33 H Creatinine 0.69 Glucose 90 Calcium 8.0 L - Attending Attestation I examined this patient and my medical decision-making was reviewed with the Resident Physician. I agree with the documented findings, disposition and treatment plan as described except to the extent set forth below. Currently awaiting discussion with family. Other notes after we have a chance to talk to them. The patient does meet criteria for hospice, however as of last week patient and family did not wish to have it.
[2017-05-08 08:44] LABS: BUN/Creatinine Ratio 48 (6-26); Blood Urea Nitrogen 33 mg/dL (7-20); Carbon Dioxide 30 mEq/L (19-29); Chloride 109 mEq/L (98-109); Glucose 90 mg/dL (70-99); Magnesium 1.7 mg/dL (1.6-2.6); Osmolality,Calculated 305 (280-300); Potassium 4.6 mEq/L (3.5-4.5); eGFR For African Americans > 60 (> 60); eGFR For Non-African Americans > 60 (> 60)
[2017-05-08 08:47] LABS: Sodium 144 mEq/L (136-145)
[2017-05-08 10:18] LABS: ABG HCO3 32 mEq/L (21-27); ABG Oxygen Saturation 93 % (95-98); ABG PCO2 53 mmHg (35-45); ABG PH 7.39 pH Units (7.32-7.45); ABG PO2 68 mmHg (85-104)
[2017-05-08] MEDS: predniSONE 20 MG TABLET PO SCH (10:23)
[2017-05-08] MEDS: Diltiazem CD (24hr) 180 MG CAPSULE PO SCH (10:23)
[2017-05-08] MEDS: Aspirin Enteric Coated 81 MG Tablet PO SCH (10:23)
[2017-05-08] MEDS: Carbidopa/Levodopa ER 50/200 TABLET PO SCH ×3 (10:24→21:00)
[2017-05-08] MEDS: *HR* Heparin 5,000 UNIT/ML VIAL SQ SCH ×2 (10:24→15:28)
--- NOTE | 2017-05-08 12:05 | Internal Med Progress Note ---
Date of Encounter: 05/08/17 Time of Encounter: 12:04 - Assessment and plan (1) Acute on chronic respiratory failure with hypoxia and hypercapnia Current Visit: Yes Status: Acute Assessment and plan: Reviewed her ABG She is currently on 3 lit NC Breathing comfortably on NC Will use BiPAP PRN during day time continuous at bed time No signs of Pneumonia / Infection However she is high risk for aspiration she is on 10 days course of Augmentin for her recent UTI, will finish 10 days course talked to pt's daughter about pt's worsening dementia, worsening respiratory status, high risk for aspiration, rapidly declining status, failure to thrive and poor PO intake with PCM, over all very poor prognosis. Pt's daughter agreed for home hospice care. Spoke to palliative care team, who is going to f/u with pt and family again (2) Diastolic CHF, acute on chronic Current Visit: Yes Status: Acute Assessment and plan: Reviewed CXR showed vascular congestion and mild pleural effusion will give small dose of Lasix since her PO intake very poor, will do very gentle diuresis only (3) COPD exacerbation Current Visit: No Status: Acute Assessment and plan: improving cont duoneb and O2 cont PO steroids (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 Current Visit: No Status: Chronic Qualifiers: Dementia behavioral disturbance: without behavioral disturbance Qualified Code(s): G20 - Parkinson's disease; F02.80 - Dementia in other diseases classified elsewhere without behavioral disturbance; F02.80 - Dementia in other diseases classified elsewhere without behavioral disturbance; F02.80 - Dementia in other diseases classified elsewhere without behavioral disturbance (5) Pleural effusion Current Visit: Yes Status: Acute (6) Failure to thrive Current Visit: Yes Status: Acute Assessment and plan: speech eval done recommend pureed diet Qualifiers: Qualified Code(s): R62.7 - Adult failure to thrive (7) Severe protein-calorie malnutrition Current Visit: Yes Status: Acute Assessment and plan: Nutrition consulted (8) Physical deconditioning Current Visit: Yes Status: Acute Assessment and plan: Over all poor prognosis.. Get benefit with comfort care.. Pt's family requested for comfort care..Palliative care team on board - Subjective Interval history: Ms. Jseus is a 82 year old female with a past medical history of COPD who presented to the emergency department with worsening mental status and difficulty breathing. Her family reported that she had been gargling with her mouth open. She was admitted with similar symptoms and discharged within the past week. In the ER, Patient had crackles bilaterally in posterior lung wick. Patient was placed on BiPAP. Her symptoms significantly improved. Pt was admitted here for acute hypoxic resp failure with posisble COPD exacerbation and CHF exacerbation. Her symptoms little better now. She is alert , awake and demented, not oriented. Talked to pt's daughter at bed side - Constitutional Vitals: Temp Pulse Resp BP Pulse Ox 98.3 F 84 16 177/83 94 05/08/17 10:37 05/08/17 10:37 05/08/17 10:37 05/08/17 10:37 05/08/17 10:37 General appearance: Present: cachectic, A&O X 0, mild distress - Head Head exam: Present: atraumatic, normal inspection - Neck Neck exam general surgery: Present: supple - Respiratory Respiratory exam: Present: decreased breath sounds, respiratory distress (mild) , wheezes (moderate). Absent: rales, rhonchi, stridor - Cardiovascular Cardiovascular exam: Present: RRR, +S1, +S2. Absent: systolic murmur - GI/Abdominal GI/Abdominal exam: Present: soft. Absent: rebound, rigid, tenderness - Extremities Exam Extremities exam: Present: pedal edema (1+). Absent: calf tenderness, tenderness - Neurological Exam Neurological exam: Present: altered - Psychiatric Additional comments: Demented Internal Medicine: Result - Labs CBC & Chem 7: 05/08/17 07:57 05/08/17 07:57 Labs: Short CBC 05/08/17 Range/Units 07:57 WBC 8.2 (4.3-11.1) K/mcL Hgb 11.6 (11.5-15.4) g/dL Hct 36.1 (35.3-44.9) % Plt Count 98 L (140-400) K/mcL BMP 05/08/17 07:57 Sodium 144 Potassium 4.6 H Chloride 109 Carbon Dioxide 30 H BUN 33 H Creatinine 0.69 Glucose 90 Calcium 8.0 L - ABG Interpretation ABG results: ABG ABG pH 7.39 pH Units (7.32-7.45) 05/07/17 15:21 ABG pCO2 53 mmHg (35-45) H 05/07/17 15:21 ABG pO2 68 mmHg (85-104) L 05/07/17 15:21 ABG O2 Saturation 93 % (95-98) L 05/07/17 15:21 Consult Discharge Plan - Plan Referrals: Virgilio Delcid Jr, MD [Primary Care Provider] -
[2017-05-08] MEDS ORDERED: Furosemide 20 MG/2 ML VIAL IVP ONE (12:21)
[2017-05-08 14:59] LABS: ABG Base Excess 6 mEq/L (-2 to 3); ABG HCO3 32 mEq/L (21-27); ABG Oxygen Saturation 93 % (95-98); ABG PCO2 53 mmHg (35-45); ABG PH 7.39 pH Units (7.32-7.45); ABG PO2 68 mmHg (85-104); ABG TCO2 34 mEq/L (20-26)
[2017-05-08] MEDS: Acetaminophen 325 MG TABLET PO PRN (15:37)
[2017-05-08] MEDS: Ipratropium/Albuterol Neb 3 ML IH SCH ×3 (15:46→22:22)
[2017-05-09] MEDS: *HR* Heparin 5,000 UNIT/ML VIAL SQ SCH ×3 (00:01→16:49)
[2017-05-09] MEDS: Ipratropium/Albuterol Neb 3 ML IH SCH ×4 (03:41→21:59)
[2017-05-09] MEDS: predniSONE 20 MG TABLET PO SCH (08:46)
[2017-05-09] MEDS: Aspirin Enteric Coated 81 MG Tablet PO SCH (08:46)
[2017-05-09] MEDS: Carbidopa/Levodopa ER 50/200 TABLET PO SCH ×3 (08:46→21:01)
[2017-05-09] MEDS: Diltiazem CD (24hr) 180 MG CAPSULE PO SCH (08:46)
[2017-05-09 09:12] LABS: BUN/Creatinine Ratio 42 (6-26); Blood Urea Nitrogen 32 mg/dL (7-20); Calcium 8.4 mg/dL (8.6-10.8); Carbon Dioxide 31 mEq/L (19-29); Chloride 107 mEq/L (98-109); Glucose 124 mg/dL (70-99); Magnesium 1.7 mg/dL (1.6-2.6); Osmolality,Calculated 312 (280-300); Potassium 3.8 mEq/L (3.5-4.5); Sodium 147 mEq/L (136-145); eGFR For African Americans > 60 (> 60); eGFR For Non-African Americans > 60 (> 60)
--- NOTE | 2017-05-09 09:30 | Palliative Progress Note ---
Date of Encounter: 05/09/17 Time of Encounter: 09:15 - Assessment and plan (1) Dyspnea Current Visit: No Status: Acute Assessment and plan: Bipap PRN - off currently and on nasal cannula. Received one time dose IV lasix yesterday. Continue on duonebs/steroids. Monitor. Qualifiers: Dyspnea type: unspecified Qualified Code(s): R06.00 - Dyspnea, unspecified (2) Dysphagia Current Visit: No Status: Acute Assessment and plan: Cleared by speech for pureed with honey thick. Needs assistance with eating. Intake was good last admission - ate 30-40% of breakfast this am. Monitor. High risk for aspiration. (3) Counseling regarding advanced care planning and goals of care Current Visit: No Status: Acute Assessment and plan: Patient daughter and S/O at bedside. Discussed goals of care. Daughter still declining hospice and wants to take pt home with home health. We discussed that the episode pt experienced at home is likely to reoccur - with hospice they could call nurse and manage at home, but will home health - it is likely she will have frequent rehospitalizations. Daughter states they are not ready for hospice. Will continue to follow clinical course at a distance. (4) Parkinson disease Current Visit: No Status: Chronic (5) COPD exacerbation Current Visit: No Status: Acute - Time Spent With Patient Total time spent is greater than 50% in coordination of care (as documented) at patient's floor/unit and/or counseling patient: 25 - 35 minutes - Subjective Interval history: Patient sitting up in bed - I assisted her for breakfast. She is pleasantly disoriented. Denies pain or discomfort. Appears to be in no respiratory distress, off bipap at present. - Constitutional Vitals: Abnormal lab results RDW 15.0 % (11.5-14.5) H 05/08/17 07:57 Plt Count 98 K/mcL (140-400) L 05/08/17 07:57 Immature Plt Fraction 13.0 % (1.1-6.1) H 05/08/17 07:57 ABG pCO2 53 mmHg (35-45) H 05/07/17 16:03 ABG pO2 68 mmHg (85-104) L 05/07/17 16:03 ABG HCO3 32 mEq/L (21-27) H 05/07/17 16:03 ABG Total CO2 34 mEq/L (20-26) H 05/07/17 16:03 ABG O2 Saturation 93 % (95-98) L 05/07/17 16:03 ABG Base Excess 6 mEq/L (-2 to 3) H 05/07/17 16:03 Sodium 147 mEq/L (136-145) H 05/09/17 08:41 Carbon Dioxide 31 mEq/L (19-29) H 05/09/17 08:41 BUN 32 mg/dL (7-20) H 05/09/17 08:41 BUN/Creatinine Ratio 42 (6-26) H 05/09/17 08:41 Glucose 124 mg/dL (70-99) H 05/09/17 08:41 Calculated Osmolality 312 (280-300) H 05/09/17 08:41 Calcium 8.4 mg/dL (8.6-10.8) L 05/09/17 08:41 General appearance: Present: no acute distress - Respiratory Respiratory exam: Present: decreased breath sounds, CTAB Additional comments: Shallow inspiratory effort - Cardiovascular Cardiovascular exam: Present: +S1, +S2 - GI/Abdominal GI/Abdominal exam: Present: normal bowel sounds, soft - Extremities Exam Extremities exam: Present: normal capillary refill, normal inspection - Neurological Exam Neurological exam: Present: alert Additional comments: Awake and pleasant, but confused and not answering questions appropriately - Skin Skin exam: Present: dry, pallor, warm Palliative Quality Palliative Quality: Screen for Code Status: Yes, Screen for Goals of Care: Yes, Screen for Pain: Yes, If Pain Regimen Started, Initiate Bowel Regimen: No, Screen for Nausea/Vomitting: No - Labs CBC & Chem 7: 05/08/17 07:57 05/09/17 08:41 Labs: Laboratory Results - last 24 hr 05/08/17 05/09/17 04:12 08:41 Sodium 147 H Potassium 3.8 Chloride 107 Carbon Dioxide 31 H BUN 32 H Creatinine 0.76 Est GFR ( Amer) > 60 Est GFR (Non-Af Amer) > 60 BUN/Creatinine Ratio 42 H Glucose 124 H POC Glucose 86 Calculated Osmolality 312 H Calcium 8.4 L Magnesium 1.7 - ABG Interpretation ABG results: ABG ABG pH 7.39 pH Units (7.32-7.45) 05/07/17 16:03 ABG pCO2 53 mmHg (35-45) H 05/07/17 16:03 ABG pO2 68 mmHg (85-104) L 05/07/17 16:03 ABG O2 Saturation 93 % (95-98) L 05/07/17 16:03 Consult Discharge Plan - Plan Referrals: Virgilio Delcid Jr, MD [Primary Care Provider] - (WEB REQUEST SENT ON 05/08/17 )
--- NOTE | 2017-05-09 13:57 | Internal Med Progress Note ---
Date of Encounter: 05/09/17 Time of Encounter: 13:53 - Assessment and plan (1) Acute on chronic respiratory failure with hypoxia and hypercapnia Current Visit: Yes Status: Acute Assessment and plan: Improving She is currently on 2 lit NC Breathing comfortably on NC Will use BiPAP PRN during day time continuous at bed time No signs of Pneumonia / Infection However she is high risk for aspiration she is on 10 days course of Augmentin for her recent UTI, will finish 10 days course talked to pt's daughter about pt's worsening dementia, worsening respiratory status, high risk for aspiration, rapidly declining status, failure to thrive and poor PO intake with PCM, over all very poor prognosis and high chance of recurrent hypoxic resp failure episodes and frequent hospitalizations. Pt's daughter agreed for home hospice care y/d, however today she changed her mind, wanted to go home with home health services only. Want to think about hospice later. 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 Current Visit: No Status: Chronic Qualifiers: Dementia behavioral disturbance: without behavioral disturbance Qualified Code(s): G20 - Parkinson's disease; F02.80 - Dementia in other diseases classified elsewhere without behavioral disturbance; F02.80 - Dementia in other diseases classified elsewhere without behavioral disturbance; F02.80 - Dementia in other diseases classified elsewhere without behavioral disturbance (5) Pleural effusion Current Visit: Yes Status: Acute Assessment and plan: due to diastolic CHF Improving (6) Failure to thrive Current Visit: Yes Status: Acute Assessment and plan: speech eval done recommend pureed diet Qualifiers: Qualified Code(s): R62.7 - Adult failure to thrive (7) Severe protein-calorie malnutrition Current Visit: Yes Status: Acute Assessment and plan: Nutrition consulted (8) Physical deconditioning Current Visit: Yes Status: Acute Assessment and plan: Get benefit with comfort care.. Pt's family states they are not ready for hospice yet - Subjective Interval history: Ms. Jesus is a 82 year old female with a past medical history of COPD who presented to the emergency department with worsening mental status and difficulty breathing. Her family reported that she had been gargling with her mouth open. She was admitted with similar symptoms and discharged within the past week. In the ER, Patient had crackles bilaterally in posterior lung wick. Patient was placed on BiPAP. Her symptoms significantly improved. Pt was admitted here for acute hypoxic resp failure with posisble COPD exacerbation and CHF exacerbation. Her symptoms little better now. She is alert , awake and demented, not oriented. Talked to pt's daughter at bed side,.. No events over night. Using BiPAP at bed time. currently on 2 lit O2 NC - Constitutional Vitals: Temp Pulse Resp BP Pulse Ox 98.5 F 96 20 119/71 100 05/09/17 11:43 05/09/17 11:43 05/09/17 11:43 05/09/17 11:43 05/09/17 11:43 General appearance: Present: cachectic, A&O X 0, no acute distress - Head Head exam: Present: atraumatic, normal inspection - Respiratory Respiratory exam: Present: decreased breath sounds, wheezes (moderate). Absent : rales, respiratory distress, rhonchi - Cardiovascular Cardiovascular exam: Present: RRR, +S1, +S2. Absent: systolic murmur - GI/Abdominal GI/Abdominal exam: Present: normal bowel sounds, soft. Absent: rebound, rigid, tenderness - Extremities Exam Extremities exam: Present: pedal edema (trace). Absent: calf tenderness, tenderness - Back Exam Back exam: Absent: CVA tenderness (L), CVA tenderness (R) - Neurological Exam Neurological exam: Present: alert - Psychiatric Additional comments: Demented Internal Medicine: Result - Labs CBC & Chem 7: 05/08/17 07:57 05/09/17 08:41 Labs: BMP 05/09/17 08:41 Sodium 147 H Potassium 3.8 Chloride 107 Carbon Dioxide 31 H BUN 32 H Creatinine 0.76 Glucose 124 H Calcium 8.4 L - ABG Interpretation ABG results: ABG ABG pH 7.39 pH Units (7.32-7.45) 05/07/17 16:03 ABG pCO2 53 mmHg (35-45) H 05/07/17 16:03 ABG pO2 68 mmHg (85-104) L 05/07/17 16:03 ABG O2 Saturation 93 % (95-98) L 05/07/17 16:03 Consult Discharge Plan - Plan Referrals: Virgilio Delcid Jr, MD [Primary Care Provider] - (WEB REQUEST SENT ON 05/08/17 )
[2017-05-09] MEDS: Acetaminophen 325 MG TABLET PO PRN (14:25)
[2017-05-09] MEDS: Furosemide 20 MG TABLET PO SCH (14:26)
[2017-05-10] MEDS: *HR* Heparin 5,000 UNIT/ML VIAL SQ SCH ×4 (01:19→23:57)
[2017-05-10] MEDS: Ipratropium/Albuterol Neb 3 ML IH SCH ×4 (05:07→21:27)
[2017-05-10 05:42] LABS: BUN/Creatinine Ratio 42 (6-26); Blood Urea Nitrogen 35 mg/dL (7-20); Calcium 8.4 mg/dL (8.6-10.8); Carbon Dioxide 32 mEq/L (19-29); Chloride 108 mEq/L (98-109); Glucose 133 mg/dL (70-99); Magnesium 1.7 mg/dL (1.6-2.6); Osmolality,Calculated 314 (280-300); Sodium 147 mEq/L (136-145); eGFR For African Americans > 60 (> 60); eGFR For Non-African Americans > 60 (> 60)
[2017-05-10 05:44] LABS: Potassium 4.4 mEq/L (3.5-4.5)
[2017-05-10] MEDS: predniSONE 20 MG TABLET PO SCH (10:10)
[2017-05-10] MEDS: Diltiazem CD (24hr) 180 MG CAPSULE PO SCH (10:10)
[2017-05-10] MEDS: Aspirin Enteric Coated 81 MG Tablet PO SCH (10:11)
[2017-05-10] MEDS: Carbidopa/Levodopa ER 50/200 TABLET PO SCH ×3 (10:11→20:51)
[2017-05-10] MEDS: Furosemide 20 MG TABLET PO SCH (10:11)
--- NOTE | 2017-05-10 14:05 | Internal Med Progress Note ---
Date of Encounter: 05/10/17 Time of Encounter: 10:00 - Assessment and plan (1) Acute on chronic respiratory failure with hypoxia and hypercapnia Current Visit: Yes Status: Acute Assessment and plan: Improving She is currently on 2 lit NC Breathing comfortably on NC O2 Will use BiPAP PRN during day time continuous at bed time No signs of Pneumonia / Infection However she is high risk for aspiration she was on 10 days course of Augmentin for her recent UTI, will finish 10 days course talked to pt's daughter about pt's worsening dementia, worsening respiratory status, high risk for aspiration, rapidly declining status, failure to thrive and poor PO intake with PCM, over all very poor prognosis and high chance of recurrent hypoxic resp failure episodes and frequent hospitalizations. Pt's daughter wanted to go home with home health services only. Want to think about hospice later. 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 Current Visit: No Status: Chronic Qualifiers: Dementia behavioral disturbance: without behavioral disturbance Qualified Code(s): G20 - Parkinson's disease; F02.80 - Dementia in other diseases classified elsewhere without behavioral disturbance; F02.80 - Dementia in other diseases classified elsewhere without behavioral disturbance; F02.80 - Dementia in other diseases classified elsewhere without behavioral disturbance (5) Pleural effusion Current Visit: Yes Status: Acute Assessment and plan: due to diastolic CHF Improving (6) Failure to thrive Current Visit: Yes Status: Acute Assessment and plan: speech eval done recommend pureed diet Qualifiers: Qualified Code(s): R62.7 - Adult failure to thrive (7) Severe protein-calorie malnutrition Current Visit: Yes Status: Acute Assessment and plan: Nutrition consulted (8) Physical deconditioning Current Visit: Yes Status: Acute Assessment and plan: Get benefit with comfort care.. Pt's family states they are not ready for hospice yet - Subjective Interval history: Ms. Jesus is a 82 year old female with a past medical history of COPD who presented to the emergency department with worsening mental status and difficulty breathing. Her family reported that she had been gargling with her mouth open. She was admitted with similar symptoms and discharged within the past week. In the ER, Patient had crackles bilaterally in posterior lung wick. Patient was placed on BiPAP. Her symptoms significantly improved. Pt was admitted here for acute hypoxic resp failure with posisble COPD exacerbation and CHF exacerbation. Her symptoms little better now. She is alert , awake and demented, not oriented. Talked to pt's daughter at bed side,.. No events over night. Using BiPAP at bed time. currently on 2 lit O2 NC.. looks more lethargic today. - Constitutional Vitals: Temp Pulse Resp BP Pulse Ox 97.4 F L 98 20 115/51 96 05/10/17 11:18 05/10/17 11:18 05/10/17 11:18 05/10/17 11:18 05/10/17 11:18 General appearance: Present: cachectic, A&O X 0, no acute distress - Head Head exam: Present: atraumatic, normal inspection - Respiratory Respiratory exam: Present: decreased breath sounds. Absent: rales, respiratory distress, rhonchi, wheezes - Cardiovascular Cardiovascular exam: Present: RRR, +S1, +S2. Absent: systolic murmur - GI/Abdominal GI/Abdominal exam: Present: normal bowel sounds, soft. Absent: rebound, rigid, tenderness - Extremities Exam Extremities exam: Absent: calf tenderness, pedal edema, tenderness - Back Exam Back exam: Absent: CVA tenderness (L), CVA tenderness (R) - Neurological Exam Neurological exam: Present: alert - Psychiatric Psychiatric exam: Present: depressed Additional comments: demented Internal Medicine: Result - Labs CBC & Chem 7: 05/08/17 07:57 05/10/17 04:47 Labs: BMP 05/10/17 04:47 Sodium 147 H Potassium 4.4 Chloride 108 Carbon Dioxide 32 H BUN 35 H Creatinine 0.83 Glucose 133 H Calcium 8.4 L - ABG Interpretation ABG results: ABG ABG pH 7.39 pH Units (7.32-7.45) 05/07/17 16:03 ABG pCO2 53 mmHg (35-45) H 05/07/17 16:03 ABG pO2 68 mmHg (85-104) L 05/07/17 16:03 ABG O2 Saturation 93 % (95-98) L 05/07/17 16:03 Consult Discharge Plan - Plan Referrals: Virgilio Delcid Jr, MD [Primary Care Provider] - (WEB REQUEST SENT ON 05/08/17 )
[2017-05-10 15:21] LABS: ABG Base Excess 13 mEq/L (-2 to 3); ABG HCO3 38 mEq/L (21-27); ABG Oxygen Saturation 94 % (95-98); ABG PCO2 51 mmHg (35-45); ABG PH 7.48 pH Units (7.32-7.45); ABG PO2 69 mmHg (85-104); ABG TCO2 40 mEq/L (20-26)
[2017-05-10] MEDS: Acetaminophen 325 MG TABLET PO PRN (15:44)
[2017-05-11] MEDS: Ipratropium/Albuterol Neb 3 ML IH SCH ×2 (04:21→09:37)
[2017-05-11] MEDS: predniSONE 20 MG TABLET PO SCH (07:43)
[2017-05-11] MEDS: *HR* Heparin 5,000 UNIT/ML VIAL SQ SCH (07:43)
[2017-05-11] MEDS: Carbidopa/Levodopa ER 50/200 TABLET PO SCH (07:43)
[2017-05-11] MEDS: Furosemide 20 MG TABLET PO SCH (07:43)
[2017-05-11] MEDS: Diltiazem CD (24hr) 180 MG CAPSULE PO SCH (07:43)
[2017-05-11] MEDS ORDERED: Aspirin 81 MG TAB.CHEW PO SCH (09:00)
[2017-05-11 11:19] VITALS: BP 101/64
--- NOTE | 2017-05-11 11:49 | Discharge Summary ---
Date of Encounter: 05/11/17 Time of Encounter: 11:43 - Discharge Diagnosis (1) Acute on chronic respiratory failure with hypoxia and hypercapnia Priority: Primary Status: Acute (2) Diastolic CHF, acute on chronic Priority: Primary Status: Acute (3) COPD exacerbation Priority: Primary Status: Acute (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 Priority: Secondary Status: Chronic Qualifiers: Dementia behavioral disturbance: without behavioral disturbance Qualified Code(s): G20 - Parkinson's disease; F02.80 - Dementia in other diseases classified elsewhere without behavioral disturbance; F02.80 - Dementia in other diseases classified elsewhere without behavioral disturbance; F02.80 - Dementia in other diseases classified elsewhere without behavioral disturbance (5) Pleural effusion Priority: Secondary Status: Acute (6) Failure to thrive Priority: Secondary Status: Acute Qualifiers: Qualified Code(s): R62.7 - Adult failure to thrive (7) Severe protein-calorie malnutrition Priority: Secondary Status: Acute (8) Physical deconditioning Priority: Secondary Status: Acute - Discharge Medications Prescriptions: Furosemide [Lasix] 20 mg PO DAILY PRN #20 tablet PRN Reason: Shortness Of Breath predniSONE [PredniSONE] 40 mg PO DAILY #10 tablet Home Medications: Aspirin Enteric Coated [Aspirin EC] 81 mg PO DAILY #30 tablet.dr 03/08/15 [Rx] Calcitriol [Rocaltrol] 0.25 mcg PO DAILY #30 capsule 03/08/15 [Rx] Diltiazem HCl [Diltiazem ER] 180 mg PO DAILY 04/28/17 [History] Carbidopa/Levodopa ER 50/200 [Sinemet ER 50-200 Tab] 1 each PO TID #30 tablet.er 05/04/17 [Rx] Quetiapine Fumarate [Seroquel] 12.5 mg PO HS #30 tablet 05/04/17 [Rx] Ipratropium/Albuterol Neb [Duoneb] 3 ml IH [id number] PRN #30 inhsol 05/05/17 [Rx] Furosemide [Lasix] 20 mg PO DAILY PRN #20 tablet 05/11/17 [Rx] predniSONE [PredniSONE] 40 mg PO DAILY #10 tablet 05/11/17 [Rx] Allergies/Adverse Reactions: 3 Allergy/AdvReac Type Severity Reaction Status Date / Time No Known Allergies Allergy Verified 02/25/15 19:57 Date of admission: 05/07/17 19:35 Primary care physician: Virgilio Delcid Jr, MD Consults: 05/07/17 21:09 Consult to Speech Therapy [CONS] Routine Comment: Evaluate, develop and implement POC Reason for Consult: Pt started to cough after adminstered the dysphagia screening. Time Notified: 21:02 Call Completed: No 05/07/17 23:34 Consult to Palliative Care [CONS] Routine Comment: Consulting Provider: Palliative Care Haley Reason for Consult: Readmission. Probable end stage COPD Call Completed: No - Patient Status Disposition: Home Health Service Condition: Fair Overall status at discharge: patient is back to baseline - Discharge Instructions Follow Up With: Virgilio Delcid Jr, MD [Primary Care Provider] - (WEB REQUEST SENT ON 05/08/17 ) - Diet and Activity Activity: increase activity as tolerated Diet: other (Pureed diet, honey thick liquids) Hospital course: Ms. Jesus is a 82 year old female with a past medical history of COPD who presented to the emergency department with worsening mental status and difficulty breathing. Her family reported that she had been gargling with her mouth open. She was admitted with similar symptoms and discharged within the past week. In the ER, Patient had crackles bilaterally in posterior lung wick. Patient was placed on BiPAP. Her symptoms significantly improved. Pt was admitted here for acute hypoxic resp failure with possible COPD exacerbation and CHF exacerbation. She was placed on BiPAP initially and started on PO steroids. She does not have any pneumonia / no infiltrates on CXR. Also started her on gentle diuresis, her symptoms started improving slowly. She does have chronic hyper capneic resp fialure, does use BiPAP at bed time. Talked to pt's daughter about pt's worsening dementia, worsening respiratory status, high risk for aspiration, rapidly declining status, failure to thrive and poor PO intake with PCM, over all very poor prognosis and high chance of recurrent hypoxic resp failure episodes and frequent hospitalizations. Pt's daughter wanted to go home with home health services only. Want to think about hospice later. Pt was evaluated by our speech therapy who suggested for pureed diet and jani thickened liquids only.. educated the family about the diet - Time Spent with Patient Total time spent providing and/or coordinating discharge services: - Constitutional Vitals: Temp Pulse Resp BP Pulse Ox 97.6 F 98 12 101/64 92 05/11/17 11:18 11/19/17 11:18 05/11/17 11:18 05/11/17 11:18 05/11/17 11:18 General appearance: Present: cachectic, A&O X 1, no acute distress - Head Head exam: Present: atraumatic, normal inspection - Neck Neck exam general surgery: Present: supple - Respiratory Respiratory exam: Present: decreased breath sounds, wheezes (mild). Absent: rales, respiratory distress, rhonchi - Cardiovascular Cardiovascular exam: Present: RRR, +S1, +S2. Absent: systolic murmur - GI/Abdominal GI/Abdominal exam: Present: normal bowel sounds, soft. Absent: rebound, rigid, tenderness - Extremities Exam Extremities exam: Absent: calf tenderness, pedal edema, tenderness
--- NOTE | 2017-05-11 11:52 | Physician Discharge Referral ---
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 For more information, call the [place] Tobacco Quit Line at 4-704-HVPQ-NOW. - Diet/Nutrition Diet/Nutrition Orders: Pureed - Services Needed Following services are medically necessary services: Nursing, Physical Therapy, Occupational Therapy - Transfer Medications Prescriptions: Furosemide [Lasix] 20 mg PO DAILY PRN #20 tablet PRN Reason: Shortness Of Breath predniSONE [PredniSONE] 40 mg PO DAILY #10 tablet Home Medications: Aspirin Enteric Coated [Aspirin EC] 81 mg PO DAILY #30 tablet.dr 03/08/15 [Rx] Calcitriol [Rocaltrol] 0.25 mcg PO DAILY #30 capsule 03/08/15 [Rx] Diltiazem HCl [Diltiazem ER] 180 mg PO DAILY 04/28/17 [History] Carbidopa/Levodopa ER 50/200 [Sinemet ER 50-200 Tab] 1 each PO TID #30 tablet.er 05/04/17 [Rx] Quetiapine Fumarate [Seroquel] 12.5 mg PO HS #30 tablet 05/04/17 [Rx] Ipratropium/Albuterol Neb [Duoneb] 3 ml IH [id number] PRN #30 inhsol 05/05/17 [Rx] Furosemide [Lasix] 20 mg PO DAILY PRN #20 tablet 05/11/17 [Rx] predniSONE [PredniSONE] 40 mg PO DAILY #10 tablet 05/11/17 [Rx] Allergies/Adverse Reactions: 3 Allergy/AdvReac Type Severity Reaction Status Date / Time No Known Allergies Allergy Verified 02/25/15 19:57 Certification: Further, I certify that my clinical findings support that this patient is homebound (i.e. absences from home require considerable and taxing effort and are for medical reasons or jain services or infrequently or short duration when for other reasons) because: Homebound Reason: Patient requires assistance of a person or device to safely leave home Attestation: My signature below is to certify that this patient is under my care and that I, or nurse practitioner, or a physician's tv production assistant working with me, has a face-to -face encounter with this patient.
== END 2017-05-11 14:20 | disposition home health service (06) | DRG 189 ==
LOC: EMEROO 14:56 → 2ANU 14:56
PROVIDERS: ADMIT Family Medicine; ATTEND Family Medicine

== ENCOUNTER 2017-07-07 03:57 | Inpatient (IN) ==
[2017-07-07] MEDS ORDERED: 0.9 % Sodium Chloride 1,000 ML IVC ONE (04:25)
--- NOTE | 2017-07-07 04:39 | Emergency Department Note ---
START Narrative - START START: I examined this patient and my medical decision-making was reviewed with the Resident Physician. I agree with the documented findings, disposition and treatment plan as described except to the extent set forth below. Abd pain, will get CT scan and check lactate given history of afib to ro ischemic colitis. Disposition pending results of imaging and laboratory analysis.
[2017-07-07 04:49] LABS: Basophils % 0.1 %; Hematocrit 38.3 % (35.3-44.9); Immature Granulocytes % 0.6 % (0-4); Lymphocytes # 1.3 K/mcL (0.6-4.6); Lymphocytes % 5.7 %; Mean Corpuscular HGB Conc 31.3 g/dL (31.6-35.5); Mean Corpuscular Hemoglobin 30.6 pg (28.0-33.3); Mean Corpuscular Volume 97.7 fL (83.0-100.0); Mean Platelet Volume 9.7 fL (9.4-12.4); Monocytes % 4.6 %; Platelet Count 340 K/mcL (140-400); Red Blood Count 3.92 M/mcL (3.82-4.97); Red Cell Distribution Width 16.2 % (11.5-14.5)
[2017-07-07 04:55] LABS: Bilirubin,Urine Moderate (Negative); Blood,Urine Negative (Negative); Clarity,Urine Turbid (Clear); Glucose,Urine (UA) Normal (Normal); Ketones,Urine Negative (Negative); Leukocyte Esterase,Urine Trace (Negative); Nitrite,Urine Negative (Negative); Protein,Urine 30 mg/dL (Neg-Trace); Specific Gravity,Urine 1.015 (1.010-1.025); Urobilinogen,Urine Normal (Normal)
[2017-07-07 04:57] LABS: INR 1.2
[2017-07-07 04:57] LABS: Squamous Epithelial Cell,Urine Many per lpf (None-Few)
[2017-07-07 05:13] LABS: Albumin 3.5 g/dL (3.5-5.7); Albumin/Globulin Ratio 1.1 (1.1-2.2); Bilirubin,Direct 1.6 mg/dL (0.0-0.2); Bilirubin,Indirect 1.6 mg/dL (0.0-1.2); Bilirubin,Total 3.2 mg/dL (0.3-1.0); Calcium 10.6 mg/dL (8.6-10.3); Globulin 3.2 g/dL (2.4-3.5); Potassium 4.6 mEq/L (3.5-5.1); Total Protein 6.7 g/dL (6.4-8.9)
[2017-07-07 05:17] LABS: Color,Urine Dark Yellow (Yellow)
[2017-07-07] MEDS ORDERED: Piperacillin/Tazobactam 3.375 GM in D5% in Water (Mini-Bag+) 100 ML IVPB ONE (05:18)
[2017-07-07 05:21] LABS: Amorphous Sediment,Urine Many (Few); Bacteria,Urine Moderate per hpf (None-Few); Granular Casts,Urine Few per lpf (None Seen)
[2017-07-07 05:22] LABS: Yeast,Urine Moderate per hpf (None Seen)
[2017-07-07] MEDS ORDERED: Piperacillin/Tazobactam 3.375 GM in Water for inj. (sterile) 20 ML 20 ML IVPB ONE (05:30)
--- NOTE | 2017-07-07 05:45 | Emergency Department Note ---
Disposition Clinical Impression: Abdominal pain, Cholecystitis Disposition: Admitted As Inpatient Condition: Critical Referrals: Virgilio Delcid Jr, MD [Primary Care Provider] - Abdominal Pain HPI - General Chief Complaint: ED Abdominal Pain Stated Complaint: abdominal pain Time Seen by Provider: 07/07/17 04:23 Source: family Mode of arrival: ambulatory Limitations: no limitations Nursing Notes Reviewed: Yes Vital Signs Reviewed: Yes - History of Present Illness HPI Narrative: Patient brought in by EMS. Daughter at bedside. Past medical history of COPD and atrial fibrillation presenting for evaluation of abdominal pain. Symptoms started yesterday and have been progressively worsening nature. Nausea with several episodes of vomiting. Generalized abdominal pain. Tender to palpation. Worse with movement as well as food. No associated fevers with generalized feeling of malaise. No chest pain, shortness of breath. Pain Scale: 5 - Related Data Home Medications Medication Instructions Recorded Confirmed Diltiazem HCl [Diltiazem ER] 180 mg PO DAILY 04/28/17 05/07/17 Previous Rx's Medication Instructions Recorded Aspirin Enteric Coated [Aspirin EC] 81 mg PO DAILY #30 tablet. 03/08/15 Calcitriol [Rocaltrol] 0.25 mcg PO DAILY #30 capsule 03/08/15 Carbidopa/Levodopa ER 50/200 1 each PO TID #30 tablet.er 05/04/17 [Sinemet ER 50-200 Tab] Quetiapine Fumarate [Seroquel] 12.5 mg PO HS #30 tablet 05/04/17 Ipratropium/Albuterol Neb [Duoneb] 3 ml IH [id number] PRN #30 inhsol 05/05/17 Furosemide [Lasix] 20 mg PO DAILY PRN #20 tablet 05/11/17 predniSONE [PredniSONE] 40 mg PO DAILY #10 tablet 05/11/17 Allergies Allergy/AdvReac Type Severity Reaction Status Date / Time No Known Allergies Allergy Verified 07/07/17 03:58 Review of Systems: CONSTITUTIONAL: Weakness and fatigue No weight loss, fever, chills HEENT: Eyes: No visual changes. Ears, Nose, Throat: No hearing loss, difficulty talking or unable to swallow. SKIN: No rash or itching. CARDIOVASCULAR: No chest pain, chest pressure or chest discomfort. No palpitations or edema. RESPIRATORY: No shortness of breath, cough or sputum. GASTROINTESTINAL: Abdominal pain with nausea and vomiting GENITOURINARY: Chronic urinary incontinence NEUROLOGICAL: No headache, dizziness, syncope, paralysis, ataxia, numbness or tingling in the extremities. No change in bowel or bladder control. MUSCULOSKELETAL: No muscle pain, back pain, joint pain or stiffness. 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 Ultrasound is still pending. Patient is undergoing CT cystogram. The patient is getting breathing treatments for respiratory problems. Patient does have advanced COPD. The pending ultrasound as well as CT cystogram been signed out to Dr. Braun. - Consultations Consultation #1: Discussed with radiology. There is concern for extraluminal [place]. Patient will need to undergo CT cystogram for further evaluation. Vital Signs Temperature 97.8 F 07/07/17 03:59 Pulse Rate 93 07/07/17 03:59 Respiratory Rate 22 07/07/17 03:59 Blood Pressure 72/44 07/07/17 03:59 O2 Sat by Pulse Oximetry 89 07/07/17 03:59 Temperature 97.8 F 07/07/17 03:59 Pulse Rate 96 07/07/17 05:28 Respiratory Rate 16 07/07/17 05:28 Blood Pressure 106/84 07/07/17 05:28 O2 Sat by Pulse Oximetry 96 07/07/17 05:28 Oxygen Delivery Oxygen Delivery Nasal Cannula Abdominal Pain - Lab Data Result diagrams: 07/07/17 04:44 07/07/17 04:44 Lab Results 07/07/17 07/07/17 07/07/17 Range/Units 04:44 04:44 04:44 WBC 22.4 H (4.3-11.1) K/mcL RBC 3.92 (3.82-4.97) M/mcL Hgb 12.0 (11.5-15.4) g/dL Hct 38.3 (35.3-44.9) % MCV 97.7 (83.0-100.0) fL MCH 30.6 (28.0-33.3) pg MCHC 31.3 L (31.6-35.5) g/dL RDW 16.2 H (11.5-14.5) % Plt Count 340 (140-400) K/mcL MPV 9.7 (9.4-12.4) fL Immature Gran % 0.6 (0-4) % Seg Neutrophils % 89.0 % Lymphocytes % 5.7 % Monocytes % 4.6 % Eosinophils % 0.0 % Basophils % 0.1 % Neutrophils # 20.0 H (1.6-8.9) K/mcL Lymphocytes # 1.3 (0.6-4.6) K/mcL Monocytes # 1.0 (0.0-1.3) K/mcL Eosinophils # 0.0 (0.0-0.6) K/mcL Basophils # 0.0 (0.0-0.2) K/mcL PT 13.0 H (9.4-12.1) Seconds INR 1.2 Sodium 139 (136-145) mEq/L Potassium 4.6 (3.5-5.1) mEq/L Chloride 102 (98-107) mEq/L Carbon Dioxide 27 (23-29) mEq/L BUN 34 H (8-23) mg/dL Creatinine 1.29 H (0.60-1.20) mg/dL Est GFR ( Amer) 48 L (> 60) Est GFR (Non-Af Amer) 39 L (> 60) BUN/Creatinine Ratio 26 (6-26) Glucose 158 H (70-105) mg/dL Calculated Osmolality 299 (280-300) Lactic Acid (0.5-2.2) mmol/L Calcium 10.6 H (8.6-10.3) mg/dL Total Bilirubin 3.2 H (0.3-1.0) mg/dL Direct Bilirubin 1.6 H (0.0-0.2) mg/dL Indirect Bilirubin 1.6 H (0.0-1.2) mg/dL AST 142 H (13-39) Units/L ALT 23 (7-52) Units/L Alkaline Phosphatase 191 H (34-104) Units/L Serum Total Protein 6.7 (6.4-8.9) g/dL Albumin 3.5 (3.5-5.7) g/dL Globulin 3.2 (2.4-3.5) g/dL Albumin/Globulin Ratio 1.1 (1.1-2.2) Lipase 584 H (11-82) Units/L Urine Color (Yellow) Urine Clarity (Clear) Urine pH (5.0-8.0) pH Units Ur Specific [place] (1.010-1.025) Urine Protein (Neg-Trace) mg/dL Urine Glucose (UA) (Normal) mg/dL Urine Ketones (Negative) mg/dL Urine Blood (Negative) Urine Nitrite (Negative) Urine Bilirubin (Negative) Urine Urobilinogen (Normal) mg/dL Ur Leukocyte Esterase (Negative) Urine Microscopic WBC (0-3) per hpf Ur Squamous Epith Cells (None-Few) per lpf Amorphous Sediment (Few) Urine Bacteria (None-Few) per hpf Granular Casts (None Seen) per lpf Urine Yeast (None Seen) per hpf Ur Culture Indicated? (NO) 07/07/17 07/07/17 Range/Units 04:44 04:45 WBC (4.3-11.1) K/mcL RBC (3.82-4.97) M/mcL Hgb (11.5-15.4) g/dL Hct (35.3-44.9) % MCV (83.0-100.0) fL MCH (28.0-33.3) pg MCHC (31.6-35.5) g/dL RDW (11.5-14.5) % Plt Count (140-400) K/mcL MPV (9.4-12.4) fL Immature Gran % (0-4) % Seg Neutrophils % % Lymphocytes % % Monocytes % % Eosinophils % % Basophils % % Neutrophils # (1.6-8.9) K/mcL Lymphocytes # (0.6-4.6) K/mcL Monocytes # (0.0-1.3) K/mcL Eosinophils # (0.0-0.6) K/mcL Basophils # (0.0-0.2) K/mcL PT (9.4-12.1) Seconds INR Sodium (136-145) mEq/L Potassium (3.5-5.1) mEq/L Chloride (98-107) mEq/L Carbon Dioxide (23-29) mEq/L BUN (8-23) mg/dL Creatinine (0.60-1.20) mg/dL Est GFR ( Amer) (> 60) Est GFR (Non-Af Amer) (> 60) BUN/Creatinine Ratio (6-26) Glucose (70-105) mg/dL Calculated Osmolality (280-300) Lactic Acid 2.4 H (0.5-2.2) mmol/L Calcium (8.6-10.3) mg/dL Total Bilirubin (0.3-1.0) mg/dL Direct Bilirubin (0.0-0.2) mg/dL Indirect Bilirubin (0.0-1.2) mg/dL AST (13-39) Units/L ALT (7-52) Units/L Alkaline Phosphatase (34-104) Units/L Serum Total Protein (6.4-8.9) g/dL Albumin (3.5-5.7) g/dL Globulin (2.4-3.5) g/dL Albumin/Globulin Ratio (1.1-2.2) Lipase (11-82) Units/L Urine Color Dark Yellow (Yellow) Urine Clarity Turbid A (Clear) Urine pH 6.0 (5.0-8.0) pH Units Ur Specific [place] 1.015 (1.010-1.025) Urine Protein 30 H (Neg-Trace) mg/dL Urine Glucose (UA) Normal (Normal) mg/dL Urine Ketones Negative (Negative) mg/dL Urine Blood Negative (Negative) Urine Nitrite Negative (Negative) Urine Bilirubin Moderate H (Negative) Urine Urobilinogen Normal (Normal) mg/dL Ur Leukocyte Esterase Trace H (Negative) Urine Microscopic WBC 5-15 H (0-3) per hpf Ur Squamous Epith Cells Many H (None-Few) per lpf Amorphous Sediment Many H (Few) Urine Bacteria Moderate H (None-Few) per hpf Granular Casts Few H (None Seen) per lpf Urine Yeast Moderate H (None Seen) per hpf Ur Culture Indicated? NO. (NO)
[2017-07-07] MEDS ORDERED: Ipratropium/Albuterol Neb 3 ML IH ONE (06:16)
[2017-07-07] MEDS ORDERED: Vancomycin 1,000 MG in D5% in Water 250 ML IVPB STA (06:17)
[2017-07-07] MEDS ORDERED: 0.9 % Sodium Chloride 500 ML ONE (06:25)
[2017-07-07] MEDS ORDERED: *HR* FentaNYL (PF) 100 MCG/2 ML VIAL IVP ONE (07:16)
--- NOTE | 2017-07-07 07:34 | Emergency Department Note ---
Disposition Clinical Impression: Cholecystitis, Elevated bilirubin, Common bile duct dilatation Pancreatitis Qualifiers: Chronicity: acute Pancreatitis type: unspecified pancreatitis type Acute pancreatitis complication: unspecified Qualified Code(s): K85.90 - Acute pancreatitis without necrosis or infection, unspecified Disposition: Admitted As Inpatient Condition: Fair General Adult HPI - General Chief complaint: ED Abdominal Pain Stated complaint: abdominal pain Time Seen by Provider: 07/07/17 04:23 Source: family Mode of arrival: ambulatory Limitations: age - History of Present Illness Pain Scale: 5 - Related Data Home Medications Medication Instructions Recorded Confirmed Diltiazem HCl [Diltiazem ER] 180 mg PO DAILY 04/28/17 05/07/17 Previous Rx's Medication Instructions Recorded Aspirin Enteric Coated [Aspirin EC] 81 mg PO DAILY #30 tablet. 03/08/15 Calcitriol [Rocaltrol] 0.25 mcg PO DAILY #30 capsule 03/08/15 Carbidopa/Levodopa ER 50/200 1 each PO TID #30 tablet.er 05/04/17 [Sinemet ER 50-200 Tab] Quetiapine Fumarate [Seroquel] 12.5 mg PO HS #30 tablet 05/04/17 Ipratropium/Albuterol Neb [Duoneb] 3 ml IH [id number] PRN #30 inhsol 05/05/17 Furosemide [Lasix] 20 mg PO DAILY PRN #20 tablet 05/11/17 predniSONE [PredniSONE] 40 mg PO DAILY #10 tablet 05/11/17 Allergies Allergy/AdvReac Type Severity Reaction Status Date / Time No Known Allergies Allergy Verified 07/07/17 03:58 Past Medical History - Past Medical History Medical history: Reports: COPD, dementia, other Surgical history: Reports: hysterectomy, other (neck surgery) Psychiatric history: Reports: no psych history 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 82 y/o female with 24 hrs abd pain. Was found to have acute cholecystitis on CT scan. Initial CT showed possible sommer catheter outside of bladder wall. Obtained a CT cystogram which did not demonstrate perforation. Elevated bilirubin was present. U/S shows dilated CBD and elevated lipase concerning for a stone in the CBD. She received vancomycin and zosyn. I initially spoke with general surgery Dr Gonzalez. He will come and see the patient. I then spoke with Dr Friedman who will come see the patient. I then spoke with Dr Thomas who accepted the patient. She received zosyn and vanc. Will give breathing treatment due to wheezing and hx of COPD. Vital Signs Temperature 97.8 F 07/07/17 03:59 Pulse Rate 93 07/07/17 03:59 Respiratory Rate 22 07/07/17 03:59 Blood Pressure 72/44 07/07/17 03:59 O2 Sat by Pulse Oximetry 89 07/07/17 03:59 Temperature 98.3 F 07/07/17 13:12 Pulse Rate 89 07/07/17 13:12 Respiratory Rate 18 07/07/17 13:12 Blood Pressure 118/82 07/07/17 13:12 O2 Sat by Pulse Oximetry 97 07/07/17 13:12 Oxygen Delivery Oxygen Delivery Nasal Cannula Medical Decision Making - Medical Records Medical records reviewed: Yes I reviewed the patient's medical records. - Lab Data Lab results reviewed: Yes I reviewed the patient's lab results. Result diagrams: 07/07/17 04:44 07/07/17 04:44 Lab Results 07/07/17 07/07/17 07/07/17 Range/Units 04:44 04:44 04:44 WBC 22.4 H (4.3-11.1) K/mcL RBC 3.92 (3.82-4.97) M/mcL Hgb 12.0 (11.5-15.4) g/dL Hct 38.3 (35.3-44.9) % MCV 97.7 (83.0-100.0) fL MCH 30.6 (28.0-33.3) pg MCHC 31.3 L (31.6-35.5) g/dL RDW 16.2 H (11.5-14.5) % Plt Count 340 (140-400) K/mcL MPV 9.7 (9.4-12.4) fL Immature Gran % 0.6 (0-4) % Seg Neutrophils % 89.0 % Lymphocytes % 5.7 % Monocytes % 4.6 % Eosinophils % 0.0 % Basophils % 0.1 % Neutrophils # 20.0 H (1.6-8.9) K/mcL Lymphocytes # 1.3 (0.6-4.6) K/mcL Monocytes # 1.0 (0.0-1.3) K/mcL Eosinophils # 0.0 (0.0-0.6) K/mcL Basophils # 0.0 (0.0-0.2) K/mcL PT 13.0 H (9.4-12.1) Seconds INR 1.2 Sodium 139 (136-145) mEq/L Potassium 4.6 (3.5-5.1) mEq/L Chloride 102 (98-107) mEq/L Carbon Dioxide 27 (23-29) mEq/L BUN 34 H (8-23) mg/dL Creatinine 1.29 H (0.60-1.20) mg/dL Est GFR ( Amer) 48 L (> 60) Est GFR (Non-Af Amer) 39 L (> 60) BUN/Creatinine Ratio 26 (6-26) Glucose 158 H (70-105) mg/dL Calculated Osmolality 299 (280-300) Lactic Acid (0.5-2.2) mmol/L Calcium 10.6 H (8.6-10.3) mg/dL Total Bilirubin 3.2 H (0.3-1.0) mg/dL Direct Bilirubin 1.6 H (0.0-0.2) mg/dL Indirect Bilirubin 1.6 H (0.0-1.2) mg/dL AST 142 H (13-39) Units/L ALT 23 (7-52) Units/L Alkaline Phosphatase 191 H (34-104) Units/L Serum Total Protein 6.7 (6.4-8.9) g/dL Albumin 3.5 (3.5-5.7) g/dL Globulin 3.2 (2.4-3.5) g/dL Albumin/Globulin Ratio 1.1 (1.1-2.2) Lipase 584 H (11-82) Units/L Urine Color (Yellow) Urine Clarity (Clear) Urine pH (5.0-8.0) pH Units Ur Specific [place] (1.010-1.025) Urine Protein (Neg-Trace) mg/dL Urine Glucose (UA) (Normal) mg/dL Urine Ketones (Negative) mg/dL Urine Blood (Negative) Urine Nitrite (Negative) Urine Bilirubin (Negative) Urine Urobilinogen (Normal) mg/dL Ur Leukocyte Esterase (Negative) Urine Microscopic WBC (0-3) per hpf Ur Squamous Epith Cells (None-Few) per lpf Amorphous Sediment (Few) Urine Bacteria (None-Few) per hpf Granular Casts (None Seen) per lpf Urine Yeast (None Seen) per hpf Ur Culture Indicated? (NO) 07/07/17 07/07/17 Range/Units 04:44 04:45 WBC (4.3-11.1) K/mcL RBC (3.82-4.97) M/mcL Hgb (11.5-15.4) g/dL Hct (35.3-44.9) % MCV (83.0-100.0) fL MCH (28.0-33.3) pg MCHC (31.6-35.5) g/dL RDW (11.5-14.5) % Plt Count (140-400) K/mcL MPV (9.4-12.4) fL Immature Gran % (0-4) % Seg Neutrophils % % Lymphocytes % % Monocytes % % Eosinophils % % Basophils % % Neutrophils # (1.6-8.9) K/mcL Lymphocytes # (0.6-4.6) K/mcL Monocytes # (0.0-1.3) K/mcL Eosinophils # (0.0-0.6) K/mcL Basophils # (0.0-0.2) K/mcL PT (9.4-12.1) Seconds INR Sodium (136-145) mEq/L Potassium (3.5-5.1) mEq/L Chloride (98-107) mEq/L Carbon Dioxide (23-29) mEq/L BUN (8-23) mg/dL Creatinine (0.60-1.20) mg/dL Est GFR ( Amer) (> 60) Est GFR (Non-Af Amer) (> 60) BUN/Creatinine Ratio (6-26) Glucose (70-105) mg/dL Calculated Osmolality (280-300) Lactic Acid 2.4 H (0.5-2.2) mmol/L Calcium (8.6-10.3) mg/dL Total Bilirubin (0.3-1.0) mg/dL Direct Bilirubin (0.0-0.2) mg/dL Indirect Bilirubin (0.0-1.2) mg/dL AST (13-39) Units/L ALT (7-52) Units/L Alkaline Phosphatase (34-104) Units/L Serum Total Protein (6.4-8.9) g/dL Albumin (3.5-5.7) g/dL Globulin (2.4-3.5) g/dL Albumin/Globulin Ratio (1.1-2.2) Lipase (11-82) Units/L Urine Color Dark Yellow (Yellow) Urine Clarity Turbid A (Clear) Urine pH 6.0 (5.0-8.0) pH Units Ur Specific [place] 1.015 (1.010-1.025) Urine Protein 30 H (Neg-Trace) mg/dL Urine Glucose (UA) Normal (Normal) mg/dL Urine Ketones Negative (Negative) mg/dL Urine Blood Negative (Negative) Urine Nitrite Negative (Negative) Urine Bilirubin Moderate H (Negative) Urine Urobilinogen Normal (Normal) mg/dL Ur Leukocyte Esterase Trace H (Negative) Urine Microscopic WBC 5-15 H (0-3) per hpf Ur Squamous Epith Cells Many H (None-Few) per lpf Amorphous Sediment Many H (Few) Urine Bacteria Moderate H (None-Few) per hpf Granular Casts Few H (None Seen) per lpf Urine Yeast Moderate H (None Seen) per hpf Ur Culture Indicated? NO. (NO) - Radiology Data Radiology results reviewed: Yes I reviewed the patient's radiology results. Attestation Statement - Attestation Attestation: I examined this patient and my medical decision-making was reviewed with the Resident Physician. I agree with the documented findings, disposition and treatment plan as described except to the extent set forth below. Patient signed out pending CT. Patient does not have a perforated bladder. She has acute cholecystitis with dilated common bile duct. She has been discussed with GI and surgery. She will be admitted to medicine. She meets sepsis criteria. 40 minutes of critical care exclusive of separately billed procedures.
[2017-07-07] MEDS ORDERED: Ondansetron 4 MG/2 ML VIAL IVP ONE (07:41)
[2017-07-07] MEDS ORDERED: Ondansetron 4 MG/2 ML VIAL IVP PRN (08:32)
[2017-07-07] MEDS ORDERED: Naloxone 0.4 MG/ML INJ IVP PRN (08:32)
[2017-07-07] MEDS ORDERED: *HR* Morphine 2 MG/ML SYRINGE IVP PRN (08:32)
[2017-07-07] MEDS ORDERED: Ipratropium/Albuterol Neb 3 ML IH PRN (08:46)
--- NOTE | 2017-07-07 08:59 | Internal Med History&Physical ---
Date of Encounter: 07/08/17 Time of Encounter: 08:50 Assessment and Plan (1) Ascending cholangitis Current visit: Yes Status: Acute 82/female Multiple comorbid conditions as mentioned below. Admitted with persistent abdominal pain along with nausea and vomiting. Elevated WBC: 22K/bilirubin: 3.2/there at 1.6/lipase: 584 Ultrasound abdomen: Dilated CBD ?Ascending Cholangitis Received Vanc/Zosyn in the emergency room GI/surgery on board. Will get Urgent MRCP Of note: Examined this patient in the emergency room #2. Patient and patient's daughter would like to go with full code. Plan of care explained. (2) Pancreatitis Current visit: Yes Status: Acute see above. Qualifiers: Chronicity: acute Pancreatitis type: unspecified pancreatitis type Acute pancreatitis complication: unspecified Qualified Code(s): K85.90 - Acute pancreatitis without necrosis or infection, unspecified (3) Common bile duct dilatation Current visit: Yes Status: Acute see above (4) Advanced care planning/counseling discussion Current visit: No Status: Acute Spoke to the patient and patient's daughter at bedside in room #2 emergency room. I understood from the previous records that she was evaluated by palliative care /hospice team and at that time the CODE STATUS was DNR CC a DNI As per my discussion today, patient and family would like to be a full code and wants everything to be done. I will get palliative team to talk to her again. 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 Qualifiers: Dementia behavioral disturbance: without behavioral disturbance Qualified Code(s): G20 - Parkinson's disease; F02.80 - Dementia in other diseases classified elsewhere without behavioral disturbance; F02.80 - Dementia in other diseases classified elsewhere without behavioral disturbance; F02.80 - Dementia in other diseases classified elsewhere without behavioral disturbance (6) DVT prophylaxis Current visit: No Status: Acute Antiembolic stockings. Medical decision making: This patient has a moderate to severe risk of worsening in spite of being on a appropriate medication and a specialist evaluation due to the underlying advanced age and chronic comorbid conditions. Internal Medicine - H&P: HPI Chief complaint: abdominal pain Admitted From: Emergency Dept Plans for Post Hospital Care: Home History of present illness: PCP: Dr Virgilio Delcid Brief PMH : COPD, HTn, Afib not on A/c, Advanced Dementia, HPI: 82-year-old female presented to emergency department for worsening abdominal pain. Patient has ongoing abdominal pain for past 2-3 days but last night her pain got worsened to the extent that along with the abdominal pain patient was having persistent nausea and an episode of vomiting. The worsening abdominal pain was progressing rapidly in last 12 hours and that was the reason patient's daughter brought patient to the emergency department for further evaluation. Patient denies chest pain, shortness of breath, dizziness, diarrhea. Workup in the emergency room: Patient was evaluated in the emergency room. Basic labs were drawn. Noted that patient has a elevated white blood cell count 22,000. Her creatinine is 1.29. Lactic acid is 2.4. Direct bilirubin is 1.6 along with an indirect bilirubin of 1.6. Patient does elevated AST of 142 and lipase of 584. Ultrasound shows dilated CBD. Reason for admission: Possible ascending cholangitis in a patient who has advanced COPD/dementia and was recently discharged on a prednisone 40 mg. Family history: Noncontributory Past Med Surg Social Fam HX - Past Medical History Medical history: COPD, dementia, other Psychiatric history: no psych history - Past Surgical History Surgical History: hysterectomy, other (neck surgery) - Social History Smoking Status: Former smoker Smokeless Tobacco Status: No Alcohol use: none Drug use: none - Family History Father Adopted: No Living Status: Hx Family Cardiac Disorders: Yes Hx Family Respiratory Disorders: No Hx Family Cancer: No Hx Family GI Disorders: No Hx Family Endocrine Disorder: Yes Hx Family Neuromuscular Disorders: No Hx Family Neurologic Disorders: No Hx Family HEENT Disorders: No Hx Family Autoimmune Disorders: No Internal Medicine - H&P: Meds Aspirin Enteric Coated [Aspirin EC] 81 mg PO DAILY #30 tablet. 03/08/15 [Rx] Calcitriol [Rocaltrol] 0.25 mcg PO DAILY #30 capsule 03/08/15 [Rx] Diltiazem HCl [Diltiazem ER] 180 mg PO DAILY 04/28/17 [History] Carbidopa/Levodopa ER 50/200 [Sinemet ER 50-200 Tab] 1 each PO TID #30 tablet.er 05/04/17 [Rx] Quetiapine Fumarate [Seroquel] 12.5 mg PO HS #30 tablet 05/04/17 [Rx] Ipratropium/Albuterol Neb [Duoneb] 3 ml IH [id number] PRN #30 inhsol 05/05/17 [Rx] Furosemide [Lasix] 20 mg PO DAILY PRN #20 tablet 05/11/17 [Rx] predniSONE [PredniSONE] 40 mg PO DAILY #10 tablet 05/11/17 [Rx] 3 Allergy/AdvReac Type Severity Reaction Status Date / Time No Known Allergies Allergy Verified 07/07/17 03:58 All Systems PM: A 10-system review of systems was performed and is negative for pertinent findings except as documented above in the HPI. - Constitutional Constitutional: no chills, no fever(s), no night sweats - EENT Eyes: no change in vision, no discharge, no pain, no photophobia Ears: no ear discharge, no ear pain, no tinnitus Nose, mouth and throat: no dysphagia, no nasal discharge, no neck pain, no sore throat - Cardiovascular Cardiovascular ROS IM: no chest pain, no diaphoresis, no dyspnea, no lightheadedness, no palpitations, no syncope - Respiratory Respiratory: no cough, no dyspnea, no wheezing, no excessive phlegm production - Gastrointestinal Gastrointestinal: abdominal pain, bloating, nausea, vomiting, no diarrhea, no hematemesis, no hematochezia, no melena - Genitourinary Genitourinary: no change in urinary stream, no dysuria, no flank pain, no hematuria - Musculoskeletal Musculoskeletal ROS IM: no numbness, no tingling - Integumentary Integumentary IM: no rash, no unusual bruising - Neurological Neurological ROS: no confusion, no convulsions, no focal weakness, no numbness, no tingling, no tremor(s) - Hematologic/Lymphatic Hematologic/Lymphatic: no easy bruising - Constitutional Vitals: Temp Pulse Resp BP Pulse Ox 97.8 F 89 18 111/68 100 07/07/17 03:59 07/07/17 08:15 07/07/17 08:31 07/07/17 08:31 07/07/17 08:15 General appearance: Present: mild distress, A&O X 3, pleasant, answers questions appropriately - Head Head exam: Present: atraumatic, normocephalic - Eye Eye exam: Present: PERRL, conjuntiva pink, sclera anicteric Pupils: Present: PERRL - Neck Neck exam general surgery: Present: supple, trachea midline. Absent: lymphadenopathy - Respiratory Respiratory exam: Present: CTAB. Absent: accessory muscle use, rales, rhonchi, wheezes - Cardiovascular Cardiovascular exam: Present: RRR, +S1, +S2. Absent: diastolic murmur, gallop, rubs, systolic murmur - GI/Abdominal GI/Abdominal exam: Present: normal bowel sounds, soft, no peritoneal signs. Absent: distended, tenderness Additional comments: Patient does have right upper quadrant tenderness. Bowel sounds are present. Patient is in mild distress. - Extremities Exam Extremities exam: Present: warm, radial pulses palpable and symmetrical. Absent : calf tenderness, cyanotic, pedal edema - Neurological Exam Neurological exam: Present: CN II-XII intact, oriented X3, no focal deficits. Absent: pronater drift, facial droop, speech deficit - Skin Skin exam: Present: dry, intact Internal Med - H&P Results - Labs CBC & Chem 7: 07/07/17 04:44 07/07/17 04:44
[2017-07-07] MEDS: MetroNIDAZOLE 500 MG/100 ML 500 MG/100 ML BAG IVPB SCH ×3 (09:56→23:40)
[2017-07-07] MEDS: 0.9 % Sodium Chloride 1,000 ML IVC SCH (09:57)
--- NOTE | 2017-07-07 11:15 | General Surgery Consult Note ---
Date of Encounter: 07/07/17 Time of Encounter: 11:12 Assessment and Plan (1) Abdominal pain Current Visit: Yes Status: Acute 82F with intermittent abdominal pain, tender on exam along the R side, sonographic evidence of acute cholecystitis, possible emysemphatous cholecystitis, and lab evidence suggestive of choledocholithiais vs ascending cholangitis and pancreatitis. unable to get a reliable exam due to dementia... neuro: parkinson's dementia at baseline; worsened by acute sepsis; cont home meds if able to swallow; cardiac/pulm: cont to monitor; IS/pulm toileting GI: likely ascending cholangitis 2/2 choledocholithiasis; also likley stones passing through to pancreatitic duct causing pancreatitis; keep NPO; GI consult for ERCP, stent and sphincterotomy; will plan for lap nelson after GI evaluation ; : HEIDY; okay to place sommer if need be to track UOP; trend Cr ID: ascending cholangitis/cholecystitis - start zosyn; trend WBC (currently at 24) heme: SQH q8 FEN: NPO, replete lytes; recommend d5LR or d5NS endo: ISS if needed dispo: recommend ICU; will cont to follow Qualifiers: Abdominal location: right upper quadrant Qualified Code(s): R10.11 - Right upper quadrant pain History of Present Illness Consult date: 07/07/17 Reason for consult: abdominal pain History of present illness: 82F h/o dementia, afib, HLD, CKD, asthma/COPD, was a life long smoker at recent at 2015, who presents with intermittent abdominal pain. Per the patient's daughter, she has been having pain 'off and on' for a month. She is unsure of how long the episodes would last, but states that over the last 24 hours, her symptoms have gotten significantly worse. No reports of nausea or vomiting, but she does report anorexia. Due to the concern of her symptoms she brought the patient to the ER. All imaging was reviewed by me personally; Past Med Surg Social Fam HX - Past Medical History Medical history: atrial fibrillation, COPD, dementia, other Psychiatric history: no psych history - Past Surgical History Surgical History: hysterectomy, other - Social History Smoking Status: Former smoker Smokeless Tobacco Status: No Alcohol use: none Drug use: none - Family History Mother Living Status: Age at : 90 Hx Family Endocrine Disorder: Yes (DM) Father Adopted: No Living Status: Cause of : heart attack Hx Family Cardiac Disorders: Yes Hx Family Respiratory Disorders: No Hx Family Cancer: No Hx Family GI Disorders: No Hx Family Endocrine Disorder: Yes Hx Family Neuromuscular Disorders: No Hx Family Neurologic Disorders: No Hx Family HEENT Disorders: No Hx Family Autoimmune Disorders: No Medications and Allergies Aspirin Enteric Coated [Aspirin EC] 81 mg PO DAILY #30 tablet.dr 03/08/15 [Rx] Calcitriol [Rocaltrol] 0.25 mcg PO DAILY #30 capsule 03/08/15 [Rx] Diltiazem HCl [Diltiazem ER] 180 mg PO DAILY 04/28/17 [History] Carbidopa/Levodopa ER 50/200 [Sinemet ER 50-200 Tab] 1 each PO TID #30 tablet.er 05/04/17 [Rx] Quetiapine Fumarate [Seroquel] 12.5 mg PO HS #30 tablet 05/04/17 [Rx] Ipratropium/Albuterol Neb [Duoneb] 3 ml IH [id number] PRN #30 inhsol 05/05/17 [Rx] Furosemide [Lasix] 20 mg PO DAILY PRN #20 tablet 05/11/17 [Rx] predniSONE [PredniSONE] 40 mg PO DAILY #10 tablet 05/11/17 [Rx] 3 Allergy/AdvReac Type Severity Reaction Status Date / Time No Known Allergies Allergy Verified 07/07/17 03:58 Review of Systems All systems PM: A 10-system review of systems was performed and is negative for pertinent findings except as documented above in the HPI. General Surgery Exam Initial Vital Signs Temp Pulse Resp BP Pulse Ox 97.8 F 93 22 72/44 89 07/07/17 03:59 07/07/17 03:59 07/07/17 03:59 07/07/17 03:59 07/07/17 03:59 - General physical appearance well developed, no distress - ENT normocephalic - Neck no lymphadectomy - Respiratory normal expansion, normal respiratory effort - Cardiovascular Cardiovascular exam: Present: RRR (on my exam) - Abdomen Abdomen general surgery: Present: soft, tender (unable to assess tenderness due to dementia, but there was voluntary guarding on exam with palpation at the right side and RUQ) - Integumentary Integumentary general surgery: Present: warm and dry, other (no jaundice) - Neurologic Present: other (GCS: ~ 11 opens eyes to voice; voluntary motor; patient is able to talk, but did not make sense to me on exam (E:3, V: 2; M: 6)) - Psychiatric Psychiatric general surgery: Present: A&Ox3 Exam Initial Vital Signs Temp Pulse Resp BP Pulse Ox 97.8 F 93 22 72/44 89 07/07/17 03:59 07/07/17 03:59 07/07/17 03:59 07/07/17 03:59 07/07/17 03:59 Results - Labs 07/07/17 04:44 07/07/17 04:44 Abnormal lab results WBC 22.4 K/mcL (4.3-11.1) H 07/07/17 04:44 MCHC 31.3 g/dL (31.6-35.5) L 07/07/17 04:44 RDW 16.2 % (11.5-14.5) H 07/07/17 04:44 Neutrophils # 20.0 K/mcL (1.6-8.9) H 07/07/17 04:44 PT 13.0 Seconds (9.4-12.1) H 07/07/17 04:44 BUN 34 mg/dL (8-23) H 07/07/17 04:44 Creatinine 1.29 mg/dL (0.60-1.20) H 07/07/17 04:44 Est GFR ( Amer) 48 (> 60) L 07/07/17 04:44 Est GFR (Non-Af Amer) 39 (> 60) L 07/07/17 04:44 Glucose 158 mg/dL (70-105) H 07/07/17 04:44 POC Glucose 162 (58-89) H 07/07/17 09:06 Calcium 10.6 mg/dL (8.6-10.3) H 07/07/17 04:44 Total Bilirubin 3.2 mg/dL (0.3-1.0) H 07/07/17 04:44 Direct Bilirubin 1.6 mg/dL (0.0-0.2) H 07/07/17 04:44 Indirect Bilirubin 1.6 mg/dL (0.0-1.2) H 07/07/17 04:44 AST 142 Units/L (13-39) H 07/07/17 04:44 Alkaline Phosphatase 191 Units/L (34-104) H 07/07/17 04:44 Lipase 584 Units/L (11-82) H 07/07/17 04:44 Urine Clarity Turbid (Clear) A 07/07/17 04:45 Urine Protein 30 mg/dL (Neg-Trace) H 07/07/17 04:45 Urine Bilirubin Moderate (Negative) H 07/07/17 04:45 Ur Leukocyte Esterase Trace (Negative) H 07/07/17 04:45 Urine Microscopic WBC 5-15 per hpf (0-3) H 07/07/17 04:45 Ur Squamous Epith Cells Many per lpf (None-Few) H 07/07/17 04:45 Amorphous Sediment Many (Few) H 07/07/17 04:45 Urine Bacteria Moderate per hpf (None-Few) H 07/07/17 04:45 Granular Casts Few per lpf (None Seen) H 07/07/17 04:45 Urine Yeast Moderate per hpf (None Seen) H 07/07/17 04:45 All other labs normal. - Imaging CT scan - abdomen: report reviewed, image reviewed CT scan - pelvis: report reviewed, image reviewed US - abdomen: report reviewed, image reviewed Consult Discharge Plan - Plan Referrals: Virgilio Delcid Jr, MD [Primary Care Provider] -
--- NOTE | 2017-07-07 12:53 | Anesthesia Evaluation PreOp ---
Date of Encounter: 07/07/17 Time of Encounter: 12:51 - Past History Planned Operation: ERCP Cardiac History: Denies any Significant Hx Pulmonary History: COPD (O2 dependent) CLINICAL OPERATIONS CONSULTANT History: Other (Severe Dementia from Rose dx) Other Medical History: Other (Pancreatitis) Anesthesia History: No Prior Anesthetic Complications, Past Anesthesia (ISHAN, Neck sx) : No Alcohol Use: none Drug use: none Medications and Allergies Aspirin Enteric Coated [Aspirin EC] 81 mg PO DAILY #30 tablet.dr 03/08/15 [Rx] Calcitriol [Rocaltrol] 0.25 mcg PO DAILY #30 capsule 03/08/15 [Rx] Diltiazem HCl [Diltiazem ER] 180 mg PO DAILY 04/28/17 [History] Carbidopa/Levodopa ER 50/200 [Sinemet ER 50-200 Tab] 1 each PO TID #30 tablet.er 05/04/17 [Rx] Quetiapine Fumarate [Seroquel] 12.5 mg PO HS #30 tablet 05/04/17 [Rx] Ipratropium/Albuterol Neb [Duoneb] 3 ml IH [id number] PRN #30 inhsol 05/05/17 [Rx] Furosemide [Lasix] 20 mg PO DAILY PRN #20 tablet 05/11/17 [Rx] predniSONE [PredniSONE] 40 mg PO DAILY #10 tablet 05/11/17 [Rx] 3 Allergy/AdvReac Type Severity Reaction Status Date / Time No Known Allergies Allergy Verified 07/07/17 03:58 - Meds/Allergy Pre-op Review Medications Reviewed: Yes Allergies Reviewed: Yes Beta Blockers on Current Med List: No Anesthesia Results - Labs 07/07/17 04:44 07/07/17 04:44 Echocardiogram Name: Eulalia Jesus Date of Study: 03/01/2015 Date: 1935 Ht: 61.0 in Medical Record#: [id number] Age: 79 Wt: 100.0 lb Gender: Female BSA: 1.41 Order #: [id number] Location: [facility] IP Room #: 3A23 Reading Physician: Nic Levy DO Learning Disabilities Teacher: Maricel Flannery Ordering Physician: Steve Appiah MD Primary Physician: Virgilio Delcid MD Indications: Falls Impressions: LVEF 60%. Mild concentric left ventricular hypertrophy. Mild left ventricular diastolic dysfunction. Normal right ventricular structure and function. No evidence of pulmonary hypertension. No significant valvular dysfunction. - Imaging EKG: report reviewed (SR) Anesthesia Exam O2 Sat Height 1.55 m Weight 50.6 kg Weight 49.895 kg O2 Sat by Pulse Oximetry 97 O2 Sat by Pulse Oximetry 96 O2 Sat by Pulse Oximetry 97 O2 Sat by Pulse Oximetry 100 O2 Sat by Pulse Oximetry 90 O2 Sat by Pulse Oximetry 90 O2 Sat by Pulse Oximetry 96 O2 Sat by Pulse Oximetry 89 Vital Signs Temp Pulse Resp BP Pulse Ox 97.8 F 93 22 72/44 89 07/07/17 03:59 07/07/17 03:59 07/07/17 03:59 07/07/17 03:59 07/07/17 03:59 - HEENT Pupil (Motor): Pupils equal, EOMI Mallampati: III Teeth: Edentulous Oral Opening: Greater than 3 - CLINICAL OPERATIONS CONSULTANT LOC: Disoriented CLINICAL OPERATIONS CONSULTANT Motor: Normal RUE, Normal LUE, Normal RLE, Normal LLE, Normal Face CLINICAL OPERATIONS CONSULTANT Sensory: Normal: RUE, LUE, RLE, LLE, Face - Cardiac Rhythm: Regular Murmur: None JVD: No Carotid Bruit: No - Pulmonary Breath Sounds: bilateral Clear Respiratory Effort: Symmetrical Anesthesia Assess/Plan ASA Score: 4 Modified [place] Scale for Level of Consciousness: Cooperative, oriented, and tranquil Anesthetic Plan: General Autologous Blood: Yes Monitoring Plan: Standard Monitors Recovery Plan: PACU
[2017-07-07] MEDS ORDERED: Lidocaine -MPF 2% 2 ML VIAL ONE (13:10)
[2017-07-07] MEDS ORDERED: *HR* Propofol 200 MG/20 ML VIAL IVP ONE (13:10)
[2017-07-07] MEDS ORDERED: *HR* Succinylcholine 200 MG/10 ML VIAL IVP ONE (13:11)
[2017-07-07] MEDS ORDERED: *HR* Phenylephrine 10 MG/ML VIAL ONE (13:12)
--- NOTE | 2017-07-07 13:39 | Gastroenterology Consult Note ---
<Rhina Mercedes M - Last Filed: 07/07/17 13:35> Date of Encounter: 07/07/17 Time of Encounter: 10:45 - Assessment and plan (1) Ascending cholangitis Current Visit: Yes Status: Acute Assessment and plan: Pt presents with abdominal pain, nausea and vomiting. US shows CBD 9-10 mm, CT abdomen showed cholecystitis. MRCP was done which showed prominent PD and CBD, along with elevated WBC and LFTs may indicate obstruction from small stone in the ampulla. She needs ERCP. Discussed with pts daughter, risks and benefits explained and she is in agreement. (2) Cholecystitis Current Visit: Yes Status: Acute (3) Common bile duct dilatation Current Visit: Yes Status: Acute - Time Spent With Patient Total time spent is greater than 50% in coordination of care (as documented) at patient's floor/unit and/or counseling patient: GI History of Present Illness - Data of Consult Patient: new to practice Consult date: 07/07/17 Requesting Physician: Dalton Hagen - Consult Narrative Reason for consult: CBC dilation History of present illness: Ms Jesus is an 82-year-old female with a pmHX of COPD, HTn, Afib not on A/c, and Advanced Dementia due to parkinson's disesase. She presented to emergency department for 2-3 day history of abdominal pain and persistent nausea and an episode of vomiting. The intensity of abdominal pain progressed rapidly in the 12 hours prior to admission. She denies chest pain, shortness of breath, dizziness, diarrhea. Workup in the emergency room elevated white blood cell count 22,000. Her creatinine is 1.29. Lactic acid is 2.4. Direct bilirubin is 1.6 along with an indirect bilirubin of 1.6. Patient does have elevated AST of 142 and lipase of 584, Alk phos 191, ALT 23, . Ultrasound shows dilated CBD 9-10mm. CT abdomen and pelvis showed cholecystitis with questionable tiny focus of gas in the gallbladder wall raises suspicion for emphysematous cholecystitis. Diffuse surrounding inflammatory stranding and fluid. Colonoscopy: ? EGD:? NSAIDS/ASA: asa Anticoagulants: none Past Med Surg Social Fam HX - Past Medical History Medical history: atrial fibrillation, COPD, dementia, other Psychiatric history: no psych history - Past Surgical History Surgical History: hysterectomy, other - Social History Smoking Status: Former smoker Smokeless Tobacco Status: No Alcohol use: none Drug use: none - Family History Mother Living Status: Age at : 90 Hx Family Endocrine Disorder: Yes (DM) Father Adopted: No Living Status: Cause of : heart attack Hx Family Cardiac Disorders: Yes Hx Family Respiratory Disorders: No Hx Family Cancer: No Hx Family GI Disorders: No Hx Family Endocrine Disorder: Yes Hx Family Neuromuscular Disorders: No Hx Family Neurologic Disorders: No Hx Family HEENT Disorders: No Hx Family Autoimmune Disorders: No ROS unobtainable: due to mental status - Constitutional Vitals: Temp Pulse Resp BP Pulse Ox 98.3 F 89 18 118/82 97 07/07/17 13:12 07/07/17 13:12 07/07/17 13:12 07/07/17 13:12 07/07/17 13:12 Exam: CONSTITUTIONAL:~alert, no acute distress.~HEAD:~normocephalic.~EYES:~no jaundice.~NECK:~no obvious swelling.~HEART:~regular rate and rhythm, no murmurs. ~LUNGS:~bilateral fair air entry.~ABDOMEN:~non distended, soft, tender, no masses palpable, no organomegaly.~RECTAL EXAM:~Deferred.~EXTREMITIES:~no clubbing, cyanosis or edema.~SKIN:~no stigmata of chronic liver disease.~ NEUROLOGIC:~no obvious focal defect.~~~~ Results - Labs CBC & Chem 7: 07/07/17 04:44 07/07/17 04:44 Labs: Last Result Calcium 10.6 mg/dL (8.6-10.3) H 07/07/17 04:44 Entire Visit Hgb 12.0 g/dL (11.5-15.4) 07/07/17 04:44 Hct 38.3 % (35.3-44.9) 07/07/17 04:44 PT 13.0 Seconds (9.4-12.1) H 07/07/17 04:44 Total Bilirubin 3.2 mg/dL (0.3-1.0) H 07/07/17 04:44 AST 142 Units/L (13-39) H 07/07/17 04:44 ALT 23 Units/L (7-52) 07/07/17 04:44 Lipase 584 Units/L (11-82) H 07/07/17 04:44 - ABG ABG results: PT/INR, D-dimer PT 13.0 Seconds (9.4-12.1) H 07/07/17 04:44 Consult Discharge Plan - Plan Referrals: Virgilio Delcid Jr, MD [Primary Care Provider] - <Eduardo Friedman - Last Filed: 07/07/17 17:40> Date of Encounter: 07/07/17 Time of Encounter: 13:00 - Time Spent With Patient Total time spent is greater than 50% in coordination of care (as documented) at patient's floor/unit and/or counseling patient: GI History of Present Illness - Data of Consult Requesting Physician: Dalton Hagen - Consult Narrative History of present illness: Ms. Jesus is a 82 year old female - Constitutional Vitals: Temp Pulse Resp BP Pulse Ox 98.8 F 90 18 124/60 98 07/07/17 14:50 07/07/17 17:00 07/07/17 17:00 07/07/17 17:00 07/07/17 17:00 Results - Labs CBC & Chem 7: 07/07/17 04:44 07/07/17 04:44 Labs: Last Result Calcium 10.6 mg/dL (8.6-10.3) H 07/07/17 04:44 Entire Visit Hgb 12.0 g/dL (11.5-15.4) 07/07/17 04:44 Hct 38.3 % (35.3-44.9) 07/07/17 04:44 PT 13.0 Seconds (9.4-12.1) H 07/07/17 04:44 Total Bilirubin 3.2 mg/dL (0.3-1.0) H 07/07/17 04:44 AST 142 Units/L (13-39) H 07/07/17 04:44 ALT 23 Units/L (7-52) 07/07/17 04:44 Lipase 584 Units/L (11-82) H 07/07/17 04:44 - ABG ABG results: PT/INR, D-dimer PT 13.0 Seconds (9.4-12.1) H 07/07/17 04:44 - Impressions Impressions Cath/Invasive Procedure 01/15/18 13:15 IMPRESSION: Intraoperative fluoroscopy provided. Please refer to the procedure report for further details. D/ / Nathanael Sotomayor MD / Nathanael Sotomayor MD Interpreting Provider: Nathanael Sotomayor MD - Attending Attestation I examined this patient and my medical decision-making was reviewed with the Resident Physician. I agree with the documented findings, disposition and treatment plan as described except to the extent set forth below. Patient 82-year-old female presented with abdominal pain and abnormal LFTs with prominent CBD and PD and high white count . concern is for a acute cholangitis along with acute cholecystitis. CT scan reviewed with Dr. Garcia from Radiology. Concern is that the MRI can miss a small stone at the ampulla. we will go ahead and do an ERCP.
--- NOTE | 2017-07-07 13:44 | Electrocardiograph Report ---
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
[2017-07-07] MEDS: Diltiazem CD (24hr) 180 MG CAPSULE PO SCH (16:05)
[2017-07-07] MEDS: Aspirin Enteric Coated 81 MG Tablet PO SCH (16:05)
[2017-07-07] MEDS: Carbidopa/Levodopa ER 50/200 TABLET PO SCH ×2 (16:06→21:35)
[2017-07-08] MEDS: 0.9 % Sodium Chloride 1,000 ML IVC SCH (05:26)
[2017-07-08 07:38] LABS: INR 1.2; Prothrombin Time 13.4 Seconds (9.4-12.1)
[2017-07-08 07:40] LABS: Activated Partial Thrombo Time 26.7 Seconds (26.0-36.0)
[2017-07-08] MEDS: Carbidopa/Levodopa ER 50/200 TABLET PO SCH ×3 (07:42→20:09)
[2017-07-08] MEDS: Aspirin Enteric Coated 81 MG Tablet PO SCH (07:42)
[2017-07-08] MEDS: Diltiazem CD (24hr) 180 MG CAPSULE PO SCH (07:42)
[2017-07-08] MEDS: MetroNIDAZOLE 500 MG/100 ML 500 MG/100 ML BAG IVPB SCH ×2 (07:42→16:17)
[2017-07-08 08:41] LABS: Basophils % 0.1 %; Hematocrit 32.3 % (35.3-44.9); Hemoglobin 9.8 g/dL (11.5-15.4); Immature Granulocytes % 0.8 % (0-4); Immature Platelets 2.3 % (1.1-6.1); Lymphocytes # 1.3 K/mcL (0.6-4.6); Lymphocytes % 9.3 %; Mean Corpuscular HGB Conc 30.3 g/dL (31.6-35.5); Mean Corpuscular Hemoglobin 30.3 pg (28.0-33.3); Mean Platelet Volume 9.8 fL (9.4-12.4); Monocytes # 0.8 K/mcL (0.0-1.3); Monocytes % 5.9 %; Neutrophils # 11.9 K/mcL (1.6-8.9); Platelet Count 240 K/mcL (140-400); Red Blood Count 3.23 M/mcL (3.82-4.97); Red Cell Distribution Width 16.1 % (11.5-14.5); Segmented Neutrophils % 83.9 %
--- NOTE | 2017-07-08 10:01 | Internal Med Progress Note ---
Date of Encounter: 07/08/17 Time of Encounter: 09:59 - Assessment and plan (1) Ascending cholangitis Current Visit: Yes Status: Acute Assessment and plan: Status post ERCP with sphincterotomy and stent placement. Appreciate GI input. Continue nothing by mouth. Follow LFTs, bilirubin daily. Bilirubin trended down to 1.0 from 3.2 yesterday. Continue with broad-spectrum IV antibiotic with Cipro and Flagyl. (2) Pancreatitis Current Visit: Yes Status: Acute Assessment and plan: Likely gallstone pancreatitis. Lipase was elevated at 584. Continue nothing by mouth. Supportive care. Pain control. IV hydration. Repeat lipase in the morning. Appreciate surgery input. Plan for cholecystectomy today. Qualifiers: Chronicity: acute Pancreatitis type: biliary Acute pancreatitis complication: no infection or necrosis Qualified Code(s): K85.10 - Biliary acute pancreatitis without necrosis or infection (3) DVT prophylaxis Current Visit: No Status: Acute Assessment and plan: Subcutaneous heparin. 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 Fall precautions. Continue with Sinemet. Qualifiers: Dementia behavioral disturbance: without behavioral disturbance Qualified Code(s): G20 - Parkinson's disease; F02.80 - Dementia in other diseases classified elsewhere without behavioral disturbance; F02.80 - Dementia in other diseases classified elsewhere without behavioral disturbance; F02.80 - Dementia in other diseases classified elsewhere without behavioral disturbance - Subjective Interval history: Patient cannot provide history due to advanced dementia. She is currently in no acute distress but minimally verbal. Patient's nurse there has been no noted vomiting, she has not been complaining of pain. - Constitutional Vitals: Temp Pulse Resp BP Pulse Ox 98.2 F 88 14 163/80 97 07/08/17 07:37 07/08/17 08:03 07/08/17 08:02 07/08/17 08:02 07/08/17 08:02 General appearance: Present: A&O X 1 - Head Head exam: Present: atraumatic, normocephalic - Respiratory Respiratory exam: Present: decreased breath sounds, CTAB. Absent: accessory muscle use, rales, rhonchi, wheezes - Cardiovascular Cardiovascular exam: Present: RRR, +S1, +S2. Absent: diastolic murmur, gallop, rubs, systolic murmur - GI/Abdominal GI/Abdominal exam: Present: normal bowel sounds, soft, no peritoneal signs. Absent: distended, tenderness - Extremities Exam Extremities exam: Present: warm, radial pulses palpable and symmetrical. Absent : calf tenderness, cyanotic, pedal edema - Skin Skin exam: Present: dry, intact Internal Medicine: Result - Labs CBC & Chem 7: 07/08/17 08:32 07/08/17 09:38 Labs: Short CBC 07/08/17 Range/Units 08:32 WBC 14.1 H (4.3-11.1) K/mcL Hgb 9.8 L D (11.5-15.4) g/dL Hct 32.3 L (35.3-44.9) % Plt Count 240 (140-400) K/mcL Neutrophils # 11.9 H (1.6-8.9) K/mcL - ABG Interpretation ABG results: PT/INR, D-dimer PT 13.4 Seconds (9.4-12.1) H 07/08/17 07:17 - Impressions Impressions Cath/Invasive Procedure 07/07/17 13:15 IMPRESSION: Intraoperative fluoroscopy provided. Please refer to the procedure report for further details. D/ / Nathanael Sotomayor MD / Nathanael Sotomayor MD Interpreting Provider: Nathanael Sotomayor MD - VTE Documentation of Mechanical Device: Venous foot pump, device Consult Discharge Plan - Plan Referrals: Virgilio Delcid Jr, MD [Primary Care Provider] -
[2017-07-08 11:10] LABS: Alanine Aminotransferase 17 Units/L (7-52); Albumin 2.7 g/dL (3.5-5.7); Albumin/Globulin Ratio 1.1 (1.1-2.2); Alkaline Phosphatase 120 Units/L (34-104); Aspartate Amino Transferase 27 Units/L (13-39); BUN/Creatinine Ratio 32 (6-26); Blood Urea Nitrogen 31 mg/dL (8-23); Carbon Dioxide 28 mEq/L (23-29); Chloride 110 mEq/L (98-107); Globulin 2.5 g/dL (2.4-3.5); Glucose 82 mg/dL (70-105); Magnesium 1.6 mg/dL (1.6-2.6); Osmolality,Calculated 302 (280-300); Phosphorous 2.4 mg/dL (2.7-4.5); Potassium 3.9 mEq/L (3.5-5.1); Sodium 143 mEq/L (136-145); Total Protein 5.2 g/dL (6.4-8.9); eGFR For African Americans > 60 (> 60); eGFR For Non-African Americans 55 (> 60)
--- NOTE | 2017-07-08 13:10 | General Surgery Progress Note ---
Date of Encounter: 07/08/17 Time of Encounter: 09:45 - Assessment and Plan (1) Abdominal pain Current Visit: Yes Status: Acute 82F with intermittent abdominal pain, tender on exam along the R side, sonographic evidence of acute cholecystitis, s/p ERCP with decompression; unable to cannulate cystic duct; NPO cont abx will discuss with patient and family member concerning surgery; ideally will plan for surgery today; Qualifiers: Abdominal location: right upper quadrant Qualified Code(s): R10.11 - Right upper quadrant pain Subjective Patient reports: no new complaints, feels better, still having pain Objective Vital Signs - Last 8 Hours Temp Pulse Resp BP Pulse Ox 07/08/17 13:00 92 20 152/89 98 07/08/17 11:44 97.7 F 07/08/17 11:00 94 07/08/17 10:00 93 16 172/79 96 07/08/17 08:03 88 07/08/17 08:02 93 14 163/80 97 07/08/17 07:37 98.2 F 07/08/17 07:00 90 16 153/81 91 07/08/17 05:23 97.7 F Intake and Output 07/07/17 07/08/17 07/08/17 23:59 07:59 15:59 Intake Total 300 / 300 1200 / 1200 100 / 100 Output Total 75 / 75 350 / 350 200 / 200 Balance 225 / 225 850 / 850 -100 / -100 Intake: IV Fluids 300 / 300 1200 / 1200 100 / 100 0.9 % Sodium Chloride 1,000 ML 1000 / 1000 @ 70 mls/hr IVC .[id number] [facility] Rx #:[id number] Cipro Premix 200 MG/100 ML 200 100 / 100 100 / 100 mg In 100 ml @ 100 mls/hr IVPB Q12HR [facility] Rx#:[id number] Flagyl Premix 500 MG/100 ML 500 200 / 200 100 / 100 100 / 100 mg In 100 ml @ 100 mls/hr IVPB Q8H [facility] Rx#:[id number] Output: Catheter 75 / 75 350 / 350 200 / 200 Other: Weight 50.6 kg 50.6 kg Patient Weight 07/08/17 23:59 Weight 50.6 kg - General physical appearance well developed - Eyes normal ocular movement - Neck Neck exam: no lymphadectomy - Respiratory normal expansion, normal respiratory effort - Cardiovascular Cardiovascular exam: Present: RRR - Abdomen Abdomen: Present: soft, tender Abdominal Tenderness: epigastic, RUQ - Neurologic CN 2-12 grossly intact - Labs 07/08/17 08:32 07/08/17 09:38 Diabetes panel 07/08/17 Range/Units 09:38 Sodium 143 (136-145) mEq/L Potassium 3.9 (3.5-5.1) mEq/L Chloride 110 H (98-107) mEq/L Carbon Dioxide 28 (23-29) mEq/L BUN 31 H (8-23) mg/dL Creatinine 0.97 (0.60-1.20) mg/dL Glucose 82 (70-105) mg/dL Calcium 9.0 (8.6-10.3) mg/dL AST 27 (13-39) Units/L ALT 17 (7-52) Units/L Alkaline Phosphatase 120 H (34-104) Units/L Albumin 2.7 L (3.5-5.7) g/dL Calcium panel 07/08/17 Range/Units 09:38 Calcium 9.0 (8.6-10.3) mg/dL Phosphorus 2.4 L (2.7-4.5) mg/dL Albumin 2.7 L (3.5-5.7) g/dL Pituitary panel 07/08/17 Range/Units 09:38 Sodium 143 (136-145) mEq/L Potassium 3.9 (3.5-5.1) mEq/L Chloride 110 H (98-107) mEq/L Carbon Dioxide 28 (23-29) mEq/L BUN 31 H (8-23) mg/dL Creatinine 0.97 (0.60-1.20) mg/dL Glucose 82 (70-105) mg/dL Calcium 9.0 (8.6-10.3) mg/dL Adrenal panel 07/08/17 Range/Units 09:38 Sodium 143 (136-145) mEq/L Potassium 3.9 (3.5-5.1) mEq/L Chloride 110 H (98-107) mEq/L Carbon Dioxide 28 (23-29) mEq/L BUN 31 H (8-23) mg/dL Creatinine 0.97 (0.60-1.20) mg/dL Glucose 82 (70-105) mg/dL Calcium 9.0 (8.6-10.3) mg/dL Total Bilirubin 1.0 (0.3-1.0) mg/dL AST 27 (13-39) Units/L ALT 17 (7-52) Units/L Alkaline Phosphatase 120 H (34-104) Units/L Albumin 2.7 L (3.5-5.7) g/dL - VTE Documentation of Mechanical Device: Venous foot pump, device Consult Discharge Plan - Plan Referrals: Virgilio Delcid Jr, MD [Primary Care Provider] -
--- NOTE | 2017-07-08 22:15 | Anesthesia Evaluation PreOp ---
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 (dementia from Parkinson's disease) Other Medical History: Renal (ckd), Other (pancreatitis this admission) Alcohol Use: none Drug use: none Medications and Allergies Aspirin Enteric Coated [Aspirin EC] 81 mg PO DAILY #30 tablet.dr 03/08/15 [Rx] Calcitriol [Rocaltrol] 0.25 mcg PO DAILY #30 capsule 03/08/15 [Rx] Diltiazem HCl [Diltiazem ER] 180 mg PO DAILY 04/28/17 [History] Quetiapine Fumarate [Seroquel] 12.5 mg PO HS #30 tablet 05/04/17 [Rx] Ipratropium/Albuterol Neb [Duoneb] 3 ml IH [id number] PRN #30 inhsol 05/05/17 [Rx] Carbidopa/Levodopa ER 50/200 [Sinemet ER 50-200 Tab] 1 tab PO TID 07/08/17 [ History] 3 Allergy/AdvReac Type Severity Reaction Status Date / Time No Known Allergies Allergy Verified 07/08/17 13:54 - Meds/Allergy Pre-op Review Medications Reviewed: Yes Allergies Reviewed: Yes Beta Blockers on Current Med List: No Anesthesia Results - Labs 07/09/17 10:53 07/09/17 10:53 - Imaging EKG: report reviewed, image reviewed (SINUS RHYTHM WITH OCCASIONAL SUPRAVENTRICULAR PREMATURE COMPLEXES NONSPECIFIC T-WAVE ABNORMALITY) Additional studies: TTE: Impressions: LVEF 60%. Mild concentric left ventricular hypertrophy. Mild left ventricular diastolic dysfunction. Normal right ventricular structure and function. No evidence of pulmonary hypertension. No significant valvular dysfunction. Anesthesia Exam Last Vital Signs Temp 99.1 F 07/08/17 20:31 Pulse 96 07/08/17 19:50 Resp 20 07/08/17 19:50 BP 150/85 07/08/17 19:50 Pulse Ox 93 07/08/17 19:50 Weight: 51 kg - HEENT Pupil (Motor): Pupils equal, EOMI Mallampati: III Teeth: Edentulous Oral Opening: Greater than 3 - ELEVATOR REPAIRER APPRENTICE LOC: Disoriented ELEVATOR REPAIRER APPRENTICE Motor: Normal RUE, Normal LUE, Normal RLE, Normal LLE, Normal Face ELEVATOR REPAIRER APPRENTICE Sensory: Normal: RUE, LUE, RLE, LLE, Face - Cardiac Rhythm: Regular - Pulmonary Breath Sounds: bilateral Clear Respiratory Effort: Symmetrical Anesthesia Assess/Plan ASA Score: 4 Modified [place] Scale for Level of Consciousness: Cooperative, oriented, and tranquil Anesthetic Plan: General Monitoring Plan: Standard Monitors Recovery Plan: PACU
[2017-07-09] MEDS: MetroNIDAZOLE 500 MG/100 ML 500 MG/100 ML BAG IVPB SCH ×3 (00:55→17:50)
[2017-07-09] MEDS: *HR* Heparin 5,000 UNIT/ML VIAL SQ SCH ×2 (05:11→17:50)
[2017-07-09 05:20] LABS: Hematocrit 29.9 % (35.3-44.9); Hemoglobin 9.2 g/dL (11.5-15.4); Immature Granulocytes % 0.3 % (0-4); Lymphocytes # 1.3 K/mcL (0.6-4.6); Mean Corpuscular HGB Conc 30.8 g/dL (31.6-35.5); Mean Corpuscular Hemoglobin 30.5 pg (28.0-33.3); Mean Platelet Volume 9.6 fL (9.4-12.4); Monocytes # 0.8 K/mcL (0.0-1.3); Monocytes % 6.3 %; Neutrophils # 10.1 K/mcL (1.6-8.9); Platelet Count 251 K/mcL (140-400); Red Blood Count 3.02 M/mcL (3.82-4.97); Red Cell Distribution Width 15.9 % (11.5-14.5); Segmented Neutrophils % 82.4 %
[2017-07-09 05:35] LABS: Alanine Aminotransferase 9 Units/L (7-52); Albumin 2.5 g/dL (3.5-5.7); Alkaline Phosphatase 107 Units/L (34-104); Aspartate Amino Transferase 15 Units/L (13-39); BUN/Creatinine Ratio 31 (6-26); Bilirubin,Total 0.8 mg/dL (0.3-1.0); Blood Urea Nitrogen 22 mg/dL (8-23); Calcium 8.9 mg/dL (8.6-10.3); Carbon Dioxide 28 mEq/L (23-29); Chloride 111 mEq/L (98-107); Globulin 2.5 g/dL (2.4-3.5); Glucose 82 mg/dL (70-105); Lipase 7 Units/L (11-82); Osmolality,Calculated 300 (280-300); Sodium 144 mEq/L (136-145); eGFR For African Americans > 60 (> 60); eGFR For Non-African Americans > 60 (> 60)
[2017-07-09] MEDS: Aspirin Enteric Coated 81 MG Tablet PO SCH (06:58)
[2017-07-09] MEDS: Carbidopa/Levodopa ER 50/200 TABLET PO SCH ×3 (06:59→20:18)
[2017-07-09] MEDS: Diltiazem CD (24hr) 180 MG CAPSULE PO SCH (08:15)
--- NOTE | 2017-07-09 11:35 | General Surgery Progress Note ---
Date of Encounter: 07/09/17 Time of Encounter: 10:30 - Assessment and Plan (1) Abdominal pain Current Visit: Yes Status: Acute 82F with intermittent abdominal pain, tender on exam along the R side, sonographic evidence of acute cholecystitis, s/p ERCP with decompression; unable to cannulate cystic duct; OR today Qualifiers: Abdominal location: right upper quadrant Qualified Code(s): R10.11 - Right upper quadrant pain Subjective Patient reports: no new complaints Objective Vital Signs - Last 8 Hours Temp Pulse Resp BP Pulse Ox 07/09/17 10:00 86 18 152/73 96 07/09/17 08:00 99.1 F 07/09/17 07:04 78 07/09/17 07:00 78 18 144/65 92 07/09/17 05:00 97.9 F Intake and Output 07/08/17 07/09/17 07/09/17 23:59 07:59 15:59 Intake Total 200 / 200 200 / 200 200 / 200 Output Total 575 / 575 200 / 200 100 / 100 Balance -375 / -375 0 / 0 100 / 100 Intake: IV Fluids 200 / 200 200 / 200 200 / 200 Cipro Premix 200 MG/100 ML 200 100 / 100 100 / 100 mg In 100 ml @ 100 mls/hr IVPB Q12HR [facility] Rx#:[id number] Flagyl Premix 500 MG/100 ML 500 100 / 100 100 / 100 100 / 100 mg In 100 ml @ 100 mls/hr IVPB Q8H [facility] Rx#:[id number] Potassium Chloride 10 mEq/100mL 100 / 100 10 meq In 100 ml @ 100 mls/hr IVPB Q1H PRN Rx#:[id number] Output: Catheter 575 / 575 200 / 200 100 / 100 Other: Weight 51.5 kg 51.5 kg Patient Weight 07/09/17 23:59 Weight 51.5 kg - General physical appearance no distress - Respiratory normal expansion - Cardiovascular Cardiovascular exam: Present: RRR - Abdomen Abdomen: Present: soft, tender Abdominal Tenderness: epigastic, RUQ - Neurologic CN 2-12 grossly intact - Psychiatric oriented to time, oriented to person, oriented to place - Labs 07/09/17 05:05 07/09/17 05:05 Diabetes panel 07/09/17 Range/Units 05:05 Sodium 144 (136-145) mEq/L Potassium 3.0 L (3.5-5.1) mEq/L Chloride 111 H (98-107) mEq/L Carbon Dioxide 28 (23-29) mEq/L BUN 22 (8-23) mg/dL Creatinine 0.72 (0.60-1.20) mg/dL Glucose 82 (70-105) mg/dL Calcium 8.9 (8.6-10.3) mg/dL AST 15 (13-39) Units/L ALT 9 (7-52) Units/L Alkaline Phosphatase 107 H (34-104) Units/L Albumin 2.5 L (3.5-5.7) g/dL Calcium panel 07/09/17 Range/Units 05:05 Calcium 8.9 (8.6-10.3) mg/dL Albumin 2.5 L (3.5-5.7) g/dL Pituitary panel 07/09/17 Range/Units 05:05 Sodium 144 (136-145) mEq/L Potassium 3.0 L (3.5-5.1) mEq/L Chloride 111 H (98-107) mEq/L Carbon Dioxide 28 (23-29) mEq/L BUN 22 (8-23) mg/dL Creatinine 0.72 (0.60-1.20) mg/dL Glucose 82 (70-105) mg/dL Calcium 8.9 (8.6-10.3) mg/dL Adrenal panel 07/09/17 Range/Units 05:05 Sodium 144 (136-145) mEq/L Potassium 3.0 L (3.5-5.1) mEq/L Chloride 111 H (98-107) mEq/L Carbon Dioxide 28 (23-29) mEq/L BUN 22 (8-23) mg/dL Creatinine 0.72 (0.60-1.20) mg/dL Glucose 82 (70-105) mg/dL Calcium 8.9 (8.6-10.3) mg/dL Total Bilirubin 0.8 (0.3-1.0) mg/dL AST 15 (13-39) Units/L ALT 9 (7-52) Units/L Alkaline Phosphatase 107 H (34-104) Units/L Albumin 2.5 L (3.5-5.7) g/dL - VTE Documentation of Mechanical Device: Venous foot pump, device Consult Discharge Plan - Plan Referrals: Virgilio Delcid Jr, MD [Primary Care Provider] -
[2017-07-09 12:10] LABS: Basophils % 0.2 %; Eosinophils % 0.2 %; Hematocrit 32.5 % (35.3-44.9); Hemoglobin 10.1 g/dL (11.5-15.4); Immature Granulocytes % 0.6 % (0-4); Lymphocytes # 1.5 K/mcL (0.6-4.6); Lymphocytes % 11.6 %; Mean Corpuscular HGB Conc 31.1 g/dL (31.6-35.5); Mean Corpuscular Hemoglobin 30.3 pg (28.0-33.3); Mean Corpuscular Volume 97.6 fL (83.0-100.0); Mean Platelet Volume 11.1 fL (9.4-12.4); Monocytes # 0.8 K/mcL (0.0-1.3); Monocytes % 6.2 %; Neutrophils # 10.2 K/mcL (1.6-8.9); Platelet Count 236 K/mcL (140-400); Red Blood Count 3.33 M/mcL (3.82-4.97); Red Cell Distribution Width 15.9 % (11.5-14.5); Segmented Neutrophils % 81.2 %
[2017-07-09 12:14] LABS: BUN/Creatinine Ratio 31 (6-26); Blood Urea Nitrogen 21 mg/dL (8-23); Calcium 8.9 mg/dL (8.6-10.3); Carbon Dioxide 27 mEq/L (23-29); Chloride 111 mEq/L (98-107); Glucose 82 mg/dL (70-105); Magnesium 1.5 mg/dL (1.6-2.6); Osmolality,Calculated 298 (280-300); Potassium 4.1 mEq/L (3.5-5.1); Sodium 143 mEq/L (136-145); eGFR For African Americans > 60 (> 60); eGFR For Non-African Americans > 60 (> 60)
[2017-07-09] MEDS ORDERED: *HR* Propofol 200 MG/20 ML VIAL IVP ONE (14:11)
[2017-07-09] MEDS ORDERED: *HR* FentaNYL (PF) 100 MCG/2 ML VIAL ONE (14:11)
[2017-07-09] MEDS ORDERED: *HR* Rocuronium Bromide 50 MG/5 ML VIAL ONE (14:12)
[2017-07-09] MEDS ORDERED: Lidocaine -MPF 2% 2 ML VIAL ONE ×2 (14:12→15:26)
[2017-07-09] MEDS ORDERED: Ondansetron 4 MG/2 ML VIAL ONE (14:12)
[2017-07-09] MEDS ORDERED: Albumin Human 5% 0 GM/0 ML VIAL ONE (14:51)
[2017-07-09] MEDS ORDERED: Dexamethasone 4 MG/ML VIAL ONE (14:59)
[2017-07-09] MEDS ORDERED: *HR* Promethazine 25 MG/ML VIAL IVP PRN ×2 (15:50→18:08)
[2017-07-09] MEDS ORDERED: *HR* Morphine 2 MG/ML SYRINGE IVP PRN ×2 (15:50→18:08)
[2017-07-09] MEDS ORDERED: Neostigmine Methylsulfate 3 MG/3 ML SYRINGE ONE (16:06)
--- NOTE | 2017-07-09 16:57 | Operative Note ---
Date of procedure: 07/09/17 Pre-op diagnosis: acute cholecystitis and ascending cholangitis Post-op diagnosis: other (gangrenous cholecystitis and ascending cholangitis) Procedure: laparoscopic cholecystectomy Complications: none Anesthesia: GETA Local Anesthetics: 0.5% Sensorcaine HCL SubQ (cc) Surgeon: Damon Gonzalez Was there an quality control assistant present: Yes Insulation Hoseman: Enedelia Romano Estimated blood loss (cc): 20 Specimen: gallbladder and contents Condition: stable Disposition: PACU Procedure in Detail: The patient was brought into the operating room suite and was placed in the supine position. Mechanical DVT prophylaxis was applied. A time-in was conducted. The patient underwent smooth induction of anesthesia. Preoperative antibiotics were given. The patient was prepped and draped in the usual fashion. A time-out was held identifying the correct patient, pathology, and procedure. Everyone was in agreement and we began the procedure. Incision to Dissection I started by creating a 10mm supraumbilical incision. Via open Carter technique I did enter into the abdomen. Using a Vicryl on a UR-6 needle, I reapproximated, but did not close the fascia in a [id number] fashion. I inserted the 10mm, 30 degree camera, ensured that I did not cause intraabdominal injury upon entry, and quickly identified the gallbladder. It does possess multiple areas of necrosis consistent with gangrenous/necrotic gallbladder. I created a 5mm incision in the epigastric region followed by two more 5mm incision, one at the midclavicular line, the last at the anterior axillary line. Using laparoscopic graspers I managed to elevate the gallbladder above the liver. I grasp the edge of the gallbladder to retract laterally. Using the [place] instrument as well as the hook-electrocautery, I dissected out the cystic duct and the cystic artery. I excised the posterior tissue to visualize the liver. I was able to clearly visualize the critical view of safety. Critical view of Safety to Excison of the gallbladder I then clipped both structures using metal clips, two on the stay side, one on the specimen side. Using laparoscopic scissors, I cut between the clip on the specimen side and the first clip on the stay side. Then using tension and counter-tension, I used the electrocautery to excise the gallbladder off of the liver bed. It shoudl be stated that the gallbladder was peeling off the liver bed iwth minimal effort. Therefore there was a lot of oozing from the liver bed. All of which was controlled with electrocautery. Before complete excision , I evaluated the liver bed once more to ensure there 1.) there was no bleeding , 2. No excessive bile leakage, and 3.) to evaluate my clips. There was no bleeding, bile leakage, and the clips were all the way across both duct and artery. Removal of gallbladder to Closure I switched out the 10mm camera fo the 5mm camera and inserted the endocatch bag into the umbilical port. I placed the specimen into the bag and retrieved it through the umbilical port. I replaced the 5mm camera with the 10mm camera, irrgiated the liver bed and above the liver before suctioning both irrigation fluid and air. I removed the 5mm ports, turned off the insufllation, then removed the 10mm umbilical port. I then close the umbilical fascia using the vicryl suture from the start. All incisions were closed with interrupted 4-0 monocryl and sealed with dermabond. The patient tolerated the procedure well and went back to PACU in stable condition.
[2017-07-09] MEDS ORDERED: Ondansetron 4 MG/2 ML VIAL IVP PRN (18:08)
[2017-07-09] MEDS ORDERED: Naloxone 0.4 MG/ML INJ IVP PRN (18:08)
--- NOTE | 2017-07-09 18:08 | Anesthesia Evaluation Post Op ---
Date of Encounter: 07/09/17 Time of Encounter: 18:07 - Vital Signs Vital Signs: Vital Signs/O2 Sat, Most Current Temp Pulse Resp BP Pulse Ox 97.2 F L 81 20 137/68 97 07/09/17 17:51 07/09/17 18:01 07/09/17 18:01 07/09/17 18:01 07/09/17 18:01 - Lungs Lungs: Clear Ascult./Percussion - Airway Airway: Non-obstructed - Cardiovascular Regular Rate - Mental Status Mental Status: Confused, Baseline Status - Pain Pain Scale: 0 Pain Scale used: Numeric (1 - 10) - Nausea Vomiting Nausea Vomiting: Not Present - Hydration Hydration: NPO, Tijer[place] catheter - Discharge PostOp Status: Transfer Patient to floor
--- NOTE | 2017-07-09 18:39 | Internal Med Progress Note ---
Date of Encounter: 07/09/17 Time of Encounter: 13:00 - Assessment and plan (1) Ascending cholangitis Current Visit: Yes Status: Acute Assessment and plan: Status post ERCP with sphincterotomy and stent placement. Appreciate GI input. Continue nothing by mouth. Follow LFTs, bilirubin daily. Bilirubin continues to trend down. Continue with broad-spectrum IV antibiotic with Cipro and Flagyl. (2) Pancreatitis Current Visit: Yes Status: Acute Assessment and plan: Likely gallstone pancreatitis. Lipase was elevated at 584. Continue nothing by mouth. Supportive care. Pain control. IV hydration. Repeat lipase in the morning. Appreciate surgery input. Plan for cholecystectomy today. Qualifiers: Chronicity: acute Pancreatitis type: biliary Acute pancreatitis complication: no infection or necrosis Qualified Code(s): K85.10 - Biliary acute pancreatitis without necrosis or infection (3) DVT prophylaxis Current Visit: No Status: Acute Assessment and plan: Subcutaneous heparin. 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 Fall precautions. Continue with Sinemet. Qualifiers: Dementia behavioral disturbance: without behavioral disturbance Qualified Code(s): G20 - Parkinson's disease; F02.80 - Dementia in other diseases classified elsewhere without behavioral disturbance; F02.80 - Dementia in other diseases classified elsewhere without behavioral disturbance; F02.80 - Dementia in other diseases classified elsewhere without behavioral disturbance (5) Hypokalemia Current Visit: Yes Status: Acute Assessment and plan: Replete with IV potassium (6) Hypomagnesemia Current Visit: Yes Status: Acute Assessment and plan: Replete with IV magnesium sulfate. - Subjective Interval history: Patient cannot provide history due to advanced dementia. She is currently in no acute distress but minimally verbal. Patient's nurse there has been no noted vomiting, she has not been complaining of pain. She was an add-on for the OR schedule yesterday however her procedure which was pushed back to today. She still awaiting surgery. - Constitutional Vitals: Temp Pulse Resp BP Pulse Ox 97.2 F L 80 16 137/65 91 07/09/17 17:51 07/09/17 18:25 07/09/17 18:25 07/09/17 18:25 07/09/17 18:25 General appearance: Present: A&O X 1 - Eye Eye exam: Present: PERRL, conjuntiva pink, sclera anicteric Pupils: Present: PERRL - Respiratory Respiratory exam: Present: CTAB. Absent: accessory muscle use, rales, rhonchi, wheezes - Cardiovascular Cardiovascular exam: Present: RRR, +S1, +S2. Absent: diastolic murmur, gallop, rubs, systolic murmur - GI/Abdominal GI/Abdominal exam: Present: normal bowel sounds, soft, no peritoneal signs. Absent: distended, tenderness - Extremities Exam Extremities exam: Present: warm, radial pulses palpable and symmetrical. Absent : calf tenderness, cyanotic, pedal edema - Skin Skin exam: Present: dry, intact Internal Medicine: Result - Labs CBC & Chem 7: 07/09/17 10:53 07/09/17 10:53 Labs: Short CBC 07/09/17 07/09/17 Range/Units 05:05 10:53 WBC 12.2 H 12.6 H (4.3-11.1) K/mcL Hgb 9.2 L 10.1 L (11.5-15.4) g/dL Hct 29.9 L 32.5 L (35.3-44.9) % Plt Count 251 236 (140-400) K/mcL Neutrophils # 10.1 H 10.2 H (1.6-8.9) K/mcL BMP 07/09/17 07/09/17 05:05 10:53 Sodium 144 143 Potassium 3.0 L 4.1 D Chloride 111 H 111 H Carbon Dioxide 28 27 BUN 22 21 Creatinine 0.72 0.67 Glucose 82 82 Calcium 8.9 8.9 Liver Function 07/09/17 Range/Units 05:05 Total Bilirubin 0.8 (0.3-1.0) mg/dL AST 15 (13-39) Units/L ALT 9 (7-52) Units/L Alkaline Phosphatase 107 H (34-104) Units/L Albumin 2.5 L (3.5-5.7) g/dL - ABG Interpretation ABG results: PT/INR, D-dimer PT 13.4 Seconds (9.4-12.1) H 07/08/17 07:17 - VTE Documentation of Mechanical Device: Venous foot pump, device Consult Discharge Plan - Plan Referrals: Virgilio Delcid Jr, MD [Primary Care Provider] -
[2017-07-10] MEDS: MetroNIDAZOLE 500 MG/100 ML 500 MG/100 ML BAG IVPB SCH ×3 (00:19→17:01)
[2017-07-10] MEDS: *HR* Heparin 5,000 UNIT/ML VIAL SQ SCH ×2 (05:02→18:24)
[2017-07-10] MEDS: Aspirin Enteric Coated 81 MG Tablet PO SCH (07:43)
[2017-07-10] MEDS: Carbidopa/Levodopa ER 50/200 TABLET PO SCH ×3 (07:44→19:29)
[2017-07-10] MEDS ORDERED: Diltiazem CD (24hr) 180 MG CAPSULE PO SCH (09:00)
[2017-07-10 09:04] LABS: Basophils % 0.1 %; Hematocrit 29.8 % (35.3-44.9); Immature Granulocytes % 0.6 % (0-4); Lymphocytes # 0.7 K/mcL (0.6-4.6); Lymphocytes % 8.1 %; Mean Corpuscular HGB Conc 30.2 g/dL (31.6-35.5); Mean Corpuscular Hemoglobin 30.4 pg (28.0-33.3); Mean Corpuscular Volume 100.7 fL (83.0-100.0); Mean Platelet Volume 9.3 fL (9.4-12.4); Monocytes # 0.3 K/mcL (0.0-1.3); Monocytes % 3.7 %; Neutrophils # 7.3 K/mcL (1.6-8.9); Platelet Count 241 K/mcL (140-400); Red Blood Count 2.96 M/mcL (3.82-4.97); Segmented Neutrophils % 87.5 %
--- NOTE | 2017-07-10 09:11 | General Surgery Progress Note ---
Date of Encounter: 07/10/17 Time of Encounter: 09:09 - Assessment and Plan (1) Abdominal pain Current Visit: Yes Status: Acute 82F POD#1 s/p lap nelson 2/2 gangrenous cholecystitis complicated by ascending cholangitis; diet as tolerated pain control with PO pain meds cares per primary follow up in 2 weeks after d/c Please call with any questions or new concerns Qualifiers: Abdominal location: right upper quadrant Qualified Code(s): R10.11 - Right upper quadrant pain Subjective Patient reports: no new complaints, afebrile Objective Vital Signs - Last 8 Hours Temp Pulse Resp BP Pulse Ox 07/10/17 08:34 98.4 F 07/10/17 08:00 83 18 115/51 98 07/10/17 07:00 82 07/10/17 06:00 80 22 102/69 99 07/10/17 04:53 98.6 F 07/10/17 03:49 71 20 84/49 96 07/10/17 02:48 68 07/10/17 02:00 76 16 83/50 98 Intake and Output 07/09/17 07/10/17 07/10/17 23:59 07:59 15:59 Intake Total 0 / 0 300 / 300 Output Total 95 / 95 125 / 125 Balance -95 / -95 175 / 175 Intake: IV Fluids 300 / 300 Cipro Premix 400 MG/200 ML 400 200 / 200 mg In 200 ml @ 200 mls/hr IVPB Q12HR [facility] Rx#:[id number] Flagyl Premix 500 MG/100 ML 500 100 / 100 mg In 100 ml @ 100 mls/hr IVPB Q8H [facility] Rx#:[id number] Oral 0 / 0 0 / 0 Output: Urine 0 / 0 Estimated Blood Loss 20 / 20 Catheter 75 / 75 125 / 125 Other: Blood Glucose* 109 - General physical appearance no distress - Eyes other (no scleral icterus) - Respiratory normal expansion, normal respiratory effort - Cardiovascular Cardiovascular exam: Present: RRR - Abdomen Abdomen: Present: soft (non voluntary guarding) - Incision Incision: Present: clean and dry, intact - Neurologic CN 2-12 grossly intact - Labs 07/10/17 08:53 07/09/17 10:53 Diabetes panel 07/09/17 Range/Units 10:53 Sodium 143 (136-145) mEq/L Potassium 4.1 D (3.5-5.1) mEq/L Chloride 111 H (98-107) mEq/L Carbon Dioxide 27 (23-29) mEq/L BUN 21 (8-23) mg/dL Creatinine 0.67 (0.60-1.20) mg/dL Glucose 82 (70-105) mg/dL Calcium 8.9 (8.6-10.3) mg/dL Calcium panel 07/09/17 Range/Units 10:53 Calcium 8.9 (8.6-10.3) mg/dL Pituitary panel 07/09/17 Range/Units 10:53 Sodium 143 (136-145) mEq/L Potassium 4.1 D (3.5-5.1) mEq/L Chloride 111 H (98-107) mEq/L Carbon Dioxide 27 (23-29) mEq/L BUN 21 (8-23) mg/dL Creatinine 0.67 (0.60-1.20) mg/dL Glucose 82 (70-105) mg/dL Calcium 8.9 (8.6-10.3) mg/dL Adrenal panel 07/09/17 Range/Units 10:53 Sodium 143 (136-145) mEq/L Potassium 4.1 D (3.5-5.1) mEq/L Chloride 111 H (98-107) mEq/L Carbon Dioxide 27 (23-29) mEq/L BUN 21 (8-23) mg/dL Creatinine 0.67 (0.60-1.20) mg/dL Glucose 82 (70-105) mg/dL Calcium 8.9 (8.6-10.3) mg/dL - VTE Documentation of Mechanical Device: Venous foot pump, device Consult Discharge Plan - Plan Referrals: Virgilio Delcid Jr, MD [Primary Care Provider] -
[2017-07-10 09:14] LABS: Alanine Aminotransferase 9 Units/L (7-52); Albumin 2.4 g/dL (3.5-5.7); Alkaline Phosphatase 97 Units/L (34-104); Aspartate Amino Transferase 32 Units/L (13-39); BUN/Creatinine Ratio 34 (6-26); Bilirubin,Total 0.6 mg/dL (0.3-1.0); Blood Urea Nitrogen 34 mg/dL (8-23); Calcium 8.4 mg/dL (8.6-10.3); Carbon Dioxide 28 mEq/L (23-29); Chloride 111 mEq/L (98-107); Globulin 2.4 g/dL (2.4-3.5); Glucose 140 mg/dL (70-105); Magnesium 1.8 mg/dL (1.6-2.6); Osmolality,Calculated 306 (280-300); Potassium 4.1 mEq/L (3.5-5.1); Sodium 143 mEq/L (136-145); Total Protein 4.8 g/dL (6.4-8.9); eGFR For African Americans > 60 (> 60); eGFR For Non-African Americans 52 (> 60)
[2017-07-10] MEDS ORDERED: 0.9 % Sodium Chloride 250 ML IVC ONE (09:38)
--- NOTE | 2017-07-10 09:39 | Internal Med Progress Note ---
Date of Encounter: 07/10/17 Time of Encounter: 09:36 - Assessment and plan (1) Ascending cholangitis Current Visit: Yes Status: Acute Assessment and plan: Status post ERCP with sphincterotomy and stent placement. Appreciate GI input. Continue nothing by mouth. Follow LFTs, bilirubin daily. Bilirubin continues to trend down. Continue with Cipro and Flagyl. (2) Pancreatitis Current Visit: Yes Status: Acute Assessment and plan: Likely gallstone pancreatitis. Lipase was elevated at 584. Continue nothing by mouth. Supportive care. Pain control. IV hydration. Repeat lipase post ERCP was within normal limits. Appreciate surgery input. Status post laparoscopic cholecystectomy POD 1. Qualifiers: Chronicity: acute Pancreatitis type: biliary Acute pancreatitis complication: no infection or necrosis Qualified Code(s): K85.10 - Biliary acute pancreatitis without necrosis or infection (3) DVT prophylaxis Current Visit: No Status: Acute Assessment and plan: Subcutaneous heparin. 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 Fall precautions. Resume Sinemet when she has reliable oral intake. Currently the patient is nothing by mouth due to dysphagia and altered mental status. We will start IV fluids. We will consult palliative care service for goals of care. Qualifiers: Dementia behavioral disturbance: without behavioral disturbance Qualified Code(s): G20 - Parkinson's disease; F02.80 - Dementia in other diseases classified elsewhere without behavioral disturbance; F02.80 - Dementia in other diseases classified elsewhere without behavioral disturbance; F02.80 - Dementia in other diseases classified elsewhere without behavioral disturbance (5) Hypokalemia Current Visit: Yes Status: Acute Assessment and plan: Corrected yesterday with IV potassium. (6) Hypomagnesemia Current Visit: Yes Status: Acute Assessment and plan: Monitor magnesium levels. - Subjective Interval history: Patient cannot provide history due to advanced dementia and sedation. She is currently asleep, arousable, nonverbal, in no acute distress. She is status post laparoscopic cholecystectomy yesterday. - Constitutional Vitals: Temp Pulse Resp BP Pulse Ox 98.4 F 83 18 115/51 98 07/10/17 08:34 07/10/17 08:00 07/10/17 08:00 07/10/17 08:00 07/10/17 08:00 General appearance: Present: A&O X 0, no acute distress - Respiratory Respiratory exam: Present: CTAB. Absent: accessory muscle use, rales, rhonchi, wheezes - Cardiovascular Cardiovascular exam: Present: RRR, +S1, +S2. Absent: diastolic murmur, gallop, rubs, systolic murmur - GI/Abdominal GI/Abdominal exam: Present: normal bowel sounds, soft, no peritoneal signs. Absent: distended, tenderness - Extremities Exam Extremities exam: Present: warm, radial pulses palpable and symmetrical. Absent : calf tenderness, cyanotic, pedal edema - Skin Skin exam: Present: dry, intact Internal Medicine: Result - Labs CBC & Chem 7: 07/10/17 08:53 07/10/17 08:53 Labs: Short CBC 07/09/17 07/10/17 Range/Units 10:53 08:53 WBC 12.6 H 8.3 (4.3-11.1) K/mcL Hgb 10.1 L 9.0 L (11.5-15.4) g/dL Hct 32.5 L 29.8 L (35.3-44.9) % Plt Count 236 241 (140-400) K/mcL Neutrophils # 10.2 H 7.3 (1.6-8.9) K/mcL BMP 07/09/17 07/10/17 10:53 08:53 Sodium 143 143 Potassium 4.1 D 4.1 Chloride 111 H 111 H Carbon Dioxide 27 28 BUN 21 34 H Creatinine 0.67 1.01 Glucose 82 140 H Calcium 8.9 8.4 L Liver Function 07/10/17 Range/Units 08:53 Total Bilirubin 0.6 (0.3-1.0) mg/dL AST 32 (13-39) Units/L ALT 9 (7-52) Units/L Alkaline Phosphatase 97 (34-104) Units/L Albumin 2.4 L (3.5-5.7) g/dL - ABG Interpretation ABG results: PT/INR, D-dimer PT 13.4 Seconds (9.4-12.1) H 07/08/17 07:17 - VTE Documentation of Mechanical Device: Venous foot pump, device Consult Discharge Plan - Plan Referrals: Virgilio Delcid Jr, MD [Primary Care Provider] -
--- NOTE | 2017-07-10 14:04 | Event Note ---
Date of Encounter: 07/10/17 Time of Encounter: 14:02 Event note placed for surgery follow-up planning purposes. Pt is not recommended to continue cipro/flagyl po at d/c - Patient Status Disposition: Still a Patient Condition: Fair - Discharge Instructions Instructions: Laparoscopic Cholecystectomy (DC) Follow Up With: Virgilio Delcid Jr, MD [Primary Care Provider] - Damon Gonzalez MD [Non-Partnered Physician] - 07/24/17 3:35 pm Forms: ED Satisfaction Letter, Work/School Release Additional Instructions: General Surgical Discharge Instructions 1. No pushing, pulling, or lifting greater than 15 lbs for 4 weeks (depending upon procedure). 2. You may shower beginning today, but no tub baths, soaking, or swimming for 2 weeks. 3. You may resume driving when you are off narcotics and are safe to react in a car. 4. Take ibuprofen every 8 hours for discomfort. If this does not relieve discomfort, you may take the as needed Percocet. Take narcotics as directed. Do not take more narcotics then directed and do not share your narcotics with any other person. Do not drink alcohol while on narcotics. 5. Take stool softeners (Colace) or a water based laxative (Miralax) while taking narcotics. You may hold for loose stools. 6. Report any fevers greater than 100.5F, increase abdominal discomfort, drainage that looks like pus, increased redness or pain at the surgical site, or any vomiting. 7. Report any pain in the calves, shortness of breath, or rapid heartbeat. 8. Follow-up in the office as directed. 9. If you were prescribed antibiotics, do not stop them without talking to your provider. - Diet and Activity Activity: increase activity as tolerated Diet: advance to your usual diet
--- NOTE | 2017-07-10 14:43 | Palliative - Consult Note ---
Date of Encounter: 07/10/17 Time of Encounter: 12:30 - Assessment and Plan (1) Altered mental status Current Visit: Yes Status: Acute Assessment and plan: Patient has been obtunded since surgery, however, she is only 24 hours out from anesthesia. Will re-evaluate in am. She may become more alert when farther out from anesthesia. We have followed her before when she has been very somulent, and with treatment, she has responded and would participate with feedings. She has been a feed for quite some time, was previously on mechanically altered diet with thickened liquids, however, daughter states they let her eat "whatever she wanted". Qualifiers: Altered mental status type: unspecified Qualified Code(s): R41.82 - Altered mental status, unspecified (2) Advanced care planning/counseling discussion Current Visit: No Status: Acute Assessment and plan: Daughter Junior BERRY at bedside. Discussed goals of care - she has been a DNR/ DNI for quite some time, and this continues this admission. Palliative has met with daughter in the past, when she would become ill and have issues with oral intake, we would be consulted to discuss artificial nutrition. Daughter has wanted to avoid this in the past, and is not in favor of a PEG. Discussed with daughter that speech will see this afternoon, and daughter hoping once further out from surgery she will "wake up" and be able to participate in po feedings. We have had discussion in the past with the daughter regarding hospice care for her COPD/Parkinsons, but she has not desired this in the past. Will f/u in am. 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 (5) COPD (chronic obstructive pulmonary disease) Current Visit: Yes Status: Acute Qualifiers: Qualified Code(s): J44.9 - Chronic obstructive pulmonary disease, unspecified Palliative-CN HPI - Data of Consult Consult date: 07/10/17 Requesting Physician: Roshan Tyson MD Primary Care Provider: Virgilio Delcid Jr, MD - Consult Narrative History of present illness: Ms. Jesus is a 82 year old female known to the palliative care team from previous visits who presented to ED with worsening abd pain, nausea and vomiting. Patient unable to provide history - daughter and KRISTI Pacheco provides most information. Palliative has seen her in the past r/t COPD. Other history includes: HTn, Afib not on A/c, Advanced Dementia. Patient had increased EBC at 22,000 on admission and elevated liver enzymes. Ultrasound demonstrated dilated CBD. She had ERCP with placement of stent into bile duct and Surgical consult was obtained for acute cholecystitis. She was taken to OR on 07/09 for cholecysectomy. Since surgery, pt has been somulent, and not very responsive. Upon my visit, she does open eyes when name called, however, does not verbalize or follow any commands for me. She did shake her head "no" when asked if she were in pain, but did not respond to other questions. 3 Stab wounds to abd intact. No one at bedside at my initial visit. CC: Roshan Tyson MD Past Med Surg Social Fam HX - Past Medical History Medical history: COPD, dementia, other Psychiatric history: no psych history - Past Surgical History Surgical History: hysterectomy, other (neck surgery) - Social History Smoking Status: Former smoker Smokeless Tobacco Status: No Alcohol use: none Drug use: none - Family History Mother Living Status: Age at : 90 Hx Family Endocrine Disorder: Yes (DM) Father Adopted: No Living Status: Cause of : heart attack Hx Family Cardiac Disorders: Yes Hx Family Respiratory Disorders: No Hx Family Cancer: No Hx Family GI Disorders: No Hx Family Endocrine Disorder: Yes Hx Family Neuromuscular Disorders: No Hx Family Neurologic Disorders: No Hx Family HEENT Disorders: No Hx Family Autoimmune Disorders: No Medications and Allergies Aspirin Enteric Coated [Aspirin EC] 81 mg PO DAILY #30 tablet. 03/08/15 [Rx] Calcitriol [Rocaltrol] 0.25 mcg PO DAILY #30 capsule 03/08/15 [Rx] Diltiazem HCl [Diltiazem ER] 180 mg PO DAILY 04/28/17 [History] Quetiapine Fumarate [Seroquel] 12.5 mg PO HS #30 tablet 05/04/17 [Rx] Ipratropium/Albuterol Neb [Duoneb] 3 ml IH [id number] PRN #30 inhsol 05/05/17 [Rx] Carbidopa/Levodopa ER 50/200 [Sinemet ER 50-200 Tab] 1 tab PO TID 07/08/17 [ History] 3 Allergy/AdvReac Type Severity Reaction Status Date / Time No Known Allergies Allergy Verified 07/08/17 13:54 ROS unobtainable: due to mental status Palliative Care-Exam - Constitutional Vitals: Temp Pulse Resp BP Pulse Ox 98.9 F 93 22 106/56 94 07/10/17 12:37 07/10/17 14:00 07/10/17 14:00 07/10/17 14:00 07/10/17 14:00 General appearance: Present: thin - Head Head Exam: Present: normal inspection, normocephalic - Eye Eye exam: Present: normal appearance, PERRL - Respiratory Respiratory exam: Present: decreased breath sounds, CTAB Additional comments: Shallow inspiratory effort - Cardiovascular Cardiovascular exam: Present: +S1, +S2 - GI/Abdominal Exam GI/Abdominal exam: Present: diminished bowel sounds, soft - Catheter Type: Urethral ([place]) Additional comments: Urine dk ridge with sediment noted - Extremities Exam Extremities exam: Present: normal capillary refill, normal inspection - Neurological Exam Neurological exam: Present: alert Additional comments: No verbal response, does not follow commands. Opens eyes when name called. - Skin Skin exam: Present: dry, pallor, warm Internal Medicine - CN: Reslt - Labs CBC & Chem 7: 07/10/17 08:53 07/10/17 08:53 Labs: Short CBC 07/10/17 Range/Units 08:53 WBC 8.3 (4.3-11.1) K/mcL Hgb 9.0 L (11.5-15.4) g/dL Hct 29.8 L (35.3-44.9) % Plt Count 241 (140-400) K/mcL Neutrophils # 7.3 (1.6-8.9) K/mcL BMP 07/10/17 08:53 Sodium 143 Potassium 4.1 Chloride 111 H Carbon Dioxide 28 BUN 34 H Creatinine 1.01 Glucose 140 H Calcium 8.4 L Liver Function 07/10/17 Range/Units 08:53 Total Bilirubin 0.6 (0.3-1.0) mg/dL AST 32 (13-39) Units/L ALT 9 (7-52) Units/L Alkaline Phosphatase 97 (34-104) Units/L Albumin 2.4 L (3.5-5.7) g/dL - ABG Interpretation ABG results: PT/INR, D-dimer PT 13.4 Seconds (9.4-12.1) H 07/08/17 07:17 Consult Discharge Plan - Plan Instructions: Laparoscopic Cholecystectomy (DC) Additional Instructions: General Surgical Discharge Instructions 1. No pushing, pulling, or lifting greater than 15 lbs for 4 weeks (depending upon procedure). 2. You may shower beginning today, but no tub baths, soaking, or swimming for 2 weeks. 3. You may resume driving when you are off narcotics and are safe to react in a car. 4. Take ibuprofen every 8 hours for discomfort. If this does not relieve discomfort, you may take the as needed Percocet. Take narcotics as directed. Do not take more narcotics then directed and do not share your narcotics with any other person. Do not drink alcohol while on narcotics. 5. Take stool softeners (Colace) or a water based laxative (Miralax) while taking narcotics. You may hold for loose stools. 6. Report any fevers greater than 100.5F, increase abdominal discomfort, drainage that looks like pus, increased redness or pain at the surgical site, or any vomiting. 7. Report any pain in the calves, shortness of breath, or rapid heartbeat. 8. Follow-up in the office as directed. 9. If you were prescribed antibiotics, do not stop them without talking to your provider. Referrals: Damon Gonzalez MD [Non-Partnered Physician] - 07/24/17 3:35 pm Virgilio Delcid Jr, MD [Primary Care Provider] - Palliative Quality Palliative Quality: Screen for Code Status: Yes, Screen for Goals of Care: Yes, Screen for Pain: Yes, If Pain Regimen Started, Initiate Bowel Regimen: Yes, Screen for Nausea/Vomitting: Yes Code Status: 07/07/17 09:33 CODE [Resuscitation Status: Active] [RES] Routine Comment: Resuscitation Status: [id number]
[2017-07-11] MEDS: MetroNIDAZOLE 500 MG/100 ML 500 MG/100 ML BAG IVPB SCH ×3 (00:52→17:15)
[2017-07-11 05:16] LABS: Alanine Aminotransferase 24 Units/L (7-52); Albumin 2.5 g/dL (3.5-5.7); Alkaline Phosphatase 91 Units/L (34-104); Aspartate Amino Transferase 19 Units/L (13-39); BUN/Creatinine Ratio 36 (6-26); Bilirubin,Total 0.6 mg/dL (0.3-1.0); Blood Urea Nitrogen 33 mg/dL (8-23); Calcium 8.4 mg/dL (8.6-10.3); Carbon Dioxide 26 mEq/L (23-29); Chloride 113 mEq/L (98-107); Globulin 2.4 g/dL (2.4-3.5); Glucose 110 mg/dL (70-105); Magnesium 1.6 mg/dL (1.6-2.6); Osmolality,Calculated 308 (280-300); Potassium 3.8 mEq/L (3.5-5.1); Sodium 145 mEq/L (136-145); Total Protein 4.9 g/dL (6.4-8.9); eGFR For African Americans > 60 (> 60); eGFR For Non-African Americans 58 (> 60)
[2017-07-11] MEDS: *HR* Heparin 5,000 UNIT/ML VIAL SQ SCH ×2 (05:40→17:13)
[2017-07-11] MEDS: *HR* Morphine 2 MG/ML SYRINGE IVP PRN ×2 (05:40→20:35)
[2017-07-11] MEDS: Aspirin Enteric Coated 81 MG Tablet PO SCH (07:33)
[2017-07-11] MEDS: Carbidopa/Levodopa ER 50/200 TABLET PO SCH ×3 (07:34→20:35)
--- NOTE | 2017-07-11 10:51 | Palliative Progress Note ---
Date of Encounter: 07/11/17 Time of Encounter: 09:45 - Assessment and plan (1) Altered mental status Current Visit: Yes Status: Acute Assessment and plan: Improving. More alert today and can answer some questions. Participated with speech therapy. Qualifiers: Altered mental status type: unspecified Qualified Code(s): R41.82 - Altered mental status, unspecified (2) Advanced care planning/counseling discussion Current Visit: No Status: Acute Assessment and plan: Able to participate with speech and taking oral. No family at bedside. Thus far they have continued to desire [facility] health with home palliative visits. Will follow up on Friday on clinical status. 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 Qualifiers: Dementia behavioral disturbance: without behavioral disturbance Qualified Code(s): G20 - Parkinson's disease; F02.80 - Dementia in other diseases classified elsewhere without behavioral disturbance; F02.80 - Dementia in other diseases classified elsewhere without behavioral disturbance; F02.80 - Dementia in other diseases classified elsewhere without behavioral disturbance (4) Cholecystitis Current Visit: Yes Status: Acute (5) COPD (chronic obstructive pulmonary disease) Current Visit: Yes Status: Acute Qualifiers: Qualified Code(s): J44.9 - Chronic obstructive pulmonary disease, unspecified - Time Spent With Patient Total time spent is greater than 50% in coordination of care (as documented) at patient's floor/unit and/or counseling patient: 25 - 35 minutes - Subjective Interval history: Patient more alert today - responding to some questions. Participated with speech today and cleared for pureed diet with honey thick liquids by spoon. Patient denies pain on questioning. Smiles when spoken to. No family present. - Constitutional Vitals: Abnormal lab results RBC 2.96 M/mcL (3.82-4.97) L 07/10/17 08:53 Hgb 9.0 g/dL (11.5-15.4) L 07/10/17 08:53 Hct 29.8 % (35.3-44.9) L 07/10/17 08:53 MCV 100.7 fL (83.0-100.0) H 07/10/17 08:53 MCHC 30.2 g/dL (31.6-35.5) L 07/10/17 08:53 RDW 16.0 % (11.5-14.5) H 07/10/17 08:53 MPV 9.3 fL (9.4-12.4) L 07/10/17 08:53 PT 13.4 Seconds (9.4-12.1) H 07/08/17 07:17 Chloride 113 mEq/L (98-107) H 07/11/17 04:05 BUN 33 mg/dL (8-23) H 07/11/17 04:05 Est GFR (Non-Af Amer) 58 (> 60) L 07/11/17 04:05 BUN/Creatinine Ratio 36 (6-26) H 07/11/17 04:05 Glucose 110 mg/dL (70-105) H 07/11/17 04:05 POC Glucose 122 (58-89) H 07/10/17 23:16 Calculated Osmolality 308 (280-300) H 07/11/17 04:05 Calcium 8.4 mg/dL (8.6-10.3) L 07/11/17 04:05 Phosphorus 2.4 mg/dL (2.7-4.5) L 07/08/17 09:38 Direct Bilirubin 1.6 mg/dL (0.0-0.2) H 07/07/17 04:44 Indirect Bilirubin 1.6 mg/dL (0.0-1.2) H 07/07/17 04:44 Serum Total Protein 4.9 g/dL (6.4-8.9) L 07/11/17 04:05 Albumin 2.5 g/dL (3.5-5.7) L 07/11/17 04:05 Albumin/Globulin Ratio 1.0 (1.1-2.2) L 07/11/17 04:05 Lipase 7 Units/L (11-82) L 07/09/17 05:05 Urine Clarity Turbid (Clear) A 07/07/17 04:45 Urine Protein 30 mg/dL (Neg-Trace) H 07/07/17 04:45 Urine Bilirubin Moderate (Negative) H 07/07/17 04:45 Ur Leukocyte Esterase Trace (Negative) H 07/07/17 04:45 Urine Microscopic WBC 5-15 per hpf (0-3) H 07/07/17 04:45 Ur Squamous Epith Cells Many per lpf (None-Few) H 07/07/17 04:45 Amorphous Sediment Many (Few) H 07/07/17 04:45 Urine Bacteria Moderate per hpf (None-Few) H 07/07/17 04:45 Granular Casts Few per lpf (None Seen) H 07/07/17 04:45 Urine Yeast Moderate per hpf (None Seen) H 07/07/17 04:45 General appearance: Present: no acute distress - Respiratory Respiratory exam: Present: decreased breath sounds, CTAB - Cardiovascular Cardiovascular exam: Present: +S1, +S2 - GI/Abdominal GI/Abdominal exam: Present: normal bowel sounds, soft - Extremities Exam Extremities exam: Present: normal capillary refill, normal inspection - Neurological Exam Neurological exam: Present: alert Additional comments: Pleasantly confused. - Skin Skin exam: Present: dry, pallor, warm Palliative Quality Palliative Quality: Screen for Code Status: Yes, Screen for Goals of Care: Yes, Screen for Pain: Yes, If Pain Regimen Started, Initiate Bowel Regimen: Yes, Screen for Nausea/Vomitting: Yes Code Status: 07/07/17 09:33 CODE [Resuscitation Status: Active] [RES] Routine Comment: Resuscitation Status: [id number] - Labs CBC & Chem 7: 07/10/17 08:53 07/11/17 04:05 Labs: Laboratory Results - last 24 hr 07/10/17 07/10/17 07/11/17 12:06 23:16 04:05 Sodium 145 Potassium 3.8 Chloride 113 H Carbon Dioxide 26 BUN 33 H Creatinine 0.92 Est GFR ( Amer) > 60 Est GFR (Non-Af Amer) 58 L BUN/Creatinine Ratio 36 H Glucose 110 H POC Glucose 99 H 122 H Calculated Osmolality 308 H Calcium 8.4 L Magnesium 1.6 Total Bilirubin 0.6 AST 19 ALT 24 Alkaline Phosphatase 91 Serum Total Protein 4.9 L Albumin 2.5 L Globulin 2.4 Albumin/Globulin Ratio 1.0 L - ABG Interpretation ABG results: PT/INR, D-dimer PT 13.4 Seconds (9.4-12.1) H 07/08/17 07:17 Consult Discharge Plan - Plan Instructions: Laparoscopic Cholecystectomy (DC) Additional Instructions: General Surgical Discharge Instructions 1. No pushing, pulling, or lifting greater than 15 lbs for 4 weeks (depending upon procedure). 2. You may shower beginning today, but no tub baths, soaking, or swimming for 2 weeks. 3. You may resume driving when you are off narcotics and are safe to react in a car. 4. Take ibuprofen every 8 hours for discomfort. If this does not relieve discomfort, you may take the as needed Percocet. Take narcotics as directed. Do not take more narcotics then directed and do not share your narcotics with any other person. Do not drink alcohol while on narcotics. 5. Take stool softeners (Colace) or a water based laxative (Miralax) while taking narcotics. You may hold for loose stools. 6. Report any fevers greater than 100.5F, increase abdominal discomfort, drainage that looks like pus, increased redness or pain at the surgical site, or any vomiting. 7. Report any pain in the calves, shortness of breath, or rapid heartbeat. 8. Follow-up in the office as directed. 9. If you were prescribed antibiotics, do not stop them without talking to your provider. Referrals: Damon Gonzalez MD [Non-Partnered Physician] - 07/24/17 3:35 pm Virgilio Delcid Jr, MD [Primary Care Provider] -
[2017-07-11 16:20] LABS: BUN/Creatinine Ratio 34 (6-26); Blood Urea Nitrogen 30 mg/dL (8-23); Calcium 8.1 mg/dL (8.6-10.3); Carbon Dioxide 26 mEq/L (23-29); Chloride 115 mEq/L (98-107); Glucose 147 mg/dL (70-105); Magnesium 2.2 mg/dL (1.6-2.6); Osmolality,Calculated 303 (280-300); Potassium 4.5 mEq/L (3.5-5.1); Sodium 142 mEq/L (136-145); eGFR For African Americans > 60 (> 60); eGFR For Non-African Americans > 60 (> 60)
[2017-07-11] MEDS ORDERED: 0.9 % Sodium Chloride 1,000 ML ONE (17:12)
[2017-07-11] MEDS: 0.9 % Sodium Chloride 1,000 ML IVC SCH ×2 (17:24→17:25)
--- NOTE | 2017-07-11 18:28 | Internal Med Progress Note ---
Date of Encounter: 07/11/17 Time of Encounter: 14:00 - Assessment and plan (1) Ascending cholangitis Current Visit: Yes Status: Acute Assessment and plan: Status post ERCP with sphincterotomy and stent placement. Appreciate GI input. Bilirubin continues to trend down. Start oral diet. Continue with Cipro and Flagyl for a total of 5 days.. (2) Pancreatitis Current Visit: Yes Status: Acute Assessment and plan: Advance diet. Likely gallstone pancreatitis. Lipase was elevated at 584 on admission. Supportive care. Pain control. IV hydration. Repeat lipase post ERCP was within normal limits. Appreciate surgery input. Status post laparoscopic cholecystectomy POD 1. Qualifiers: Chronicity: acute Pancreatitis type: biliary Acute pancreatitis complication: no infection or necrosis Qualified Code(s): K85.10 - Biliary acute pancreatitis without necrosis or infection (3) DVT prophylaxis Current Visit: No Status: Acute Assessment and plan: Subcutaneous heparin. 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 Fall precautions. Continue with Sinemet. We will consult palliative care service for goals of care. Qualifiers: Dementia behavioral disturbance: without behavioral disturbance Qualified Code(s): G20 - Parkinson's disease; F02.80 - Dementia in other diseases classified elsewhere without behavioral disturbance; F02.80 - Dementia in other diseases classified elsewhere without behavioral disturbance; F02.80 - Dementia in other diseases classified elsewhere without behavioral disturbance (5) Hypokalemia Current Visit: Yes Status: Acute Assessment and plan: Replaced. (6) Hypomagnesemia Current Visit: Yes Status: Acute Assessment and plan: Check magnesium in the morning. - Subjective Interval history: Patient cannot provide history due to advanced dementia and sedation. She is currently asleep, arousable, nonverbal, in no acute distress. She is status post laparoscopic cholecystectomy POD 2. Per patient's nurse patient has been able to wake up and eat some pudding consistency food. - Constitutional Vitals: Temp Pulse Resp BP Pulse Ox 98.7 F 91 18 137/80 100 07/11/17 16:21 07/11/17 16:21 07/11/17 16:21 07/11/17 16:21 07/11/17 16:21 General appearance: Present: A&O X 0, no acute distress - Respiratory Respiratory exam: Present: CTAB. Absent: accessory muscle use, rales, rhonchi, wheezes - Cardiovascular Cardiovascular exam: Present: irregular rhythm, +S1, +S2. Absent: diastolic murmur, gallop, rubs, systolic murmur - GI/Abdominal GI/Abdominal exam: Present: normal bowel sounds, soft, no peritoneal signs. Absent: distended, tenderness Internal Medicine: Result - Labs CBC & Chem 7: 07/10/17 08:53 07/11/17 15:37 Labs: BMP 07/11/17 07/11/17 04:05 15:37 Sodium 145 142 Potassium 3.8 4.5 Chloride 113 H 115 H Carbon Dioxide 26 26 BUN 33 H 30 H Creatinine 0.92 0.87 Glucose 110 H 147 H Calcium 8.4 L 8.1 L Liver Function 07/11/17 Range/Units 04:05 Total Bilirubin 0.6 (0.3-1.0) mg/dL AST 19 (13-39) Units/L ALT 24 (7-52) Units/L Alkaline Phosphatase 91 (34-104) Units/L Albumin 2.5 L (3.5-5.7) g/dL - ABG Interpretation ABG results: PT/INR, D-dimer PT 13.4 Seconds (9.4-12.1) H 07/08/17 07:17 - VTE Documentation of Mechanical Device: Venous foot pump, device Consult Discharge Plan - Plan Instructions: Laparoscopic Cholecystectomy (DC) Additional Instructions: General Surgical Discharge Instructions 1. No pushing, pulling, or lifting greater than 15 lbs for 4 weeks (depending upon procedure). 2. You may shower beginning today, but no tub baths, soaking, or swimming for 2 weeks. 3. You may resume driving when you are off narcotics and are safe to react in a car. 4. Take ibuprofen every 8 hours for discomfort. If this does not relieve discomfort, you may take the as needed Percocet. Take narcotics as directed. Do not take more narcotics then directed and do not share your narcotics with any other person. Do not drink alcohol while on narcotics. 5. Take stool softeners (Colace) or a water based laxative (Miralax) while taking narcotics. You may hold for loose stools. 6. Report any fevers greater than 100.5F, increase abdominal discomfort, drainage that looks like pus, increased redness or pain at the surgical site, or any vomiting. 7. Report any pain in the calves, shortness of breath, or rapid heartbeat. 8. Follow-up in the office as directed. 9. If you were prescribed antibiotics, do not stop them without talking to your provider. Referrals: Damon Gonzalez MD [Non-Partnered Physician] - 07/24/17 3:35 pm Virgilio Delcid Jr, MD [Primary Care Provider] - 07/21/17 3:00 pm
[2017-07-12] MEDS: MetroNIDAZOLE 500 MG/100 ML 500 MG/100 ML BAG IVPB SCH ×3 (01:53→17:33)
[2017-07-12] MEDS: Ipratropium/Albuterol Neb 3 ML IH PRN ×2 (02:00→10:09)
[2017-07-12] MEDS: *HR* Heparin 5,000 UNIT/ML VIAL SQ SCH ×2 (06:40→17:35)
[2017-07-12 06:54] LABS: BUN/Creatinine Ratio 35 (6-26); Blood Urea Nitrogen 31 mg/dL (8-23); Carbon Dioxide 28 mEq/L (23-29); Chloride 116 mEq/L (98-107); Glucose 97 mg/dL (70-105); Osmolality,Calculated 306 (280-300); Potassium 4.7 mEq/L (3.5-5.1); Sodium 145 mEq/L (136-145); eGFR For African Americans > 60 (> 60); eGFR For Non-African Americans > 60 (> 60)
[2017-07-12 07:28] LABS: Basophils % 0.1 %; Hematocrit 31.5 % (35.3-44.9); Hemoglobin 9.5 g/dL (11.5-15.4); Immature Granulocytes % 0.5 % (0-4); Lymphocytes # 1.1 K/mcL (0.6-4.6); Lymphocytes % 11.7 %; Mean Corpuscular HGB Conc 30.2 g/dL (31.6-35.5); Mean Corpuscular Hemoglobin 30.5 pg (28.0-33.3); Mean Corpuscular Volume 101.3 fL (83.0-100.0); Mean Platelet Volume 9.8 fL (9.4-12.4); Monocytes # 0.8 K/mcL (0.0-1.3); Monocytes % 8.2 %; Neutrophils # 7.7 K/mcL (1.6-8.9); Platelet Count 271 K/mcL (140-400); Red Blood Count 3.11 M/mcL (3.82-4.97); Red Cell Distribution Width 16.3 % (11.5-14.5); Segmented Neutrophils % 79.5 %
[2017-07-12] MEDS: 0.9 % Sodium Chloride 1,000 ML IVC SCH (09:46)
[2017-07-12] MEDS: Aspirin Enteric Coated 81 MG Tablet PO SCH (09:52)
[2017-07-12] MEDS: Carbidopa/Levodopa ER 50/200 TABLET PO SCH ×3 (09:52→16:00)
[2017-07-12 12:18] LABS: ABG Base Excess 0 mEq/L (-2 to 3); ABG HCO3 27 mEq/L (21-27); ABG Oxygen Saturation 83 % (95-98); ABG PCO2 51 mmHg (35-45); ABG PH 7.32 pH Units (7.32-7.45); ABG PO2 52 mmHg (85-104); ABG TCO2 28 mEq/L (20-26)
[2017-07-12] MEDS ORDERED: Furosemide 20 MG/2 ML VIAL IVP ONE (15:56)
--- NOTE | 2017-07-12 18:10 | Internal Med Progress Note ---
Date of Encounter: 07/12/17 Time of Encounter: 13:00 - Assessment and plan (1) Ascending cholangitis Current Visit: Yes Status: Acute Assessment and plan: Status post ERCP with sphincterotomy and stent placement. Bilirubin back to normal Start oral diet. Continue with Cipro and Flagyl for a total of 5 days. Stop after today. (2) Pancreatitis Current Visit: Yes Status: Acute Assessment and plan: Advance diet. Likely gallstone pancreatitis. Lipase was elevated at 584 on admission. Supportive care. Pain control. IV hydration. Repeat lipase post ERCP was within normal limits. Appreciate surgery input. Status post laparoscopic cholecystectomy POD 1. Qualifiers: Chronicity: acute Pancreatitis type: biliary Acute pancreatitis complication: no infection or necrosis Qualified Code(s): K85.10 - Biliary acute pancreatitis without necrosis or infection (3) DVT prophylaxis Current Visit: No Status: Acute Assessment and plan: Subcutaneous heparin. 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 Fall precautions. Continue with Sinemet. We will consult palliative care service for goals of care. Qualifiers: Dementia behavioral disturbance: without behavioral disturbance Qualified Code(s): G20 - Parkinson's disease; F02.80 - Dementia in other diseases classified elsewhere without behavioral disturbance; F02.80 - Dementia in other diseases classified elsewhere without behavioral disturbance; F02.80 - Dementia in other diseases classified elsewhere without behavioral disturbance (5) Hypokalemia Current Visit: Yes Status: Acute Assessment and plan: Replaced. (6) Hypomagnesemia Current Visit: Yes Status: Acute Assessment and plan: Check magnesium in the morning. (7) Fluid overload Current Visit: Yes Status: Acute Assessment and plan: Patient is more hypoxic today. Chest x-ray shows vascular congestion. Stop IV fluids. Give 1 dose of IV Lasix. Repeat Lasix at 8 hours if the patient remains hypoxic. Qualifiers: Hypervolemia type: other Qualified Code(s): E87.79 - Other fluid overload (8) Acute respiratory failure with hypoxia Current Visit: Yes Status: Acute Assessment and plan: Patient is more hypoxic, required oxygen by facemask 15 L/m. ABG consistent with hypoxia and mild hypercarbic respiratory failure likely secondary to hypoventilation versus vascular congestion. We will give a trial of BiPAP. Stop IV fluids. Give 1 dose of Lasix. Monitor clinically. She is at high risk for morbidity mortality and complications due to altered mental status. - Subjective Interval history: Patient cannot provide history due to advanced dementia and sedation. She is currently asleep, arousable, nonverbal, in no acute distress. She is status post laparoscopic cholecystectomy POD 3. Per patient's nurse patient has been able to wake up and eat a few spoonfuls but then falls asleep right away - Constitutional Vitals: Temp Pulse Resp BP Pulse Ox 98.2 F 94 19 141/73 98 07/12/17 16:49 07/12/17 16:49 07/12/17 16:49 07/12/17 16:49 07/12/17 17:42 General appearance: Present: A&O X 0, no acute distress - Eye Eye exam: Present: conjuntiva pink, sclera anicteric - Respiratory Respiratory exam: Present: decreased breath sounds, CTAB. Absent: accessory muscle use, rales, rhonchi, wheezes - Cardiovascular Cardiovascular exam: Present: RRR, +S1, +S2. Absent: diastolic murmur, gallop, rubs, systolic murmur - GI/Abdominal GI/Abdominal exam: Present: normal bowel sounds, soft, no peritoneal signs. Absent: distended, tenderness - Extremities Exam Extremities exam: Present: warm, radial pulses palpable and symmetrical. Absent : calf tenderness, cyanotic, pedal edema Internal Medicine: Result - Labs CBC & Chem 7: 07/12/17 06:20 07/12/17 06:20 Labs: Short CBC 07/12/17 Range/Units 06:20 WBC 9.6 (4.3-11.1) K/mcL Hgb 9.5 L (11.5-15.4) g/dL Hct 31.5 L (35.3-44.9) % Plt Count 271 (140-400) K/mcL Neutrophils # 7.7 (1.6-8.9) K/mcL BMP 07/12/17 06:20 Sodium 145 Potassium 4.7 Chloride 116 H Carbon Dioxide 28 BUN 31 H Creatinine 0.89 Glucose 97 Calcium 8.0 L - ABG Interpretation ABG results: ABG ABG pH 7.32 pH Units (7.32-7.45) 07/12/17 12:15 ABG pCO2 51 mmHg (35-45) H 07/12/17 12:15 ABG pO2 52 mmHg (85-104) L 07/12/17 12:15 ABG O2 Saturation 83 % (95-98) L 07/12/17 12:15 PT/INR, D-dimer PT 13.4 Seconds (9.4-12.1) H 07/08/17 07:17 - Impressions Impressions Chest X-Ray 07/12/17 11:08 IMPRESSION: Interval development of bilateral pleural effusion with bibasilar pulmonary opacities. Bibasilar pulmonary opacities may represent combination of atelectasis and pneumonia. Recommend radiographic follow-up to complete resolution. Mild prominence of interstitial lung markings may represent pulmonary venous congestion. Correlate with volume status. D/ / Mina Sevilla MD / Mina Sevilla MD Interpreting Provider: Mina Sevilla MD - VTE Documentation of Mechanical Device: Venous foot pump, device Consult Discharge Plan - Plan Instructions: Laparoscopic Cholecystectomy (DC) Additional Instructions: General Surgical Discharge Instructions 1. No pushing, pulling, or lifting greater than 15 lbs for 4 weeks (depending upon procedure). 2. You may shower beginning today, but no tub baths, soaking, or swimming for 2 weeks. 3. You may resume driving when you are off narcotics and are safe to react in a car. 4. Take ibuprofen every 8 hours for discomfort. If this does not relieve discomfort, you may take the as needed Percocet. Take narcotics as directed. Do not take more narcotics then directed and do not share your narcotics with any other person. Do not drink alcohol while on narcotics. 5. Take stool softeners (Colace) or a water based laxative (Miralax) while taking narcotics. You may hold for loose stools. 6. Report any fevers greater than 100.5F, increase abdominal discomfort, drainage that looks like pus, increased redness or pain at the surgical site, or any vomiting. 7. Report any pain in the calves, shortness of breath, or rapid heartbeat. 8. Follow-up in the office as directed. 9. If you were prescribed antibiotics, do not stop them without talking to your provider. Referrals: Damon Gonzalez MD [Non-Partnered Physician] - 07/24/17 3:35 pm Virgilio Delcid Jr, MD [Primary Care Provider] - 07/21/17 3:00 pm
[2017-07-13] MEDS: Carbidopa/Levodopa ER 50/200 TABLET PO SCH ×5 (00:25→21:32)
[2017-07-13] MEDS: MetroNIDAZOLE 500 MG/100 ML 500 MG/100 ML BAG IVPB SCH ×2 (01:35→09:13)
[2017-07-13] MEDS: *HR* Heparin 5,000 UNIT/ML VIAL SQ SCH ×2 (05:30→17:45)
[2017-07-13 06:03] LABS: Eosinophils % 0.2 %; Hematocrit 30.1 % (35.3-44.9); Hemoglobin 9.1 g/dL (11.5-15.4); Immature Granulocytes % 1.5 % (0-4); Lymphocytes # 1.3 K/mcL (0.6-4.6); Lymphocytes % 15.9 %; Mean Corpuscular HGB Conc 30.2 g/dL (31.6-35.5); Mean Corpuscular Hemoglobin 29.9 pg (28.0-33.3); Mean Platelet Volume 9.8 fL (9.4-12.4); Monocytes # 0.6 K/mcL (0.0-1.3); Neutrophils # 6.1 K/mcL (1.6-8.9); Platelet Count 260 K/mcL (140-400); Red Blood Count 3.04 M/mcL (3.82-4.97); Red Cell Distribution Width 16.1 % (11.5-14.5); Segmented Neutrophils % 75.4 %
[2017-07-13 06:11] LABS: BUN/Creatinine Ratio 31 (6-26); Blood Urea Nitrogen 25 mg/dL (8-23); Calcium 7.8 mg/dL (8.6-10.3); Carbon Dioxide 29 mEq/L (23-29); Chloride 113 mEq/L (98-107); Glucose 125 mg/dL (70-105); Magnesium 1.6 mg/dL (1.6-2.6); Osmolality,Calculated 306 (280-300); Potassium 3.8 mEq/L (3.5-5.1); Sodium 145 mEq/L (136-145); eGFR For African Americans > 60 (> 60); eGFR For Non-African Americans > 60 (> 60)
[2017-07-13] MEDS: Aspirin Enteric Coated 81 MG Tablet PO SCH (09:10)
[2017-07-13] MEDS ORDERED: Furosemide 20 MG/2 ML VIAL IVP ONE (15:40)
--- NOTE | 2017-07-13 15:46 | Internal Med Progress Note ---
Date of Encounter: 07/13/17 Time of Encounter: 15:42 - Assessment and plan (1) Ascending cholangitis Current Visit: Yes Status: Acute Assessment and plan: Status post ERCP with sphincterotomy and stent placement. Bilirubin back to normal Start oral diet. Completed course of Cipro and Flagyl. Stop antibiotics. (2) Pancreatitis Current Visit: Yes Status: Acute Assessment and plan: Advance diet. Likely gallstone pancreatitis. Lipase was elevated at 584 on admission. Supportive care. Pain control. IV hydration. Repeat lipase post ERCP was within normal limits. Appreciate surgery input. Status post laparoscopic cholecystectomy POD 4. Qualifiers: Chronicity: acute Pancreatitis type: biliary Acute pancreatitis complication: no infection or necrosis Qualified Code(s): K85.10 - Biliary acute pancreatitis without necrosis or infection (3) DVT prophylaxis Current Visit: No Status: Acute Assessment and plan: Subcutaneous heparin. 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 Fall precautions. Continue with Sinemet. We will consult palliative care service for goals of care. Qualifiers: Dementia behavioral disturbance: without behavioral disturbance Qualified Code(s): G20 - Parkinson's disease; F02.80 - Dementia in other diseases classified elsewhere without behavioral disturbance; F02.80 - Dementia in other diseases classified elsewhere without behavioral disturbance; F02.80 - Dementia in other diseases classified elsewhere without behavioral disturbance (5) Hypokalemia Current Visit: Yes Status: Acute Assessment and plan: Replaced. (6) Hypomagnesemia Current Visit: Yes Status: Acute Assessment and plan: Check magnesium in the morning. (7) Fluid overload Current Visit: Yes Status: Acute Assessment and plan: Chest x-ray personally reviewed shows right pleural effusion which is new from prior, bibasilar atelectasis and mild vascular congestion. Give 1 dose of IV Lasix. BiPAP as needed for labored breathing. Monitor I's and O's and daily weights. Qualifiers: Hypervolemia type: other Qualified Code(s): E87.79 - Other fluid overload (8) Acute respiratory failure with hypoxia Current Visit: Yes Status: Acute Assessment and plan: Patient was more hypoxic starting 48 hours ago, required oxygen by facemask 15 L /m. ABG was consistent with hypoxia and mild hypercarbic respiratory failure likely secondary to hypoventilation versus vascular congestion. Continue with BiPAP as needed. Titrate nasal cannula down oxygen by nasal cannula to maintain saturation above 90%. Start incentive spirometry. PT OT. Out of bed to chair. She is at high risk for morbidity mortality and complications due to altered mental status. - Subjective Interval history: Patient cannot provide history due to dementia. She is currently asleep, easily arousable, answers basic questions with yes/no answers. She is status post laparoscopic cholecystectomy POD 4. Per patient's nurse patient eating a few bites with each meal. Per patient's nurse the patient appeared to have labored breathing and sounded wet and she was placed on BiPAP which she tolerated well. - Constitutional Vitals: Temp Pulse Resp BP Pulse Ox 99.2 F 105 20 145/85 94 07/13/17 11:35 07/13/17 11:40 07/13/17 11:35 07/13/17 11:35 07/13/17 12:54 General appearance: Present: A&O X 0, no acute distress - Eye Eye exam: Present: PERRL, conjuntiva pink, sclera anicteric Pupils: Present: PERRL - Respiratory Respiratory exam: Present: decreased breath sounds, rales. Absent: accessory muscle use, rhonchi, wheezes - Cardiovascular Cardiovascular exam: Present: RRR, +S1, +S2. Absent: diastolic murmur, gallop, rubs, systolic murmur - GI/Abdominal GI/Abdominal exam: Present: normal bowel sounds, soft, no peritoneal signs. Absent: distended, tenderness - Extremities Exam Extremities exam: Present: warm, radial pulses palpable and symmetrical. Absent : calf tenderness, cyanotic, pedal edema Internal Medicine: Result - Labs CBC & Chem 7: 07/13/17 05:15 07/13/17 05:15 Labs: Short CBC 07/13/17 Range/Units 05:15 WBC 8.1 (4.3-11.1) K/mcL Hgb 9.1 L (11.5-15.4) g/dL Hct 30.1 L (35.3-44.9) % Plt Count 260 (140-400) K/mcL Neutrophils # 6.1 (1.6-8.9) K/mcL BMP 07/13/17 05:15 Sodium 145 Potassium 3.8 Chloride 113 H Carbon Dioxide 29 BUN 25 H Creatinine 0.80 Glucose 125 H Calcium 7.8 L - ABG Interpretation ABG results: ABG ABG pH 7.32 pH Units (7.32-7.45) 07/12/17 12:15 ABG pCO2 51 mmHg (35-45) H 07/12/17 12:15 ABG pO2 52 mmHg (85-104) L 07/12/17 12:15 ABG O2 Saturation 83 % (95-98) L 07/12/17 12:15 PT/INR, D-dimer PT 13.4 Seconds (9.4-12.1) H 07/08/17 07:17 - VTE Documentation of Mechanical Device: Venous foot pump, device Consult Discharge Plan - Plan Instructions: Laparoscopic Cholecystectomy (DC) Additional Instructions: General Surgical Discharge Instructions 1. No pushing, pulling, or lifting greater than 15 lbs for 4 weeks (depending upon procedure). 2. You may shower beginning today, but no tub baths, soaking, or swimming for 2 weeks. 3. You may resume driving when you are off narcotics and are safe to react in a car. 4. Take ibuprofen every 8 hours for discomfort. If this does not relieve discomfort, you may take the as needed Percocet. Take narcotics as directed. Do not take more narcotics then directed and do not share your narcotics with any other person. Do not drink alcohol while on narcotics. 5. Take stool softeners (Colace) or a water based laxative (Miralax) while taking narcotics. You may hold for loose stools. 6. Report any fevers greater than 100.5F, increase abdominal discomfort, drainage that looks like pus, increased redness or pain at the surgical site, or any vomiting. 7. Report any pain in the calves, shortness of breath, or rapid heartbeat. 8. Follow-up in the office as directed. 9. If you were prescribed antibiotics, do not stop them without talking to your provider. Referrals: Damon Gonzalez MD [Non-Partnered Physician] - 07/24/17 3:35 pm Virgilio Delcid Jr, MD [Primary Care Provider] - 07/21/17 3:00 pm
[2017-07-13] MEDS: *HR* Metoprolol 5 MG/5 ML VIAL IVP PRN (21:32)
[2017-07-14] MEDS: *HR* Heparin 5,000 UNIT/ML VIAL SQ SCH ×2 (05:50→16:57)
[2017-07-14 06:45] LABS: Basophils % 0.2 %; Eosinophils # 0.1 K/mcL (0.0-0.6); Eosinophils % 0.6 %; Hematocrit 30.6 % (35.3-44.9); Hemoglobin 9.3 g/dL (11.5-15.4); Immature Granulocytes % 2.3 % (0-4); Lymphocytes # 1.5 K/mcL (0.6-4.6); Lymphocytes % 16.9 %; Mean Corpuscular HGB Conc 30.4 g/dL (31.6-35.5); Mean Corpuscular Hemoglobin 30.3 pg (28.0-33.3); Mean Corpuscular Volume 99.7 fL (83.0-100.0); Mean Platelet Volume 9.9 fL (9.4-12.4); Monocytes # 0.5 K/mcL (0.0-1.3); Neutrophils # 6.5 K/mcL (1.6-8.9); Platelet Count 257 K/mcL (140-400); Red Blood Count 3.07 M/mcL (3.82-4.97); Red Cell Distribution Width 16.3 % (11.5-14.5)
[2017-07-14 06:56] LABS: BUN/Creatinine Ratio 29 (6-26); Blood Urea Nitrogen 21 mg/dL (8-23); Calcium 8.3 mg/dL (8.6-10.3); Carbon Dioxide 32 mEq/L (23-29); Chloride 111 mEq/L (98-107); Glucose 89 mg/dL (70-105); Magnesium 1.5 mg/dL (1.6-2.6); Osmolality,Calculated 304 (280-300); Potassium 3.9 mEq/L (3.5-5.1); Sodium 146 mEq/L (136-145); eGFR For African Americans > 60 (> 60); eGFR For Non-African Americans > 60 (> 60)
[2017-07-14] MEDS: Aspirin Enteric Coated 81 MG Tablet PO SCH (09:06)
[2017-07-14] MEDS: Carbidopa/Levodopa ER 50/200 TABLET PO SCH ×3 (09:07→20:08)
--- NOTE | 2017-07-14 09:29 | Palliative Progress Note ---
Date of Encounter: 07/14/17 Time of Encounter: 09:20 - Assessment and plan (1) Altered mental status Current Visit: Yes Status: Acute Assessment and plan: Alert, but continuing to struggle with oral intake, + upper airway noise after feeding. Eating little. Qualifiers: Altered mental status type: unspecified Qualified Code(s): R41.82 - Altered mental status, unspecified (2) Advanced care planning/counseling discussion Current Visit: No Status: Acute Assessment and plan: Daughter Junior BERRY apparently out of town and not expected back until / Fri. Will attempt to contact her by phone today to discuss goals of care. Appears she is still struggle with effective swallow. In the past, Junior has not wanted a PEG. Will re-address. 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 Qualifiers: Dementia behavioral disturbance: without behavioral disturbance Qualified Code(s): G20 - Parkinson's disease; F02.80 - Dementia in other diseases classified elsewhere without behavioral disturbance; F02.80 - Dementia in other diseases classified elsewhere without behavioral disturbance; F02.80 - Dementia in other diseases classified elsewhere without behavioral disturbance (4) Cholecystitis Current Visit: Yes Status: Acute (5) COPD (chronic obstructive pulmonary disease) Current Visit: Yes Status: Acute Qualifiers: Qualified Code(s): J44.9 - Chronic obstructive pulmonary disease, unspecified - Time Spent With Patient Total time spent is greater than 50% in coordination of care (as documented) at patient's floor/unit and/or counseling patient: 25 - 35 minutes - Subjective Interval history: Patient awake and alert - will attempt to answer some questions. + upper airway secretions after taking meds with applesauce. No family present. - Constitutional Vitals: Abnormal lab results RBC 3.07 M/mcL (3.82-4.97) L 07/14/17 05:40 Hgb 9.3 g/dL (11.5-15.4) L 07/14/17 05:40 Hct 30.6 % (35.3-44.9) L 07/14/17 05:40 MCHC 30.4 g/dL (31.6-35.5) L 07/14/17 05:40 RDW 16.3 % (11.5-14.5) H 07/14/17 05:40 PT 13.4 Seconds (9.4-12.1) H 07/08/17 07:17 ABG pCO2 51 mmHg (35-45) H 07/12/17 12:15 ABG pO2 52 mmHg (85-104) L 07/12/17 12:15 ABG Total CO2 28 mEq/L (20-26) H 07/12/17 12:15 ABG O2 Saturation 83 % (95-98) L 07/12/17 12:15 Sodium 146 mEq/L (136-145) H 07/14/17 05:40 Chloride 111 mEq/L (98-107) H 07/14/17 05:40 Carbon Dioxide 32 mEq/L (23-29) H 07/14/17 05:40 BUN/Creatinine Ratio 29 (6-26) H 07/14/17 05:40 POC Glucose 106 (58-89) H 07/13/17 21:00 Calculated Osmolality 304 (280-300) H 07/14/17 05:40 Calcium 8.3 mg/dL (8.6-10.3) L 07/14/17 05:40 Phosphorus 2.4 mg/dL (2.7-4.5) L 07/08/17 09:38 Magnesium 1.5 mg/dL (1.6-2.6) L 07/14/17 05:40 Direct Bilirubin 1.6 mg/dL (0.0-0.2) H 07/07/17 04:44 Indirect Bilirubin 1.6 mg/dL (0.0-1.2) H 07/07/17 04:44 Serum Total Protein 4.9 g/dL (6.4-8.9) L 07/11/17 04:05 Albumin 2.5 g/dL (3.5-5.7) L 07/11/17 04:05 Albumin/Globulin Ratio 1.0 (1.1-2.2) L 07/11/17 04:05 Lipase 7 Units/L (11-82) L 07/09/17 05:05 Urine Clarity Turbid (Clear) A 07/07/17 04:45 Urine Protein 30 mg/dL (Neg-Trace) H 07/07/17 04:45 Urine Bilirubin Moderate (Negative) H 07/07/17 04:45 Ur Leukocyte Esterase Trace (Negative) H 07/07/17 04:45 Urine Microscopic WBC 5-15 per hpf (0-3) H 07/07/17 04:45 Ur Squamous Epith Cells Many per lpf (None-Few) H 07/07/17 04:45 Amorphous Sediment Many (Few) H 07/07/17 04:45 Urine Bacteria Moderate per hpf (None-Few) H 07/07/17 04:45 Granular Casts Few per lpf (None Seen) H 07/07/17 04:45 Urine Yeast Moderate per hpf (None Seen) H 07/07/17 04:45 General appearance: Present: no acute distress - Respiratory Additional comments: Rhonchi throughout anterior chest - Cardiovascular Cardiovascular exam: Present: +S1, +S2 - GI/Abdominal GI/Abdominal exam: Present: normal bowel sounds, soft Additional comments: Sm abd incisions intact - Extremities Exam Extremities exam: Present: normal capillary refill, normal inspection - Neurological Exam Neurological exam: Present: alert Additional comments: pleasantly confused. - Skin Skin exam: Present: dry, pallor, warm Palliative Quality Palliative Quality: Screen for Code Status: Yes, Screen for Goals of Care: Yes, Screen for Pain: Yes, If Pain Regimen Started, Initiate Bowel Regimen: Yes, Screen for Nausea/Vomitting: Yes Code Status: 07/07/17 09:33 CODE [Resuscitation Status: Active] [RES] Routine Comment: Resuscitation Status: [id number] - Labs CBC & Chem 7: 07/14/17 05:40 07/14/17 05:40 Labs: Laboratory Results - last 24 hr 07/12/17 07/13/17 07/13/17 20:41 07:12 11:34 WBC RBC Hgb Hct MCV MCH MCHC RDW Plt Count MPV Immature Gran % Seg Neutrophils % Lymphocytes % Monocytes % Eosinophils % Basophils % Neutrophils # Lymphocytes # Monocytes # Eosinophils # Basophils # Sodium Potassium Chloride Carbon Dioxide BUN Creatinine Est GFR ( Amer) Est GFR (Non-Af Amer) BUN/Creatinine Ratio Glucose POC Glucose 105 H 101 H 113 H Calculated Osmolality Calcium Magnesium 07/13/17 07/13/17 07/13/17 16:14 19:00 21:00 WBC RBC Hgb Hct MCV MCH MCHC RDW Plt Count MPV Immature Gran % Seg Neutrophils % Lymphocytes % Monocytes % Eosinophils % Basophils % Neutrophils # Lymphocytes # Monocytes # Eosinophils # Basophils # Sodium Potassium 4.3 Chloride Carbon Dioxide BUN Creatinine Est GFR ( Amer) Est GFR (Non-Af Amer) BUN/Creatinine Ratio Glucose POC Glucose 120 H 106 H Calculated Osmolality Calcium Magnesium 07/14/17 07/14/17 05:40 05:40 WBC 8.8 RBC 3.07 L Hgb 9.3 L Hct 30.6 L MCV 99.7 MCH 30.3 MCHC 30.4 L RDW 16.3 H Plt Count 257 MPV 9.9 Immature Gran % 2.3 Seg Neutrophils % 74.0 Lymphocytes % 16.9 Monocytes % 6.0 Eosinophils % 0.6 Basophils % 0.2 Neutrophils # 6.5 Lymphocytes # 1.5 Monocytes # 0.5 Eosinophils # 0.1 Basophils # 0.0 Sodium 146 H Potassium 3.9 Chloride 111 H Carbon Dioxide 32 H BUN 21 Creatinine 0.72 Est GFR ( Amer) > 60 Est GFR (Non-Af Amer) > 60 BUN/Creatinine Ratio 29 H Glucose 89 POC Glucose Calculated Osmolality 304 H Calcium 8.3 L Magnesium 1.5 L - ABG Interpretation ABG results: ABG ABG pH 7.32 pH Units (7.32-7.45) 07/12/17 12:15 ABG pCO2 51 mmHg (35-45) H 07/12/17 12:15 ABG pO2 52 mmHg (85-104) L 07/12/17 12:15 ABG O2 Saturation 83 % (95-98) L 07/12/17 12:15 PT/INR, D-dimer PT 13.4 Seconds (9.4-12.1) H 07/08/17 07:17 Consult Discharge Plan - Plan Instructions: Laparoscopic Cholecystectomy (DC) Additional Instructions: General Surgical Discharge Instructions 1. No pushing, pulling, or lifting greater than 15 lbs for 4 weeks (depending upon procedure). 2. You may shower beginning today, but no tub baths, soaking, or swimming for 2 weeks. 3. You may resume driving when you are off narcotics and are safe to react in a car. 4. Take ibuprofen every 8 hours for discomfort. If this does not relieve discomfort, you may take the as needed Percocet. Take narcotics as directed. Do not take more narcotics then directed and do not share your narcotics with any other person. Do not drink alcohol while on narcotics. 5. Take stool softeners (Colace) or a water based laxative (Miralax) while taking narcotics. You may hold for loose stools. 6. Report any fevers greater than 100.5F, increase abdominal discomfort, drainage that looks like pus, increased redness or pain at the surgical site, or any vomiting. 7. Report any pain in the calves, shortness of breath, or rapid heartbeat. 8. Follow-up in the office as directed. 9. If you were prescribed antibiotics, do not stop them without talking to your provider. Referrals: Damon Gonzalez MD [Non-Partnered Physician] - 07/24/17 3:35 pm Virgilio Delcid Jr, MD [Primary Care Provider] - 07/21/17 3:00 pm
[2017-07-14] MEDS: *HR* Metoprolol 5 MG/5 ML VIAL IVP PRN (12:06)
--- NOTE | 2017-07-14 15:10 | Internal Med Progress Note ---
Date of Encounter: 07/14/17 Time of Encounter: 15:10 - Assessment and plan (1) Ascending cholangitis Current Visit: Yes Status: Acute Assessment and plan: Status post ERCP with sphincterotomy and stent placement. Bilirubin back to normal Continue oral diet. Completed course of Cipro and Flagyl. (2) Pancreatitis Current Visit: Yes Status: Acute Assessment and plan: Likely gallstone pancreatitis. Lipase was elevated at 584 on admission. Repeat lipase post ERCP was within normal limits. Appreciate surgery input. Status post laparoscopic cholecystectomy POD 5. Qualifiers: Chronicity: acute Pancreatitis type: biliary Acute pancreatitis complication: no infection or necrosis Qualified Code(s): K85.10 - Biliary acute pancreatitis without necrosis or infection (3) DVT prophylaxis Current Visit: No Status: Acute Assessment and plan: Subcutaneous heparin. 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 Fall precautions. Continue with Sinemet. Patient palliative care recommendations. Concern for dysphagia and aspiration. We will get speech and swallow evaluation. Proceed with barium swallow. Qualifiers: Dementia behavioral disturbance: without behavioral disturbance Qualified Code(s): G20 - Parkinson's disease; F02.80 - Dementia in other diseases classified elsewhere without behavioral disturbance; F02.80 - Dementia in other diseases classified elsewhere without behavioral disturbance; F02.80 - Dementia in other diseases classified elsewhere without behavioral disturbance (5) Hypokalemia Current Visit: Yes Status: Acute (6) Hypomagnesemia Current Visit: Yes Status: Acute (7) Fluid overload Current Visit: Yes Status: Acute Assessment and plan: Chest x-ray showed right pleural effusion, bibasilar atelectasis and mild vascular congestion. Continue with Lasix daily. Monitor fluid status closely. BiPAP as needed for labored breathing. Qualifiers: Hypervolemia type: other Qualified Code(s): E87.79 - Other fluid overload (8) Acute respiratory failure with hypoxia Current Visit: Yes Status: Acute Assessment and plan: Oxygen by nasal cannula. BiPAP as needed. Incentive spirometry. Swallow evaluation to rule out aspiration. - Subjective Interval history: Patient cannot provide history due to dementia. She is currently asleep, arousable, answers simple questions with yes/no answers. She is status post laparoscopic cholecystectomy POD 5. Per her nurse the patient has been more somnolent today, less interactive. - Constitutional Vitals: Temp Pulse Resp BP Pulse Ox 98.3 F 84 20 159/96 97 07/14/17 11:54 07/14/17 11:54 07/14/17 11:54 07/14/17 12:10 07/14/17 11:54 General appearance: Present: A&O X 0, no acute distress - Eye Eye exam: Present: PERRL, conjuntiva pink, sclera anicteric Pupils: Present: PERRL - Respiratory Respiratory exam: Present: decreased breath sounds, rales. Absent: accessory muscle use, rhonchi, wheezes - Cardiovascular Cardiovascular exam: Present: RRR, +S1, +S2. Absent: diastolic murmur, gallop, rubs, systolic murmur - GI/Abdominal GI/Abdominal exam: Present: normal bowel sounds, soft, no peritoneal signs. Absent: distended, tenderness - Extremities Exam Extremities exam: Present: warm, radial pulses palpable and symmetrical. Absent : calf tenderness, cyanotic, pedal edema Internal Medicine: Result - Labs CBC & Chem 7: 07/14/17 05:40 07/14/17 05:40 Labs: Short CBC 07/14/17 Range/Units 05:40 WBC 8.8 (4.3-11.1) K/mcL Hgb 9.3 L (11.5-15.4) g/dL Hct 30.6 L (35.3-44.9) % Plt Count 257 (140-400) K/mcL Neutrophils # 6.5 (1.6-8.9) K/mcL BMP 07/13/17 07/14/17 19:00 05:40 Sodium 146 H Potassium 4.3 3.9 Chloride 111 H Carbon Dioxide 32 H BUN 21 Creatinine 0.72 Glucose 89 Calcium 8.3 L - ABG Interpretation ABG results: ABG ABG pH 7.32 pH Units (7.32-7.45) 07/12/17 12:15 ABG pCO2 51 mmHg (35-45) H 07/12/17 12:15 ABG pO2 52 mmHg (85-104) L 07/12/17 12:15 ABG O2 Saturation 83 % (95-98) L 07/12/17 12:15 PT/INR, D-dimer PT 13.4 Seconds (9.4-12.1) H 07/08/17 07:17 - VTE Documentation of Mechanical Device: Venous foot pump, device Consult Discharge Plan - Plan Instructions: Laparoscopic Cholecystectomy (DC) Additional Instructions: General Surgical Discharge Instructions 1. No pushing, pulling, or lifting greater than 15 lbs for 4 weeks (depending upon procedure). 2. You may shower beginning today, but no tub baths, soaking, or swimming for 2 weeks. 3. You may resume driving when you are off narcotics and are safe to react in a car. 4. Take ibuprofen every 8 hours for discomfort. If this does not relieve discomfort, you may take the as needed Percocet. Take narcotics as directed. Do not take more narcotics then directed and do not share your narcotics with any other person. Do not drink alcohol while on narcotics. 5. Take stool softeners (Colace) or a water based laxative (Miralax) while taking narcotics. You may hold for loose stools. 6. Report any fevers greater than 100.5F, increase abdominal discomfort, drainage that looks like pus, increased redness or pain at the surgical site, or any vomiting. 7. Report any pain in the calves, shortness of breath, or rapid heartbeat. 8. Follow-up in the office as directed. 9. If you were prescribed antibiotics, do not stop them without talking to your provider. Referrals: Damon Gonzalez MD [Non-Partnered Physician] - 07/24/17 3:35 pm Virgilio Delcid Jr, MD [Primary Care Provider] - 07/21/17 3:00 pm
[2017-07-14] MEDS ORDERED: GuaiFENesin Liq 200 MG/10 ML UDC PO PRN (16:06)
[2017-07-14] MEDS ORDERED: Magnesium Sulfate 2 GM in D5% in Water 100 ML IVPB ONE (16:15)
[2017-07-14] MEDS: Furosemide 20 MG/2 ML VIAL IVP SCH (16:54)
[2017-07-14] MEDS: *HR* Metoprolol 5 MG/5 ML VIAL IVP SCH ×2 (16:55→23:24)
[2017-07-14] MEDS: Miconazole w/zinc oxide&karaya 92 APPL/92 GM TUBE TP SCH ×2 (16:58→20:08)
[2017-07-14] MEDS: Ipratropium/Albuterol Neb 3 ML IH PRN (23:34)
[2017-07-15 05:02] LABS: Basophils % 0.2 %; Eosinophils # 0.1 K/mcL (0.0-0.6); Eosinophils % 0.8 %; Hematocrit 31.1 % (35.3-44.9); Hemoglobin 9.3 g/dL (11.5-15.4); Immature Granulocytes % 1.5 % (0-4); Lymphocytes # 1.7 K/mcL (0.6-4.6); Lymphocytes % 17.5 %; Mean Corpuscular HGB Conc 29.9 g/dL (31.6-35.5); Mean Corpuscular Volume 100.3 fL (83.0-100.0); Mean Platelet Volume 9.9 fL (9.4-12.4); Monocytes # 0.6 K/mcL (0.0-1.3); Monocytes % 6.3 %; Neutrophils # 7.3 K/mcL (1.6-8.9); Nucleated Red Blood Cells 0.4 /100 WBC (0); Platelet Count 270 K/mcL (140-400); Red Cell Distribution Width 16.1 % (11.5-14.5); Segmented Neutrophils % 73.7 %
[2017-07-15 05:37] LABS: BUN/Creatinine Ratio 33 (6-26); Blood Urea Nitrogen 24 mg/dL (8-23); Calcium 8.3 mg/dL (8.6-10.3); Carbon Dioxide 31 mEq/L (23-29); Chloride 113 mEq/L (98-107); Glucose 102 mg/dL (70-105); Osmolality,Calculated 308 (280-300); Potassium 4.2 mEq/L (3.5-5.1); Sodium 147 mEq/L (136-145); eGFR For African Americans > 60 (> 60); eGFR For Non-African Americans > 60 (> 60)
[2017-07-15] MEDS: *HR* Heparin 5,000 UNIT/ML VIAL SQ SCH ×2 (06:16→17:09)
[2017-07-15] MEDS: *HR* Metoprolol 5 MG/5 ML VIAL IVP SCH ×3 (06:16→17:09)
[2017-07-15] MEDS: Aspirin Enteric Coated 81 MG Tablet PO SCH (08:37)
[2017-07-15] MEDS: Furosemide 20 MG/2 ML VIAL IVP SCH (08:37)
[2017-07-15] MEDS: Miconazole w/zinc oxide&karaya 92 APPL/92 GM TUBE TP SCH ×2 (08:37→20:54)
[2017-07-15] MEDS: Carbidopa/Levodopa ER 50/200 TABLET PO SCH ×3 (08:37→20:53)
--- NOTE | 2017-07-15 10:41 | Palliative Progress Note ---
Date of Encounter: 07/15/17 Time of Encounter: 09:05 - Assessment and plan (1) Altered mental status Current Visit: Yes Status: Acute Assessment and plan: Improved, did well with diet this am. MBS noted. She appears back to baseline. Qualifiers: Altered mental status type: unspecified Qualified Code(s): R41.82 - Altered mental status, unspecified (2) Advanced care planning/counseling discussion Current Visit: No Status: Acute Assessment and plan: Unable to reach daughter this am - she reportedly is in [place] expected to return today or tomorrow. D/W Dr. Hagen - Daughter has not desired hospice in the past, but has continued to desire home health care. 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 Qualifiers: Dementia behavioral disturbance: without behavioral disturbance Qualified Code(s): G20 - Parkinson's disease; F02.80 - Dementia in other diseases classified elsewhere without behavioral disturbance; F02.80 - Dementia in other diseases classified elsewhere without behavioral disturbance; F02.80 - Dementia in other diseases classified elsewhere without behavioral disturbance (4) Cholecystitis Current Visit: Yes Status: Acute (5) COPD (chronic obstructive pulmonary disease) Current Visit: Yes Status: Acute Qualifiers: Qualified Code(s): J44.9 - Chronic obstructive pulmonary disease, unspecified - Time Spent With Patient Total time spent is greater than 50% in coordination of care (as documented) at patient's floor/unit and/or counseling patient: 25 - 35 minutes - Subjective Interval history: Patient awake and alert, smiling. Just finished breakfast. MBS reviewed and appreciated. She remains on previous diet of pureed diet and honey thick liquids. No family present. I attempted to call daughter with no answer. - Constitutional Vitals: Abnormal lab results RBC 3.10 M/mcL (3.82-4.97) L 07/15/17 04:40 Hgb 9.3 g/dL (11.5-15.4) L 07/15/17 04:40 Hct 31.1 % (35.3-44.9) L 07/15/17 04:40 MCV 100.3 fL (83.0-100.0) H 07/15/17 04:40 MCHC 29.9 g/dL (31.6-35.5) L 07/15/17 04:40 RDW 16.1 % (11.5-14.5) H 07/15/17 04:40 Nucleated RBCs/100 WBC 0.4 /100 WBC (0) H 07/15/17 04:40 PT 13.4 Seconds (9.4-12.1) H 07/08/17 07:17 ABG pCO2 51 mmHg (35-45) H 07/12/17 12:15 ABG pO2 52 mmHg (85-104) L 07/12/17 12:15 ABG Total CO2 28 mEq/L (20-26) H 07/12/17 12:15 ABG O2 Saturation 83 % (95-98) L 07/12/17 12:15 Sodium 147 mEq/L (136-145) H 07/15/17 04:40 Chloride 113 mEq/L (98-107) H 07/15/17 04:40 Carbon Dioxide 31 mEq/L (23-29) H 07/15/17 04:40 BUN 24 mg/dL (8-23) H 07/15/17 04:40 BUN/Creatinine Ratio 33 (6-26) H 07/15/17 04:40 POC Glucose 136 (58-89) H 07/14/17 20:32 Calculated Osmolality 308 (280-300) H 07/15/17 04:40 Calcium 8.3 mg/dL (8.6-10.3) L 07/15/17 04:40 Phosphorus 2.4 mg/dL (2.7-4.5) L 07/08/17 09:38 Magnesium 1.5 mg/dL (1.6-2.6) L 07/14/17 05:40 Direct Bilirubin 1.6 mg/dL (0.0-0.2) H 07/07/17 04:44 Indirect Bilirubin 1.6 mg/dL (0.0-1.2) H 07/07/17 04:44 Serum Total Protein 4.9 g/dL (6.4-8.9) L 07/11/17 04:05 Albumin 2.5 g/dL (3.5-5.7) L 07/11/17 04:05 Albumin/Globulin Ratio 1.0 (1.1-2.2) L 07/11/17 04:05 Lipase 7 Units/L (11-82) L 07/09/17 05:05 Urine Clarity Turbid (Clear) A 07/07/17 04:45 Urine Protein 30 mg/dL (Neg-Trace) H 07/07/17 04:45 Urine Bilirubin Moderate (Negative) H 07/07/17 04:45 Ur Leukocyte Esterase Trace (Negative) H 07/07/17 04:45 Urine Microscopic WBC 5-15 per hpf (0-3) H 07/07/17 04:45 Ur Squamous Epith Cells Many per lpf (None-Few) H 07/07/17 04:45 Amorphous Sediment Many (Few) H 07/07/17 04:45 Urine Bacteria Moderate per hpf (None-Few) H 07/07/17 04:45 Granular Casts Few per lpf (None Seen) H 07/07/17 04:45 Urine Yeast Moderate per hpf (None Seen) H 07/07/17 04:45 General appearance: Present: no acute distress - Respiratory Respiratory exam: Present: CTAB Additional comments: Shallow inspiratory effort - Cardiovascular Cardiovascular exam: Present: +S1, +S2 - GI/Abdominal GI/Abdominal exam: Present: normal bowel sounds, soft - Extremities Exam Extremities exam: Present: normal capillary refill, normal inspection - Neurological Exam Neurological exam: Present: alert Additional comments: Can tell me her first name, knows she is in hospital - Skin Skin exam: Present: dry, pallor, warm Palliative Quality Palliative Quality: Screen for Code Status: Yes, Screen for Goals of Care: Yes, Screen for Pain: Yes, If Pain Regimen Started, Initiate Bowel Regimen: Yes, Screen for Nausea/Vomitting: Yes Code Status: 07/07/17 09:33 CODE [Resuscitation Status: Active] [RES] Routine Comment: Resuscitation Status: [id number] - Labs CBC & Chem 7: 07/15/17 04:40 07/15/17 04:40 Labs: Laboratory Results - last 24 hr 07/14/17 07/14/17 07/14/17 08:11 11:56 16:48 WBC RBC Hgb Hct MCV MCH MCHC RDW Plt Count MPV Immature Gran % Seg Neutrophils % Lymphocytes % Monocytes % Eosinophils % Basophils % Neutrophils # Lymphocytes # Monocytes # Eosinophils # Basophils # Nucleated RBCs/100 WBC Sodium Potassium Chloride Carbon Dioxide BUN Creatinine Est GFR ( Amer) Est GFR (Non-Af Amer) BUN/Creatinine Ratio Glucose POC Glucose 85 132 H 101 H Calculated Osmolality Calcium 07/14/17 07/14/17 07/15/17 20:32 23:10 04:40 WBC 9.9 RBC 3.10 L Hgb 9.3 L Hct 31.1 L MCV 100.3 H MCH 30.0 MCHC 29.9 L RDW 16.1 H Plt Count 270 MPV 9.9 Immature Gran % 1.5 Seg Neutrophils % 73.7 Lymphocytes % 17.5 Monocytes % 6.3 Eosinophils % 0.8 Basophils % 0.2 Neutrophils # 7.3 Lymphocytes # 1.7 Monocytes # 0.6 Eosinophils # 0.1 Basophils # 0.0 Nucleated RBCs/100 WBC 0.4 H Sodium Potassium 4.3 Chloride Carbon Dioxide BUN Creatinine Est GFR ( Amer) Est GFR (Non-Af Amer) BUN/Creatinine Ratio Glucose POC Glucose 136 H Calculated Osmolality Calcium 07/15/17 04:40 WBC RBC Hgb Hct MCV MCH MCHC RDW Plt Count MPV Immature Gran % Seg Neutrophils % Lymphocytes % Monocytes % Eosinophils % Basophils % Neutrophils # Lymphocytes # Monocytes # Eosinophils # Basophils # Nucleated RBCs/100 WBC Sodium 147 H Potassium 4.2 Chloride 113 H Carbon Dioxide 31 H BUN 24 H Creatinine 0.72 Est GFR ( Amer) > 60 Est GFR (Non-Af Amer) > 60 BUN/Creatinine Ratio 33 H Glucose 102 POC Glucose Calculated Osmolality 308 H Calcium 8.3 L - Impressions Impressions Videofluoroscopic Swallow 07/14/17 10:42 IMPRESSION: Swallowing mechanism grossly within normal limits without evidence of aspiration. Please see separate speech pathology report for full discussion of findings and recommendations. D/ / Tim Cary MD / Tim Cary MD Interpreting Provider: Tim Cary MD - ABG Interpretation ABG results: ABG ABG pH 7.32 pH Units (7.32-7.45) 07/12/17 12:15 ABG pCO2 51 mmHg (35-45) H 07/12/17 12:15 ABG pO2 52 mmHg (85-104) L 07/12/17 12:15 ABG O2 Saturation 83 % (95-98) L 07/12/17 12:15 PT/INR, D-dimer PT 13.4 Seconds (9.4-12.1) H 07/08/17 07:17 Consult Discharge Plan - Plan Instructions: Laparoscopic Cholecystectomy (DC) Additional Instructions: General Surgical Discharge Instructions 1. No pushing, pulling, or lifting greater than 15 lbs for 4 weeks (depending upon procedure). 2. You may shower beginning today, but no tub baths, soaking, or swimming for 2 weeks. 3. You may resume driving when you are off narcotics and are safe to react in a car. 4. Take ibuprofen every 8 hours for discomfort. If this does not relieve discomfort, you may take the as needed Percocet. Take narcotics as directed. Do not take more narcotics then directed and do not share your narcotics with any other person. Do not drink alcohol while on narcotics. 5. Take stool softeners (Colace) or a water based laxative (Miralax) while taking narcotics. You may hold for loose stools. 6. Report any fevers greater than 100.5F, increase abdominal discomfort, drainage that looks like pus, increased redness or pain at the surgical site, or any vomiting. 7. Report any pain in the calves, shortness of breath, or rapid heartbeat. 8. Follow-up in the office as directed. 9. If you were prescribed antibiotics, do not stop them without talking to your provider. Referrals: Damon Gonzalez MD [Non-Partnered Physician] - 07/24/17 3:35 pm Virgilio Delcid Jr, MD [Primary Care Provider] - 07/21/17 3:00 pm
[2017-07-15] MEDS: *HR* Morphine 2 MG/ML SYRINGE IVP PRN (13:11)
--- NOTE | 2017-07-15 14:39 | Internal Med Progress Note ---
Date of Encounter: 07/15/17 Time of Encounter: 14:37 - Subjective Interval history: Interval changes: POD 6 A&O x0 following morphine. Per RN she was Ox3 earlier today Physical Exam: See below Assessment and plan: Ascending cholangitis Status post ERCP with sphincterotomy and stent placement. Bilirubin back to normal Continue oral diet. Completed course of Cipro and Flagyl. Home with pallitive care: [facility] [place] [facility] referral made Awaiting daughters return before d/c as she is primary care provider Acute Pancreatitis Likely gallstone pancreatitis. Lipase was elevated at 584 on admission. Repeat lipase post ERCP was within normal limits. Status post laparoscopic cholecystectomy POD 5. Parkinson's disease withdementia: Continue with Sinemet and supportive care - Constitutional Vitals: Temp Pulse Resp BP Pulse Ox 98.0 F 72 17 179/85 98 07/15/17 12:12 07/15/17 12:12 07/15/17 12:12 07/15/17 12:12 07/15/17 12:12 General appearance: Present: A&O X 0, no acute distress - Head Head exam: Present: atraumatic, normocephalic - Eye Eye exam: Present: PERRL, conjuntiva pink, sclera anicteric Pupils: Present: PERRL - Neck Neck exam general surgery: Present: supple, trachea midline. Absent: lymphadenopathy - Respiratory Respiratory exam: Present: CTAB. Absent: accessory muscle use, rales, rhonchi, wheezes - Cardiovascular Cardiovascular exam: Present: RRR, +S1, +S2. Absent: diastolic murmur, gallop, rubs, systolic murmur - GI/Abdominal GI/Abdominal exam: Present: normal bowel sounds, soft, no peritoneal signs. Absent: diminished bowel sounds, distended, rebound, rigid, tenderness - Extremities Exam Extremities exam: Present: warm, radial pulses palpable and symmetrical. Absent : calf tenderness, cyanotic, pedal edema - Expanded Lower Extremities Exam Lower Leg exam: Present: normal inspection. Absent: deformity, swelling - Neurological Exam Neurological exam: Present: CN II-XII intact, oriented X3, no focal deficits. Absent: pronater drift, facial droop, speech deficit - Skin Skin exam: Present: dry, intact Internal Medicine: Result - Labs CBC & Chem 7: 07/15/17 04:40 07/15/17 04:40 Labs: Short CBC 07/15/17 Range/Units 04:40 WBC 9.9 (4.3-11.1) K/mcL Hgb 9.3 L (11.5-15.4) g/dL Hct 31.1 L (35.3-44.9) % Plt Count 270 (140-400) K/mcL Neutrophils # 7.3 (1.6-8.9) K/mcL BMP 07/14/17 07/15/17 23:10 04:40 Sodium 147 H Potassium 4.3 4.2 Chloride 113 H Carbon Dioxide 31 H BUN 24 H Creatinine 0.72 Glucose 102 Calcium 8.3 L - ABG Interpretation ABG results: ABG ABG pH 7.32 pH Units (7.32-7.45) 07/12/17 12:15 ABG pCO2 51 mmHg (35-45) H 07/12/17 12:15 ABG pO2 52 mmHg (85-104) L 07/12/17 12:15 ABG O2 Saturation 83 % (95-98) L 07/12/17 12:15 PT/INR, D-dimer PT 13.4 Seconds (9.4-12.1) H 07/08/17 07:17 - Impressions Impressions Videofluoroscopic Swallow 07/14/17 10:42 IMPRESSION: Swallowing mechanism grossly within normal limits without evidence of aspiration. Please see separate speech pathology report for full discussion of findings and recommendations. D/ / Tim Cary MD / Tim Cary MD Interpreting Provider: Tim Cary MD - VTE Documentation of Mechanical Device: Venous foot pump, device Consult Discharge Plan - Plan Instructions: Laparoscopic Cholecystectomy (DC) Additional Instructions: General Surgical Discharge Instructions 1. No pushing, pulling, or lifting greater than 15 lbs for 4 weeks (depending upon procedure). 2. You may shower beginning today, but no tub baths, soaking, or swimming for 2 weeks. 3. You may resume driving when you are off narcotics and are safe to react in a car. 4. Take ibuprofen every 8 hours for discomfort. If this does not relieve discomfort, you may take the as needed Percocet. Take narcotics as directed. Do not take more narcotics then directed and do not share your narcotics with any other person. Do not drink alcohol while on narcotics. 5. Take stool softeners (Colace) or a water based laxative (Miralax) while taking narcotics. You may hold for loose stools. 6. Report any fevers greater than 100.5F, increase abdominal discomfort, drainage that looks like pus, increased redness or pain at the surgical site, or any vomiting. 7. Report any pain in the calves, shortness of breath, or rapid heartbeat. 8. Follow-up in the office as directed. 9. If you were prescribed antibiotics, do not stop them without talking to your provider. Referrals: Damon Gonzalez MD [Non-Partnered Physician] - 07/24/17 3:35 pm Virgilio Delcid Jr, MD [Primary Care Provider] - 07/21/17 3:00 pm
[2017-07-15] MEDS ORDERED: Acetaminophen 325 MG TABLET PO PRN (14:56)
[2017-07-15] MEDS: Sennosides/Docusate Sodium TABLET PO SCH (20:53)
[2017-07-16] MEDS: *HR* Metoprolol 5 MG/5 ML VIAL IVP SCH ×5 (00:12→23:32)
[2017-07-16] MEDS: Ipratropium/Albuterol Neb 3 ML IH PRN (04:45)
[2017-07-16 04:57] LABS: Basophils % 0.2 %; Eosinophils # 0.1 K/mcL (0.0-0.6); Hematocrit 30.5 % (35.3-44.9); Hemoglobin 9.2 g/dL (11.5-15.4); Immature Granulocytes % 1.6 % (0-4); Lymphocytes # 1.8 K/mcL (0.6-4.6); Lymphocytes % 17.7 %; Mean Corpuscular HGB Conc 30.2 g/dL (31.6-35.5); Mean Corpuscular Hemoglobin 29.8 pg (28.0-33.3); Mean Corpuscular Volume 98.7 fL (83.0-100.0); Mean Platelet Volume 10.1 fL (9.4-12.4); Monocytes # 0.7 K/mcL (0.0-1.3); Neutrophils # 7.5 K/mcL (1.6-8.9); Platelet Count 290 K/mcL (140-400); Red Blood Count 3.09 M/mcL (3.82-4.97); Red Cell Distribution Width 16.2 % (11.5-14.5); Segmented Neutrophils % 72.5 %
[2017-07-16 05:19] LABS: BUN/Creatinine Ratio 33 (6-26); Blood Urea Nitrogen 23 mg/dL (8-23); Calcium 8.5 mg/dL (8.6-10.3); Carbon Dioxide 35 mEq/L (23-29); Chloride 110 mEq/L (98-107); Glucose 110 mg/dL (70-105); Osmolality,Calculated 312 (280-300); Sodium 149 mEq/L (136-145); eGFR For African Americans > 60 (> 60); eGFR For Non-African Americans > 60 (> 60)
[2017-07-16] MEDS: *HR* Heparin 5,000 UNIT/ML VIAL SQ SCH ×2 (05:21→17:52)
[2017-07-16] MEDS: Furosemide 20 MG/2 ML VIAL IVP SCH (08:20)
[2017-07-16] MEDS: Sennosides/Docusate Sodium TABLET PO SCH ×2 (08:20→20:31)
[2017-07-16] MEDS: Carbidopa/Levodopa ER 50/200 TABLET PO SCH ×3 (08:20→20:31)
[2017-07-16] MEDS: Aspirin Enteric Coated 81 MG Tablet PO SCH (08:20)
[2017-07-16] MEDS: Miconazole w/zinc oxide&karaya 92 APPL/92 GM TUBE TP SCH ×2 (08:20→20:31)
--- NOTE | 2017-07-16 10:42 | Event Note ---
Date of Encounter: 07/16/17 Time of Encounter: 10:40 Patient awakens easily - appears comfortable. Moist cough noted. Denies pain. No visitors present. I did get in touch with her daughter Junior yesterday late afternoon. She is still in [place] and states she would not be traveling home until . Asking if we can hold her here until . Explained that if hospitalist feels she is stable and clinically ready for discharge, she would be discharged. When asked who we should contact if discharged, she stated pt's caregiver, Kaitlin at [phone]. Discussed with , pt primary RN, and Katalina, case checker. She will be renewal to [facility].
[2017-07-16] MEDS ORDERED: Bisacodyl 10 MG RECTAL SUPPOSITORY RC ONE (15:45)
--- NOTE | 2017-07-16 15:59 | Internal Med Progress Note ---
Date of Encounter: 07/16/17 Time of Encounter: 15:56 - Subjective Interval history: Interval changes: POD 6 A&O x0 following morphine. Per RN she was Ox3 earlier today Physical Exam: See below Assessment and plan: Ascending cholangitis Status post ERCP with sphincterotomy and stent placement. Bilirubin back to normal Continue oral diet. Completed course of Cipro and Flagyl. Home with pallitive care: [facility] [place] [facility] referral made Awaiting daughters return before d/c as she is primary care provider Acute Pancreatitis Likely gallstone pancreatitis. Lipase was elevated at 584 on admission. Repeat lipase post ERCP was within normal limits. Status post laparoscopic cholecystectomy POD 5. Parkinson's disease withdementia: Continue with Sinemet and supportive care General appearance: Present: A&O X 0, no acute distress - Head Head exam: Present: atraumatic, normocephalic - Eye Eye exam: Present: PERRL, conjuntiva pink, sclera anicteric Pupils: Present: PERRL - Neck Neck exam general surgery: Present: supple, trachea midline. Absent: lymphadenopathy - Respiratory Respiratory exam: Present: CTAB. Absent: accessory muscle use, rales, rhonchi, wheezes - Cardiovascular Cardiovascular exam: Present: RRR, +S1, +S2. Absent: diastolic murmur, gallop, rubs, systolic murmur - GI/Abdominal GI/Abdominal exam: Present: normal bowel sounds, soft, no peritoneal signs. Absent: diminished bowel sounds, distended, rebound, rigid, tenderness - Extremities Exam Extremities exam: Present: warm, radial pulses palpable and symmetrical. Absent : calf tenderness, cyanotic, pedal edema - Expanded Lower Extremities Exam Lower Leg exam: Present: normal inspection. Absent: deformity, swelling - Neurological Exam Neurological exam: Present: CN II-XII intact, oriented X3, no focal deficits. Absent: pronater drift, facial droop, speech deficit - Skin Skin exam: Present: dry, intact - Constitutional Vitals: Temp Pulse Resp BP Pulse Ox 99.2 F 85 16 128/78 99 07/16/17 10:56 07/16/17 15:26 07/16/17 10:56 07/16/17 10:56 07/16/17 10:56 General appearance: Present: A&O X 0, no acute distress Internal Medicine: Result - Labs CBC & Chem 7: 07/16/17 04:10 07/16/17 04:10 Labs: Short CBC 07/16/17 Range/Units 04:10 WBC 10.3 (4.3-11.1) K/mcL Hgb 9.2 L (11.5-15.4) g/dL Hct 30.5 L (35.3-44.9) % Plt Count 290 (140-400) K/mcL Neutrophils # 7.5 (1.6-8.9) K/mcL BMP 07/16/17 04:10 Sodium 149 H Potassium 4.0 Chloride 110 H Carbon Dioxide 35 H BUN 23 Creatinine 0.69 Glucose 110 H Calcium 8.5 L - ABG Interpretation ABG results: ABG ABG pH 7.32 pH Units (7.32-7.45) 07/12/17 12:15 ABG pCO2 51 mmHg (35-45) H 07/12/17 12:15 ABG pO2 52 mmHg (85-104) L 07/12/17 12:15 ABG O2 Saturation 83 % (95-98) L 07/12/17 12:15 PT/INR, D-dimer PT 13.4 Seconds (9.4-12.1) H 07/08/17 07:17 - VTE Documentation of Mechanical Device: Venous foot pump, device Consult Discharge Plan - Plan Instructions: Laparoscopic Cholecystectomy (DC) Additional Instructions: General Surgical Discharge Instructions 1. No pushing, pulling, or lifting greater than 15 lbs for 4 weeks (depending upon procedure). 2. You may shower beginning today, but no tub baths, soaking, or swimming for 2 weeks. 3. You may resume driving when you are off narcotics and are safe to react in a car. 4. Take ibuprofen every 8 hours for discomfort. If this does not relieve discomfort, you may take the as needed Percocet. Take narcotics as directed. Do not take more narcotics then directed and do not share your narcotics with any other person. Do not drink alcohol while on narcotics. 5. Take stool softeners (Colace) or a water based laxative (Miralax) while taking narcotics. You may hold for loose stools. 6. Report any fevers greater than 100.5F, increase abdominal discomfort, drainage that looks like pus, increased redness or pain at the surgical site, or any vomiting. 7. Report any pain in the calves, shortness of breath, or rapid heartbeat. 8. Follow-up in the office as directed. 9. If you were prescribed antibiotics, do not stop them without talking to your provider. Referrals: Damon Gonzalez MD [Non-Partnered Physician] - 07/24/17 3:35 pm Virgilio Delcid Jr, MD [Primary Care Provider] - 07/21/17 3:00 pm
[2017-07-17] MEDS: *HR* Heparin 5,000 UNIT/ML VIAL SQ SCH ×2 (05:07→17:19)
[2017-07-17] MEDS: *HR* Metoprolol 5 MG/5 ML VIAL IVP SCH ×4 (05:07→23:45)
[2017-07-17] MEDS: Sennosides/Docusate Sodium TABLET PO SCH ×2 (08:17→20:51)
[2017-07-17] MEDS: Aspirin Enteric Coated 81 MG Tablet PO SCH (08:17)
[2017-07-17] MEDS: Carbidopa/Levodopa ER 50/200 TABLET PO SCH ×3 (08:17→20:51)
[2017-07-17] MEDS: Miconazole w/zinc oxide&karaya 92 APPL/92 GM TUBE TP SCH ×2 (08:18→20:52)
--- NOTE | 2017-07-17 15:44 | Internal Med Progress Note ---
Date of Encounter: 07/17/17 Time of Encounter: 15:39 - Subjective Interval history: Interval changes: POD 6 A&O x0 following morphine. Per RN she was Ox3 earlier today Physical Exam: See below Assessment and plan: Ascending cholangitis Status post ERCP with sphincterotomy and stent placement. Bilirubin back to normal Continue oral diet. Completed course of Cipro and Flagyl. Home with pallitive care: [facility] [place] [facility] referral made Awaiting daughters return before d/c as she is primary care provider Acute Pancreatitis Likely gallstone pancreatitis. Lipase was elevated at 584 on admission. Repeat lipase post ERCP was within normal limits. Status post laparoscopic cholecystectomy POD 5. Parkinson's disease withdementia: Continue with Sinemet and supportive care General appearance: Present: A&O X 0, no acute distress - Head Head exam: Present: atraumatic, normocephalic - Eye Eye exam: Present: PERRL, conjuntiva pink, sclera anicteric Pupils: Present: PERRL - Neck Neck exam general surgery: Present: supple, trachea midline. Absent: lymphadenopathy - Respiratory Respiratory exam: Present: CTAB. Absent: accessory muscle use, rales, rhonchi, wheezes - Cardiovascular Cardiovascular exam: Present: RRR, +S1, +S2. Absent: diastolic murmur, gallop, rubs, systolic murmur - GI/Abdominal GI/Abdominal exam: Present: normal bowel sounds, soft, no peritoneal signs. Absent: diminished bowel sounds, distended, rebound, rigid, tenderness - Extremities Exam Extremities exam: Present: warm, radial pulses palpable and symmetrical. Absent : calf tenderness, cyanotic, pedal edema - Expanded Lower Extremities Exam Lower Leg exam: Present: normal inspection. Absent: deformity, swelling - Neurological Exam Neurological exam: Present: CN II-XII intact, oriented X3, no focal deficits. Absent: pronater drift, facial droop, speech deficit - Skin Skin exam: Present: dry, intact - Constitutional Vitals: Temp Pulse Resp BP Pulse Ox 98.8 F 84 20 120/68 96 07/17/17 15:00 07/17/17 15:19 07/17/17 15:00 07/17/17 15:00 07/17/17 15:00 General appearance: Present: A&O X 0, no acute distress Internal Medicine: Result - Labs CBC & Chem 7: 07/16/17 04:10 07/16/17 04:10 - ABG Interpretation ABG results: ABG ABG pH 7.32 pH Units (7.32-7.45) 07/12/17 12:15 ABG pCO2 51 mmHg (35-45) H 07/12/17 12:15 ABG pO2 52 mmHg (85-104) L 07/12/17 12:15 ABG O2 Saturation 83 % (95-98) L 07/12/17 12:15 PT/INR, D-dimer PT 13.4 Seconds (9.4-12.1) H 07/08/17 07:17 - VTE Documentation of Mechanical Device: Venous foot pump, device Consult Discharge Plan - Plan Instructions: Laparoscopic Cholecystectomy (DC) Additional Instructions: General Surgical Discharge Instructions 1. No pushing, pulling, or lifting greater than 15 lbs for 4 weeks (depending upon procedure). 2. You may shower beginning today, but no tub baths, soaking, or swimming for 2 weeks. 3. You may resume driving when you are off narcotics and are safe to react in a car. 4. Take ibuprofen every 8 hours for discomfort. If this does not relieve discomfort, you may take the as needed Percocet. Take narcotics as directed. Do not take more narcotics then directed and do not share your narcotics with any other person. Do not drink alcohol while on narcotics. 5. Take stool softeners (Colace) or a water based laxative (Miralax) while taking narcotics. You may hold for loose stools. 6. Report any fevers greater than 100.5F, increase abdominal discomfort, drainage that looks like pus, increased redness or pain at the surgical site, or any vomiting. 7. Report any pain in the calves, shortness of breath, or rapid heartbeat. 8. Follow-up in the office as directed. 9. If you were prescribed antibiotics, do not stop them without talking to your provider. Referrals: Damon Gonzalez MD [Non-Partnered Physician] - 07/24/17 3:35 pm Virgilio Delcid Jr, MD [Primary Care Provider] - 07/21/17 3:00 pm
[2017-07-18] MEDS: *HR* Metoprolol 5 MG/5 ML VIAL IVP SCH ×2 (06:15→12:00)
[2017-07-18] MEDS: *HR* Heparin 5,000 UNIT/ML VIAL SQ SCH (06:15)
[2017-07-18] MEDS: Miconazole w/zinc oxide&karaya 92 APPL/92 GM TUBE TP SCH (08:15)
[2017-07-18] MEDS: Ipratropium/Albuterol Neb 3 ML IH PRN (10:26)
--- NOTE | 2017-07-18 10:34 | Discharge Summary ---
Date of Encounter: 07/22/17 Time of Encounter: 10:27 - Discharge Medications Prescriptions: Hyoscyamine SL [Levsin SL] 0.125 mg SL Q4HR PRN #15 tab.subl PRN Reason: Upper airway secretions LORazepam [Lorazepam Intensol] 0.5 - 1 mg SL Q6H PRN #15 oral.conc PRN Reason: Anxiety/restlessness MORPHINE SUL Oral CONC [Roxanol Oral Conc] 0.25 - 0.5 mg SL Q4H PRN #15 oral.syg PRN Reason: pain/dyspnea Home Medications: Aspirin Enteric Coated [Aspirin EC] 81 mg PO DAILY #30 tablet.dr 03/08/15 [Rx] Calcitriol [Rocaltrol] 0.25 mcg PO DAILY #30 capsule 03/08/15 [Rx] Diltiazem HCl [Diltiazem ER] 180 mg PO DAILY 04/28/17 [History] Quetiapine Fumarate [Seroquel] 12.5 mg PO HS #30 tablet 05/04/17 [Rx] Ipratropium/Albuterol Neb [Duoneb] 3 ml IH [id number] PRN #30 inhsol 05/05/17 [Rx] Carbidopa/Levodopa ER 50/200 [Sinemet ER 50-200 Tab] 1 tab PO TID 07/08/17 [ History] Carbidopa/Levodopa ER 50/200 [Sinemet ER 50-200 Tab] 1 each PO TID tablet.er [Rx] Hyoscyamine SL [Levsin SL] 0.125 mg SL Q4HR PRN #15 tab.subl 07/18/17 [Rx] LORazepam [Lorazepam Intensol] 0.5 - 1 mg SL Q6H PRN #15 oral.conc 07/18/17 [Rx] MORPHINE SUL Oral CONC [Roxanol Oral Conc] 0.25 - 0.5 mg SL Q4H PRN #15 oral.syg 07/18/17 [Rx] Allergies/Adverse Reactions: 3 Allergy/AdvReac Type Severity Reaction Status Date / Time No Known Allergies Allergy Verified 07/08/17 13:54 Date of admission: 07/07/17 09:23 Primary care physician: Virgilio Delcid Jr, MD Consults: 07/07/17 09:53 Consult to Nutrition [CONS] Routine Comment: Consulting Provider: NUTRITION Reason for Dietary Consult: Other Consult to Pastoral Services [CONS] Routine Comment: Consult to Kiln Burner [CONS] Routine Reason for SW Consult: Daughter would like some assistance at home. Previously had help with bathing. 07/10/17 09:44 Consult to Palliative Care [CONS] Routine Comment: Consulting Provider: Palliative Care Haley Reason for Consult: Advanced dementia. Goals of care. Call Completed: Yes 07/10/17 09:54 Consult to Speech Therapy [CONS] Routine Comment: Evaluate, develop and implement POC Reason for Consult: swallow eval Time Notified: 10:01 Call Completed: Yes 07/12/17 11:19 Consult to Wound Care [CONS] Stat Reason for Consult: STAGE 3 TP COCCYX Call Completed: No 07/13/17 16:02 Consult to Occupational Therapy [CONS] Routine Comment: Evaluate, develop and implement POC Reason for Consult: Deconditioning Consult to Physical Therapy [CONS] Routine Comment: Evaluate, develop and implement POC Reason for Consult: Deconditioning Discharging clinician: Dalton Hagen - Patient Status Disposition: Hospice - Home Condition: Fair - Discharge Instructions Instructions: Laparoscopic Cholecystectomy (DC), Chronic Obstructive Pulmonary Disease (DC) Follow Up With: Damon Gonzalez MD [Non-Partnered Physician] - 07/24/17 3:35 pm Virgilio Delcid Jr, MD [Primary Care Provider] - (PATIENT IS GOING TO [facility], NO PCP APPOINTMENT NEEDED) Forms: ED Satisfaction Letter, Work/School Release Additional Instructions: General Surgical Discharge Instructions 1. No pushing, pulling, or lifting greater than 15 lbs for 4 weeks (depending upon procedure). 2. You may shower beginning today, but no tub baths, soaking, or swimming for 2 weeks. 3. You may resume driving when you are off narcotics and are safe to react in a car. 4. Take ibuprofen every 8 hours for discomfort. If this does not relieve discomfort, you may take the as needed Percocet. Take narcotics as directed. Do not take more narcotics then directed and do not share your narcotics with any other person. Do not drink alcohol while on narcotics. 5. Take stool softeners (Colace) or a water based laxative (Miralax) while taking narcotics. You may hold for loose stools. 6. Report any fevers greater than 100.5F, increase abdominal discomfort, drainage that looks like pus, increased redness or pain at the surgical site, or any vomiting. 7. Report any pain in the calves, shortness of breath, or rapid heartbeat. 8. Follow-up in the office as directed. 9. If you were prescribed antibiotics, do not stop them without talking to your provider. Follow-up appointments: If there is not an appointment listed below, please call your physician and schedule a follow-up appointment. If you have congestive heart failure and your symptoms return, make an appointment with your physician. Medication List: Carry an up to date list of medications you are taking at all time. We have given you an updated medication list including any new medications that you have been prescribed. Please provide that list to your primary provider Symptoms: If your condition changes or you experience any of the following symptoms, notify your physician immediately: Unusual or worsening pain, fever, persistent nausea and vomiting, bleeding, increase in swelling (especially in your legs), sudden weight gain, extreme dizziness, chest pain, increased drainage or redness from a wound or incision. Go to the emergency department if you experience a problem with breathing. Weights: If you have a history of swelling or shortness of breath, weigh yourself daily and notify your physician if you have a weight gain of two or more pounds in one day or 5 or more pounds in a week. If you experience any of the warning signs for stroke: Sudden numbness or weakness of the face, arm or leg; especially on one side of the body, sudden confusion, trouble speaking or understanding, sudden trouble seeing in one or both eyes, sudden trouble walking, dizziness, loss of balance or coordination, sudden sever headache with no cause; Call 911 or go to the emergency room. Stroke is a medical emergency. Some risk factors for stroke: Age, cigarette smoking, diabetes, excessive alcohol consumption, family history , high blood pressure, overweight, physical inactivity, prior stroke, heart attack, diagnosis of carotid artery stenosis or other artery disease. If you smoke, STOP: Smoking or tobacco use significantly increases your risk of heart and lung disease. Your chance of disease greatly increases if you continue to smoke. For more information, call the [employer] tobacco quit line for smoking cessation QUIT-NOW ( ) Hospital course: Hospital Course: Ms Jesus is an 82-year-old female with a pmHX of COPD, HTn, Afib not on A/c, and Advanced Dementia due to parkinson's disesase. She presented to emergency department for 2-3 day history of abdominal pain and persistent nausea and an episode of vomiting. The intensity of abdominal pain progressed rapidly in the 12 hours prior to admission. She denies chest pain, shortness of breath, dizziness, diarrhea. Workup in the emergency room elevated white blood cell count 22,000. Her creatinine is 1.29. Lactic acid is 2.4. Direct bilirubin is 1.6 along with an indirect bilirubin of 1.6. Patient does have elevated AST of 142 and lipase of 584, Alk phos 191, ALT 23, . Ultrasound shows dilated CBD 9-10mm. CT abdomen and pelvis showed cholecystitis with questionable tiny focus of gas in the gallbladder wall raises suspicion for emphysematous cholecystitis. Diffuse surrounding inflammatory stranding and fluid. She was evaluated by both GI and surgery who diagnosed ascending cholangitis 2/2 choledocholithiasis; also likley stones passing through to pancreatitic duct causing pancreatitis; keep NPO; GI consult for ERCP, stent and sphincterotomy. An ERCP was performed followed by a Gisella damon. She had a complicated recovery and ultmately she made a decission to go home with hospice. Physical Exam: General appearance: Present: A&O X 0, no acute distress - Head Head exam: Present: atraumatic, normocephalic - Eye Eye exam: Present: PERRL, conjuntiva pink, sclera anicteric Pupils: Present: PERRL - Neck Neck exam general surgery: Present: supple, trachea midline. Absent: lymphadenopathy - Respiratory Respiratory exam: Present: CTAB. Absent: accessory muscle use, rales, rhonchi, wheezes - Cardiovascular Cardiovascular exam: Present: RRR, +S1, +S2. Absent: diastolic murmur, gallop, rubs, systolic murmur - GI/Abdominal GI/Abdominal exam: Present: normal bowel sounds, soft, no peritoneal signs. Absent: diminished bowel sounds, distended, rebound, rigid, tenderness - Extremities Exam Extremities exam: Present: warm, radial pulses palpable and symmetrical. Absent : calf tenderness, cyanotic, pedal edema Assessment and plan: Ascending cholangitis Status post ERCP with sphincterotomy and stent placement. Bilirubin back to normal Continue oral diet. Completed course of Cipro and Flagyl. Home with pallitive care: [facility] referral made Awaiting daughters return before d/c as she is primary care provider Acute Pancreatitis Likely gallstone pancreatitis. Lipase was elevated at 584 on admission. Repeat lipase post ERCP was within normal limits. Status post laparoscopic cholecystectomy Parkinson's disease withdementia: Continue with Sinemet and supportive care Time spent discussing smoking cessation with patient: more than 10 minutes - Time Spent with Patient Total time spent providing and/or coordinating discharge services: Greater than 30 minutes - Constitutional Vitals: Temp Pulse Resp BP Pulse Ox 98.4 F 87 22 147/82 94 07/18/17 08:15 07/18/17 08:15 07/18/17 08:15 07/18/17 08:15 07/18/17 08:15 General appearance: Present: A&O X 0, no acute distress - VTE Documentation of Mechanical Device: Intermittent pneumatic compression device
--- NOTE | 2017-07-18 10:37 | Physician Discharge Referral ---
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 For more information, call the [place] Tobacco Quit Line at 7-495-AWNE-NOW. - Diet/Nutrition Diet/Nutrition: List: Pureed foods and nectar thickend liquids - Activity Activity Orders: Chair - Services Needed Following services are medically necessary services: Nursing, Physical Therapy, Occupational Therapy Home Care Orders: Needs PT/;OT, Wound care and Nursing care. PT/PT to prevent pressure sores - Transfer Medications Home Medications: Aspirin Enteric Coated [Aspirin EC] 81 mg PO DAILY #30 tablet.dr 03/08/15 [Rx] Calcitriol [Rocaltrol] 0.25 mcg PO DAILY #30 capsule 03/08/15 [Rx] Diltiazem HCl [Diltiazem ER] 180 mg PO DAILY 04/28/17 [History] Quetiapine Fumarate [Seroquel] 12.5 mg PO HS #30 tablet 05/04/17 [Rx] Ipratropium/Albuterol Neb [Duoneb] 3 ml IH [id number] PRN #30 inhsol 05/05/17 [Rx] Carbidopa/Levodopa ER 50/200 [Sinemet ER 50-200 Tab] 1 tab PO TID 07/08/17 [ History] Carbidopa/Levodopa ER 50/200 [Sinemet ER 50-200 Tab] 1 each PO TID tablet.er [Rx] Allergies/Adverse Reactions: 3 Allergy/AdvReac Type Severity Reaction Status Date / Time No Known Allergies Allergy Verified 07/08/17 13:54 Certification: Further, I certify that my clinical findings support that this patient is homebound (i.e. absences from home require considerable and taxing effort and are for medical reasons or alevism services or infrequently or short duration when for other reasons) because: Homebound Reason: Post-surgery restriction and or conditions limit ability to leave home Attestation: My signature below is to certify that this patient is under my care and that I, or nurse practitioner, or a physician's drafter assistant working with me, has a face-to -face encounter with this patient.
[2017-07-18] MEDS: Carbidopa/Levodopa ER 50/200 TABLET PO SCH ×2 (10:51→15:38)
[2017-07-18] MEDS: Sennosides/Docusate Sodium TABLET PO SCH (10:51)
[2017-07-18] MEDS: Aspirin Enteric Coated 81 MG Tablet PO SCH (10:51)
[2017-07-18 11:09] VITALS: BP 140/83
[2017-07-18] MEDS ORDERED: FLUARIX QUAD 2017-18 36MOS UP/PF 0.5 ML SYRINGE IM ONE (12:35)
--- NOTE | 2017-07-18 12:49 | Event Note ---
Date of Encounter: 07/18/17 Time of Encounter: 10:30 Patient's daughter Junior arrived. Discussed clinical status and goals of care. She is agreeable to at least meet with [place] [facility] nurse and discuss program. Called and spoke with [facility] and they will send nurse out to speak with her prior to discharge. If she agrees to enroll - may be discharged with [facility]. If she declines, will have home health renewal. D/W pt primary nurse Linette.
--- NOTE | 2017-07-21 10:02 | Event Note ---
Date of Encounter: 07/21/17 Time of Encounter: 09:59 Hospice medical review coordinator certification of terminal illness: Hospice benefit. Start: 07/18/2017 Hospice benefit. In: +90 days Palliative performance scale: -30% History: Patient with history of recent cholecystectomy on 07/09/2017. Patient also has severe dementia. Well as per tension. As the surgery the patient has been in a very definite decline become less responsive to take in her alvarez adequately. Family wishes to have no further aggressive care therefore I believe that These findings support a life expectancy of 6 months or less. I attest that I have compose the above narrative based on my review of the patient's medical records, and or on my examination of the patient. George Roper M.D. Associate center medical and lab director. [facility]
== END 2017-07-18 18:06 | disposition hospice, home (50) | DRG 417 ==
LOC: 3ANU 03:57 → EMEROO 03:57 → 2NNU 08:33 → ICNU 08:43 → SUATTDRO 09:23 → 2NNU 07-10 23:25
PROVIDERS: ADMIT Internal Medicine; ATTEND Internal Medicine